=== PATIENT | male | born 1955 | race Caucasian/White ===

== ENCOUNTER 2021-04-24 13:07 | Inpatient (IN) | payer MEDICARE, OTHER ==
[~2021-04-24 13:07] MED LIST: Iopamidol-370 76% 500 ML 1 ML ONE
[2021-04-24] MEDS ORDERED: Ketamine 50 MG/ML (10ML VIAL) ONE (13:31)
[2021-04-24] MEDS ORDERED: Rocuronium Bromide 10 MG/ML (10ML VIAL) ONE (13:32)
[2021-04-24] MEDS ORDERED: Norepinephrine 8 MG/0.9% NS 250 ML ONE (13:41)
[2021-04-24] MEDS ORDERED: EPINEPHrine 1 MG/ML VIAL ONE (13:50)
[2021-04-24] MEDS ORDERED: EPINEPHrine 1 MG/10 ML Abboject SYRINGE ONE (13:51)
[2021-04-24 14:05] LABS: #Lymphocytes 0.9 thou/uL (1.20-3.40); #Monocytes 0.4 thou/uL (0.11-0.59); #Neutrophils 6.9 thou/uL (1.40-6.50); %Basophils 0.2 % (0.0-1.0); %Eosinophils 0.4 % (0.0-10.0); %Neutrophils 83.4 % (42.0-75.0); Mean Corpuscular HGB CONC 31.8 g/dL (32.0-36.0); Mean Corpuscular Hemoglobin 33.3 pg (27.0-31.0); Mean Platelet Volume 8.8 fL (7.4-10.4); Platelet Count 280 thou/uL (130-400); RBC Distribution Width 15.9 % (11.5-14.5); Red Blood Cell (RBC) Count 4.49 mill/uL (4.70-6.10); White Blood Cell (WBC) Count 8.3 thou/uL (4.8-10.8)
[2021-04-24 14:13] LABS: Acetaminophen Less than 6.0 mcg/mL (10.0-30.0); Alcohol Less than 10 mg/dL (Less than 10); Salicylate Less than 8.0 mg/dL (15.0-30.0)
[2021-04-24] MEDS ORDERED: Cefepime 2 GM VIAL ONE (14:20)
[2021-04-24] MEDS ORDERED: Fentanyl 100 MCG/2 ML VIAL ONE (14:20)
[2021-04-24 14:24] LABS: ALT (SGPT) 33 U/L (8-55); AST (SGOT) 40 U/L (5-34); Albumin 3.7 g/dL (3.4-4.8); Alkaline Phosphatase 141 U/L (40-110); Anion Gap 17 mmol/L (10-20); BUN (Urea Nitrogen) 31 mg/dL (8.4-25.7); Bilirubin, Total 1.7 mg/dL (0.2-1.2); Calc. Creatinine Clearance 0 mL/min (70-130); Calcium 8.4 mg/dL (7.8-10.44); Carbon Dioxide 27 mmol/L (23-31); Chloride 85 mmol/L (98-107); Glucose 206 mg/dL (80-115); Potassium 4.3 mmol/L (3.5-5.1); Protein, Total 6.7 g/dL (5.8-8.1); Sodium 125 mmol/L (136-145)
[2021-04-24 14:25] LABS: Hypochromia SLIGHT = 6-15 cells (100X) (0-5/hpf); MDiff Complete? YES; Macrocytosis SLIGHT = 6-15 cells (100X) (0-5/hpf); Platelet Morphology Comment Appears Adequate; Polychromasia SLIGHT = 2-3 cells (100X) (0-2/hpf)
[2021-04-24 14:54] LABS: CKMB 15.9 ng/mL (0-6.6)
[2021-04-24] MEDS ORDERED: Fentanyl CADD 100 ML IV SCH (15:00)
[2021-04-24] MEDS ORDERED: VANCOMYCIN 2 GRAM/400 ML BAG 2 GM in Premix Bag 1 BAG IVPB SCH (15:00)
[2021-04-24 15:27] LABS: Bilirubin Negative (Negative); Blood, Urine 3+ (Negative); Clarity Turbid (Clear); Glucose, Urine (Dipstick) Normal (Negative); Ketone, Urine Negative (Negative); Leukocyte 500 Leu/uL (Negative); Nitrite Negative (Negative); Protein, Urine (Dipstick) 100 mg/dL (Neg-Trace); RBC/HPF 21-50 HPF (0-3); Specific Gravity, Urine 1.011 (1.002-1.036); Squamous Epithelial 0-3 HPF (0-3); Urobilinogen Normal mg/dL (Less than 2); pH, Urine 6.5 (5.0-9.0)
[2021-04-24 15:28] LABS: SARS-CoV-2 NAA Rapid Test Not Detected (NotDetected)
[2021-04-24] MEDS ORDERED: Sodium Chloride 154 MEQ in Dextrose 10% in Water 1,000 ML IV SCH (15:30)
[2021-04-24 15:35] LABS: Actual Bicarbonate (HCO3a) 21.4 mEq/L (22-28); Analyzer IN Cardio ER; Base Excess (BEa) -1.3 mEq/L (-2.0 to +3.0); CO2 Tension 31.1 mmHg (35.0-45.0); Calcium, Ionized (arterial) 1.01 mmol/L (1.12-1.30); Carboxyhemoglobin (COHb) 1.4 gm% (0.0-3.0); Hemoglobin (Hb) 15.4 g/dL (14.0-18.0); Potassium - ABG Lab 3.33 mmol/L (3.70-5.30); pH, Arterial 7.46 (7.35-7.45)
[2021-04-24 15:39] LABS: Bacteria/HPF 1+ HPF (None Seen)
[2021-04-24 15:57] LABS: INR-International Normal Ratio 1.4; PTT 29.8 sec (22.9-36.1); Prothrombin Time 17.6 sec (12.0-14.7)
[2021-04-24 16:14] LABS: Amphetamine Not Detected (NotDetected); Barbiturates Screen Not Detected (NotDetected); Benzodiazepine Screen Not Detected (NotDetected); Cocaine Metabolite Screen Not Detected (NotDetected); Methadone Not Detected (NotDetected); Methamphetamine Not Detected (NotDetected); Opiate Screen Not Detected (NotDetected); Oxycodone Screen Not Detected (NotDetected); Phencyclidine (PCP) Not Detected (NotDetected); THC/Cannabinoid Screen Not Detected (NotDetected); Tricyclic Screen Not Detected (NotDetected)
[2021-04-24 16:20] LABS: ALV-art Gradient 356.125 mmHg (0-20); Puncture Site LRA
[2021-04-24 16:48] LABS: Lactic Acid 3.4 mmol/L (0.5-2.2)
[2021-04-24] MEDS ORDERED: Norepinephrine 8 MG/0.9% NS 250 ML IVPB PRN (17:46)
[2021-04-24] MEDS ORDERED: Acetaminophen 650 MG Suppository PR PRN (17:47)
[2021-04-24] MEDS ORDERED: Ondansetron PF 4 MG/2 ML Vial IVP PRN (17:47)
[2021-04-24] MEDS ORDERED: Dextrose 50% Abboject 50 ML SYRINGE SLOW IVP PRN (17:47)
[2021-04-24] MEDS ORDERED: Bisacodyl 10 MG SUPP PR PRN (17:47)
[2021-04-24] MEDS ORDERED: Dextrose 5% in Water 1,000 ML IV PRN (17:47)
[2021-04-24] MEDS ORDERED: Senokot S 8.6-50 MG TAB PER TUBE PRN (17:47)
[2021-04-24] MEDS ORDERED: Ventilator Sedation Protocol 1 EACH FS SCH (18:00)
[2021-04-24 18:20] LABS: Troponin I 0.276 ng/mL (< 0.028)
[2021-04-24] MEDS ORDERED: DISCONTINUE PREVIOUS NARCOTIC PAIN MEDICATIONS AND BENZODIAZEPINES FS SCH (19:00)
[2021-04-24] MEDS ORDERED: Morphine 2 MG/ML VIAL SLOW IVP PRN (19:00)
[2021-04-24] MEDS ORDERED: Propofol BOLUS 1,000 MG/100 ML VIAL IV PRN (19:00)
[2021-04-24] MEDS ORDERED: Fentanyl BOLUS 250 ML IVPB PRN (19:00)
[2021-04-24 20:53] LABS: Actual Bicarbonate (HCO3a) 24.8 mEq/L (22-28); Base Excess (BEa) -4.3 mEq/L (-2.0 to +3.0); Calcium, Ionized (arterial) 1.07 mmol/L (1.12-1.30); Carboxyhemoglobin (COHb) 1.1 gm% (0.0-3.0); Hemoglobin (Hb) 16.4 g/dL (14.0-18.0); O2 Tension (PaO2), arterial 66.7 mmHg (> 80.0); Potassium - ABG Lab 3.83 mmol/L (3.70-5.30); pH, Arterial 7.22 (7.35-7.45)
[2021-04-24 20:54] LABS: CO2 Tension 61.9 mmHg (35.0-45.0); Puncture Site RRA
[2021-04-24 20:57] LABS: ALV-art Gradient 283.725 mmHg (0-20)
[2021-04-24] MEDS: Vasopressin 20 UNIT, Admixture Fee 1 EACH in Sodium Chloride 0.9% 50 ML IV SCH (21:07)
[2021-04-24 21:12] LABS: Creatinine, Urine 72.16 mg/dL (63-166)
[2021-04-24] MEDS ORDERED: Hydrocortisone Sod Succ/PF 100 mg/2 ml Vial IVP SCH (21:30)
[2021-04-24] MEDS ORDERED: Lidocaine 1% (PF) 30 ML VIAL ONE ×2 (21:47→22:31)
[2021-04-24 21:49] LABS: Lactic Acid 3.8 mmol/L (0.5-2.2)
[2021-04-24] MEDS ORDERED: Furosemide 40 MG/4 ML VIAL ONE (21:56)
[2021-04-24] MEDS ORDERED: Dextrose 50% Abboject 50 ML SYRINGE ONE (21:57)
[2021-04-24] MEDS ORDERED: Sodium Bicarb 50 MEQ/50 ML Abboject 8.4% SYRINGE ONE (21:58)
[2021-04-24 22:02] LABS: Troponin I 0.387 ng/mL (< 0.028)
[2021-04-24] MEDS: Amiodarone 450 MG, Admixture Fee 1 EACH in Dextrose 5% in Water 250 ML IVPB SCH (22:14)
[2021-04-24 22:34] LABS: Actual Bicarbonate (HCO3a) 24.9 mEq/L (22-28); Base Excess (BEa) -4.6 mEq/L (-2.0 to +3.0); Calcium, Ionized (arterial) 1.06 mmol/L (1.12-1.30); Carboxyhemoglobin (COHb) 1.1 gm% (0.0-3.0); Hemoglobin (Hb) 16.2 g/dL (14.0-18.0); O2 Tension (PaO2), arterial 86.6 mmHg (> 80.0); Potassium - ABG Lab 3.65 mmol/L (3.70-5.30)
[2021-04-24 22:35] LABS: CO2 Tension 64.7 mmHg (35.0-45.0)
[2021-04-24 22:36] LABS: Puncture Site Arterial Line
[2021-04-24 22:38] LABS: ALV-art Gradient 545.525 mmHg (0-20)
[2021-04-24] MEDS ORDERED: Phenylephrine 40 MG/NS 250 ML 40 MG in Premix Bag 1 BAG IVPB SCH (23:15)
[2021-04-24] MEDS: Heparin 5,000 UNITS/ML VIAL SC SCH (23:23)
[2021-04-24] MEDS: Sodium Bicarbonate 150 MEQ in Dextrose 5 %-0.45 % NaCl 1,000 ML IV SCH (23:24)
[2021-04-24 23:57] LABS: INR-International Normal Ratio 1.4; PTT 34.5 sec (22.9-36.1); Prothrombin Time 17.1 sec (12.0-14.7)
[2021-04-25 00:12] LABS: Actual Bicarbonate (HCO3a) 25.4 mEq/L (22-28); Base Excess (BEa) -3.3 mEq/L (-2.0 to +3.0); Calcium, Ionized (arterial) 1.02 mmol/L (1.12-1.30); Carboxyhemoglobin (COHb) 1.3 gm% (0.0-3.0); Hemoglobin (Hb) 16.4 g/dL (14.0-18.0); Potassium - ABG Lab 3.67 mmol/L (3.70-5.30)
[2021-04-25 00:14] LABS: pH, Arterial 7.24 (7.35-7.45)
[2021-04-25 00:15] LABS: CO2 Tension 60.4 mmHg (35.0-45.0); O2 Tension (PaO2), arterial 52.6 mmHg (> 80.0)
[2021-04-25 00:16] LABS: Puncture Site Arterial Line
[2021-04-25] MEDS ORDERED: Furosemide 40 MG/4 ML VIAL SLOW IVP SCH (02:00)
[2021-04-25] MEDS: Cefepime 1 GM in Sodium Chloride 0.9% 100 ML IVPB SCH ×2 (02:38→13:48)
[2021-04-25] MEDS: Vasopressin 20 UNIT, Admixture Fee 1 EACH in Sodium Chloride 0.9% 50 ML IV SCH ×3 (02:50→15:47)
[2021-04-25 03:06] LABS: Actual Bicarbonate (HCO3a) 21.9 mEq/L (22-28); Base Excess (BEa) 1.3 mEq/L (-2.0 to +3.0); Calcium, Ionized (arterial) 0.96 mmol/L (1.12-1.30); Carboxyhemoglobin (COHb) 0.9 gm% (0.0-3.0); Hemoglobin (Hb) 15.5 g/dL (14.0-18.0); O2 Tension (PaO2), arterial 75.8 mmHg (> 80.0); Potassium - ABG Lab 3.61 mmol/L (3.70-5.30)
[2021-04-25] MEDS: Hydrocortisone Sod Succ/PF 100 mg/2 ml Vial IVP SCH ×4 (03:55→22:32)
[2021-04-25 04:37] LABS: CO2 Tension 25.3 mmHg (35.0-45.0); pH, Arterial 7.56 (7.35-7.45)
[2021-04-25 04:38] LABS: ALV-art Gradient 605.575 mmHg (0-20); Puncture Site Arterial Line
[2021-04-25 04:57] LABS: Hemoglobin 14.7 g/dL (14.0-18.0); Mean Corpuscular HGB CONC 31.8 g/dL (32.0-36.0); Mean Platelet Volume 8.3 fL (7.4-10.4); Platelet Count 256 thou/uL (130-400); RBC Distribution Width 15.7 % (11.5-14.5); Red Blood Cell (RBC) Count 4.44 mill/uL (4.70-6.10); White Blood Cell (WBC) Count 13.4 thou/uL (4.8-10.8)
[2021-04-25 05:17] LABS: ALT (SGPT) 28 U/L (8-55); AST (SGOT) 27 U/L (5-34); Albumin 3.1 g/dL (3.4-4.8); Alkaline Phosphatase 123 U/L (40-110); Anion Gap 19 mmol/L (10-20); BUN (Urea Nitrogen) 34 mg/dL (8.4-25.7); Calc. Creatinine Clearance 45 mL/min (70-130); Calcium 8.1 mg/dL (7.8-10.44); Carbon Dioxide 26 mmol/L (23-31); Chloride 87 mmol/L (98-107); Globulin 2.4 g/dL (2.4-3.5); Glucose 162 mg/dL (80-115); Potassium 3.7 mmol/L (3.5-5.1); Protein, Total 5.5 g/dL (5.8-8.1); Sodium 128 mmol/L (136-145)
[2021-04-25 05:26] LABS: Lactic Acid 4.4 mmol/L (0.5-2.2)
[2021-04-25 05:43] LABS: Band 23 % (5-11); Lymphocytes 4 % (21-51); MDiff Complete? YES; Monocytes 5 % (0-10); Neutrophil 68 % (42-75)
[2021-04-25] MEDS: Amiodarone 450 MG, Admixture Fee 1 EACH in Dextrose 5% in Water 250 ML IVPB SCH ×2 (06:58→22:33)
[2021-04-25 07:19] LABS: Actual Bicarbonate (HCO3a) 20.9 mEq/L (22-28); Base Excess (BEa) 1.2 mEq/L (-2.0 to +3.0); Calcium, Ionized (arterial) 0.94 mmol/L (1.12-1.30); Carboxyhemoglobin (COHb) 0.9 gm% (0.0-3.0); O2 Tension (PaO2), arterial 91.4 mmHg (> 80.0); Potassium - ABG Lab 3.39 mmol/L (3.70-5.30)
[2021-04-25 07:20] LABS: pH, Arterial 7.58 (7.35-7.45)
[2021-04-25 07:21] LABS: ALV-art Gradient 521.925 mmHg (0-20); CO2 Tension 22.7 mmHg (35.0-45.0); Puncture Site Arterial Line
[2021-04-25] MEDS: Heparin 5,000 UNITS/ML VIAL SC SCH ×3 (09:17→20:47)
[2021-04-25] MEDS: Pantoprazole 40 MG VIAL IVP SCH (09:18)
[2021-04-25] MEDS: Sodium Bicarbonate 150 MEQ in Dextrose 5 %-0.45 % NaCl 1,000 ML IV SCH ×2 (10:31→22:33)
[2021-04-25] MEDS: Lorazepam 2 MG/ML VIAL SLOW IVP PRN ×2 (11:02→15:45)
[2021-04-25] MEDS ORDERED: Fentanyl CADD 100 ML ONE ×2 (11:40→23:58)
[2021-04-25] MEDS: Albumin 25% 25 GM/100 ML BOT IVPB SCH ×2 (13:48→20:47)
[2021-04-25 16:23] LABS: Vancomycin, Random 20.6 ug/mL (See Comment)
[2021-04-25] MEDS ORDERED: VANCOMYCIN 2 GRAM/400 ML BAG 2 GM in Premix Bag 1 BAG IVPB SCH (17:00)
[2021-04-25] MEDS: Vancomycin 1.5 GRAM/300 ML BAG 1.5 GM in Premix Bag 1 BAG IVPB SCH (17:49)
[2021-04-25 19:32] LABS: Lactic Acid 3.5 mmol/L (0.5-2.2)
[2021-04-25] MEDS: Propofol 1,000 MG/100 ML VIAL IV PRN (21:38)
[2021-04-26] MEDS: Fentanyl CADD 100 ML IV SCH ×2 (00:18→13:07)
[2021-04-26 00:32] LABS: Lactic Acid 3.3 mmol/L (0.5-2.2)
[2021-04-26] MEDS: Cefepime 1 GM in Sodium Chloride 0.9% 100 ML IVPB SCH ×2 (02:14→15:40)
[2021-04-26] MEDS: Hydrocortisone Sod Succ/PF 100 mg/2 ml Vial IVP SCH ×4 (03:35→22:10)
[2021-04-26 04:55] LABS: ALT (SGPT) 15 U/L (8-55); AST (SGOT) 13 U/L (5-34); Albumin 3.3 g/dL (3.4-4.8); Alkaline Phosphatase 79 U/L (40-110); Anion Gap 18 mmol/L (10-20); BUN (Urea Nitrogen) 41 mg/dL (8.4-25.7); Calc. Creatinine Clearance 46 mL/min (70-130); Calcium 7.8 mg/dL (7.8-10.44); Carbon Dioxide 26 mmol/L (23-31); Chloride 88 mmol/L (98-107); Globulin 1.8 g/dL (2.4-3.5); Glucose 222 mg/dL (80-115); Protein, Total 5.1 g/dL (5.8-8.1); Sodium 129 mmol/L (136-145)
[2021-04-26 05:17] LABS: Potassium 2.6 mmol/L (3.5-5.1)
[2021-04-26] MEDS ORDERED: Potassium Chloride 40 MEQ in Premix Bag 1 BAG IVPB SCH (05:30)
[2021-04-26] MEDS ORDERED: Potassium Chloride 20 MEQ TAB PO SCH ×2 (05:30→18:15)
[2021-04-26 05:39] LABS: Mean Corpuscular HGB CONC 33.6 g/dL (32.0-36.0); Mean Corpuscular Hemoglobin 33.6 pg (27.0-31.0); Mean Corpuscular Volume 99.9 fL (78.0-98.0); Mean Platelet Volume 8.5 fL (7.4-10.4); Platelet Count 186 thou/uL (130-400); Red Blood Cell (RBC) Count 3.57 mill/uL (4.70-6.10); White Blood Cell (WBC) Count 9.1 thou/uL (4.8-10.8)
[2021-04-26] MEDS ORDERED: Magnesium 5 GM/10 ML Abboject SYRINGE ONE (06:11)
[2021-04-26 06:18] LABS: Band 27 % (5-11); Lymphocytes 6 % (21-51); MDiff Complete? YES; Monocytes 1 % (0-10); Neutrophil 63 % (42-75); Platelet Morphology Comment Appears Adequate; Polychromasia SLIGHT = 2-3 cells (100X) (0-2/hpf); Reactive Lymphocytes 3 % (0-10)
[2021-04-26 07:32] LABS: Lactic Acid 3.6 mmol/L (0.5-2.2)
[2021-04-26 07:34] LABS: Phosphorus 2.8 mg/dL (2.3-4.7)
[2021-04-26] MEDS: Vasopressin 20 UNIT, Admixture Fee 1 EACH in Sodium Chloride 0.9% 50 ML IV SCH (07:46)
[2021-04-26] MEDS: Propofol 1,000 MG/100 ML VIAL IV PRN ×2 (08:09→22:10)
[2021-04-26] MEDS: Pantoprazole 40 MG VIAL IVP SCH (08:10)
[2021-04-26] MEDS: Potassium Bicarbonate/Cit Ac 20 MEQ TAB PER TUBE SCH ×2 (08:10→10:56)
[2021-04-26] MEDS: Heparin 5,000 UNITS/ML VIAL SC SCH ×3 (08:11→20:08)
[2021-04-26 08:17] LABS: Actual Bicarbonate (HCO3a) 22.5 mEq/L (22-28); Base Excess (BEa) 4.1 mEq/L (-2.0 to +3.0); Carboxyhemoglobin (COHb) 0.2 gm% (0.0-3.0); Hemoglobin (Hb) 12.7 g/dL (14.0-18.0); Potassium - ABG Lab 3.53 mmol/L (3.70-5.30)
[2021-04-26 08:41] LABS: CO2 Tension 19.4 mmHg (35.0-45.0); O2 Tension (PaO2), arterial 52.8 mmHg (> 80.0); Puncture Site Arterial Line; pH, Arterial 7.68 (7.35-7.45)
[2021-04-26] MEDS ORDERED: Digoxin 0.5 MG/2 ML AMP SLOW IVP SCH (09:45)
[2021-04-26 10:10] LABS: Anion Gap 18 mmol/L (10-20); BUN (Urea Nitrogen) 39 mg/dL (8.4-25.7); Calc. Creatinine Clearance 46 mL/min (70-130); Calcium 7.8 mg/dL (7.8-10.44); Carbon Dioxide 26 mmol/L (23-31); Chloride 88 mmol/L (98-107); Glucose 240 mg/dL (80-115); Potassium 3.3 mmol/L (3.5-5.1); Sodium 129 mmol/L (136-145)
[2021-04-26] MEDS: Sodium Bicarbonate 150 MEQ in Dextrose 5 %-0.45 % NaCl 1,000 ML IV SCH (11:48)
[2021-04-26 12:25] LABS: Lactic Acid 3.3 mmol/L (0.5-2.2)
[2021-04-26] MEDS ORDERED: Fentanyl CADD 100 ML ONE (13:04)
[2021-04-26] MEDS: CEFEPIME HCL IN DEXTROSE 5 % 1 GM in Premix Bag 1 BAG IVPB SCH (15:18)
[2021-04-26 16:41] LABS: Albumin 3.1 g/dL (3.4-4.8); Anion Gap 19 mmol/L (10-20); BUN (Urea Nitrogen) 39 mg/dL (8.4-25.7); BUN/Creatinine Ratio 16.46; Calc. Creatinine Clearance 44 mL/min (70-130); Calcium 7.8 mg/dL (7.8-10.44); Carbon Dioxide 28 mmol/L (23-31); Chloride 87 mmol/L (98-107); Glucose 172 mg/dL (80-115); Phosphorus 3.3 mg/dL (2.3-4.7); Potassium 3.5 mmol/L (3.5-5.1); Sodium 130 mmol/L (136-145)
[2021-04-26] MEDS: Lactated Ringer's 1,000 ML IV SCH (17:25)
[2021-04-26] MEDS: Vancomycin 1.5 GRAM/300 ML BAG 1.5 GM in Premix Bag 1 BAG IVPB SCH (17:27)
[2021-04-26 18:57] LABS: Lactic Acid 3.8 mmol/L (0.5-2.2)
[2021-04-26] MEDS ORDERED: Potassium Bicarbonate/Cit Ac 20 MEQ TAB PO SCH (19:00)
[2021-04-27 01:09] LABS: Lactic Acid 2.8 mmol/L (0.5-2.2)
[2021-04-27] MEDS ORDERED: Fentanyl CADD 100 ML ONE ×2 (01:54→15:04)
[2021-04-27] MEDS: CEFEPIME HCL IN DEXTROSE 5 % 1 GM in Premix Bag 1 BAG IVPB SCH ×2 (01:58→13:59)
[2021-04-27] MEDS: Fentanyl CADD 100 ML IV SCH (01:59)
[2021-04-27] MEDS: Hydrocortisone Sod Succ/PF 100 mg/2 ml Vial IVP SCH ×4 (05:01→21:01)
[2021-04-27] MEDS: Lactated Ringer's 1,000 ML IV SCH ×2 (05:04→19:46)
[2021-04-27 05:15] LABS: ALT (SGPT) 17 U/L (8-55); AST (SGOT) 12 U/L (5-34); Alkaline Phosphatase 76 U/L (40-110); Anion Gap 18 mmol/L (10-20); BUN (Urea Nitrogen) 42 mg/dL (8.4-25.7); Bilirubin, Total 1.8 mg/dL (0.2-1.2); Calc. Creatinine Clearance 49 mL/min (70-130); Calcium 8.2 mg/dL (7.8-10.44); Carbon Dioxide 29 mmol/L (23-31); Chloride 87 mmol/L (98-107); Glucose 130 mg/dL (80-115); Magnesium 1.8 mg/dL (1.6-2.6); Potassium 3.5 mmol/L (3.5-5.1); Sodium 130 mmol/L (136-145)
[2021-04-27 05:18] LABS: Lactic Acid 2.5 mmol/L (0.5-2.2)
[2021-04-27 05:24] LABS: Band 14 % (5-11); Hemoglobin 12.2 g/dL (14.0-18.0); Lymphocytes 5 % (21-51); MDiff Complete? YES; Mean Corpuscular Hemoglobin 34.5 pg (27.0-31.0); Mean Platelet Volume 8.9 fL (7.4-10.4); Monocytes 7 % (0-10); Neutrophil 74 % (42-75); Platelet Count 181 thou/uL (130-400); RBC Distribution Width 16.3 % (11.5-14.5); Red Blood Cell (RBC) Count 3.55 mill/uL (4.70-6.10); White Blood Cell (WBC) Count 12.6 thou/uL (4.8-10.8)
[2021-04-27] MEDS: Propofol 1,000 MG/100 ML VIAL IV PRN ×2 (05:56→15:22)
[2021-04-27 08:12] LABS: Actual Bicarbonate (HCO3a) 26.1 mEq/L (22-28); Base Excess (BEa) 5.1 mEq/L (-2.0 to +3.0); Calcium, Ionized (arterial) 0.94 mmol/L (1.12-1.30); Carboxyhemoglobin (COHb) 0.6 gm% (0.0-3.0); Potassium - ABG Lab 3.32 mmol/L (3.70-5.30)
[2021-04-27 08:14] LABS: pH, Arterial 7.59 (7.35-7.45)
[2021-04-27 08:15] LABS: O2 Tension (PaO2), arterial 50.6 mmHg (> 80.0); Peep/CPAP 12.5 cmH2O; Puncture Site Arterial Line
[2021-04-27] MEDS ORDERED: Digoxin 0.5 MG/2 ML AMP SLOW IVP SCH (08:45)
[2021-04-27] MEDS: Digoxin 0.5 MG/2 ML AMP SLOW IVP SCH (08:50)
[2021-04-27] MEDS: Pantoprazole 40 MG VIAL IVP SCH (08:52)
[2021-04-27] MEDS: Heparin 5,000 UNITS/ML VIAL SC SCH ×3 (08:54→21:00)
[2021-04-27] MEDS ORDERED: Vecuronium 10 MG VIAL IVP PRN (11:34)
[2021-04-27] MEDS ORDERED: Albumin 25% 25 GM/100 ML BOT IVPB SCH (14:25)
[2021-04-27] MEDS ORDERED: Furosemide 20 MG/2 ML VIAL SLOW IVP SCH (14:30)
[2021-04-27 17:13] LABS: Vancomycin, Trough 34.7 ug/mL
[2021-04-27] MEDS: Furosemide 20 MG/2 ML VIAL SLOW IVP SCH (22:53)
[2021-04-28] MEDS: CEFEPIME HCL IN DEXTROSE 5 % 1 GM in Premix Bag 1 BAG IVPB SCH ×2 (01:12→13:28)
[2021-04-28] MEDS: Propofol 1,000 MG/100 ML VIAL IV PRN ×2 (01:12→10:24)
[2021-04-28] MEDS: Hydrocortisone Sod Succ/PF 100 mg/2 ml Vial IVP SCH ×4 (03:27→21:34)
[2021-04-28] MEDS ORDERED: Fentanyl CADD 100 ML ONE (04:08)
[2021-04-28] MEDS: Fentanyl CADD 100 ML IV SCH (04:11)
[2021-04-28 04:44] LABS: ALT (SGPT) 15 U/L (8-55); AST (SGOT) 11 U/L (5-34); Alkaline Phosphatase 69 U/L (40-110); Anion Gap 16 mmol/L (10-20); BUN (Urea Nitrogen) 40 mg/dL (8.4-25.7); Bilirubin, Total 1.6 mg/dL (0.2-1.2); Calc. Creatinine Clearance 61 mL/min (70-130); Calcium 8.3 mg/dL (7.8-10.44); Carbon Dioxide 33 mmol/L (23-31); Chloride 89 mmol/L (98-107); Glucose 124 mg/dL (80-115); Magnesium 1.9 mg/dL (1.6-2.6); Sodium 135 mmol/L (136-145)
[2021-04-28 04:46] LABS: Digoxin 0.45 ng/mL (0.8-2.0)
[2021-04-28 04:47] LABS: Band 3 % (5-11); Hemoglobin 11.7 g/dL (14.0-18.0); Lymphocytes 5 % (21-51); MDiff Complete? YES; Mean Corpuscular HGB CONC 32.7 g/dL (32.0-36.0); Mean Corpuscular Hemoglobin 33.5 pg (27.0-31.0); Mean Platelet Volume 9.1 fL (7.4-10.4); Monocytes 5 % (0-10); Neutrophil 87 % (42-75); Platelet Count 161 thou/uL (130-400); White Blood Cell (WBC) Count 9.2 thou/uL (4.8-10.8)
[2021-04-28 04:48] LABS: Potassium 2.6 mmol/L (3.5-5.1)
[2021-04-28] MEDS ORDERED: Electrolyte Replacement Protocol 1 EACH FS PRN (05:33)
[2021-04-28] MEDS ORDERED: Magnesium 2 GM/50 ML 2 GM in Premix Bag 1 BAG IVPB SCH (05:45)
[2021-04-28] MEDS ORDERED: Potassium Chloride 40 MEQ in Premix Bag 1 BAG IVPB SCH (05:45)
[2021-04-28] MEDS ORDERED: Potassium Chloride 20 MEQ TAB PER TUBE SCH (06:00)
[2021-04-28 06:21] LABS: Phosphorus 3.7 mg/dL (2.3-4.7)
[2021-04-28] MEDS: Potassium Bicarbonate/Cit Ac 20 MEQ TAB PER TUBE SCH ×3 (06:30→13:30)
[2021-04-28] MEDS: Furosemide 20 MG/2 ML VIAL SLOW IVP SCH ×3 (06:31→22:02)
[2021-04-28] MEDS ORDERED: Digoxin 0.5 MG/2 ML AMP SLOW IVP SCH (07:00)
[2021-04-28 07:22] LABS: Actual Bicarbonate (HCO3a) 29.6 mEq/L (22-28); Base Excess (BEa) 7.9 mEq/L (-2.0 to +3.0); CO2 Tension 31.8 mmHg (35.0-45.0); Calcium, Ionized (arterial) 1.01 mmol/L (1.12-1.30); Carboxyhemoglobin (COHb) 0.2 gm% (0.0-3.0); Hemoglobin (Hb) 12.8 g/dL (14.0-18.0); O2 Tension (PaO2), arterial 67.7 mmHg (> 80.0); Potassium - ABG Lab 2.54 mmol/L (3.70-5.30)
[2021-04-28] MEDS: Digoxin 0.5 MG/2 ML AMP SLOW IVP SCH (07:41)
[2021-04-28 07:42] LABS: Puncture Site RRA; pH, Arterial 7.59 (7.35-7.45)
[2021-04-28 07:45] LABS: Peep/CPAP 12.5 cmH2O
[2021-04-28] MEDS: Pantoprazole 40 MG VIAL IVP SCH (08:03)
[2021-04-28] MEDS: Heparin 5,000 UNITS/ML VIAL SC SCH ×3 (08:03→21:34)
[2021-04-28] MEDS ORDERED: Electrolyte Replacement Protocol FS PRN (12:45)
[2021-04-28 17:28] LABS: Vancomycin, Random 27.9 ug/mL (See Comment)
[2021-04-28] MEDS ORDERED: Vancomycin 1.5 GRAM/300 ML BAG 1.5 GM in Premix Bag 1 BAG IVPB SCH (18:00)
[2021-04-29] MEDS: CEFEPIME HCL IN DEXTROSE 5 % 1 GM in Premix Bag 1 BAG IVPB SCH ×2 (01:06→14:35)
[2021-04-29 03:56] LABS: ALT (SGPT) 14 U/L (8-55); AST (SGOT) 10 U/L (5-34); Albumin 3.2 g/dL (3.4-4.8); Alkaline Phosphatase 76 U/L (40-110); Anion Gap 14 mmol/L (10-20); BUN (Urea Nitrogen) 43 mg/dL (8.4-25.7); Bilirubin, Total 1.2 mg/dL (0.2-1.2); Calc. Creatinine Clearance 55 mL/min (70-130); Calcium 8.4 mg/dL (7.8-10.44); Carbon Dioxide 35 mmol/L (23-31); Chloride 90 mmol/L (98-107); Globulin 2.1 g/dL (2.4-3.5); Glucose 149 mg/dL (80-115); Potassium 3.4 mmol/L (3.5-5.1); Protein, Total 5.3 g/dL (5.8-8.1); Sodium 136 mmol/L (136-145)
[2021-04-29 04:10] LABS: Hemoglobin 12.7 g/dL (14.0-18.0); Mean Corpuscular HGB CONC 31.5 g/dL (32.0-36.0); Mean Corpuscular Hemoglobin 32.8 pg (27.0-31.0); Mean Platelet Volume 9.4 fL (7.4-10.4); Platelet Count 155 thou/uL (130-400); RBC Distribution Width 15.8 % (11.5-14.5); Red Blood Cell (RBC) Count 3.87 mill/uL (4.70-6.10); White Blood Cell (WBC) Count 9.2 thou/uL (4.8-10.8)
[2021-04-29] MEDS: Hydrocortisone Sod Succ/PF 100 mg/2 ml Vial IVP SCH (04:36)
[2021-04-29] MEDS ORDERED: Potassium Bicarbonate/Cit Ac 20 MEQ TAB PO SCH (04:45)
[2021-04-29 04:52] LABS: Band 7 % (5-11); Lymphocytes 3 % (21-51); MDiff Complete? YES; Monocytes 2 % (0-10); Neutrophil 88 % (42-75)
[2021-04-29] MEDS: Furosemide 20 MG/2 ML VIAL SLOW IVP SCH ×3 (06:03→22:07)
[2021-04-29 07:32] LABS: Actual Bicarbonate (HCO3a) 37.5 mEq/L (22-28); Base Excess (BEa) 10.9 mEq/L (-2.0 to +3.0); CO2 Tension 56.7 mmHg (35.0-45.0); Calcium, Ionized (arterial) 1.07 mmol/L (1.12-1.30); O2 Tension (PaO2), arterial 76.9 mmHg (> 80.0); Potassium - ABG Lab 4.03 mmol/L (3.70-5.30); pH, Arterial 7.44 (7.35-7.45)
[2021-04-29 07:34] LABS: Puncture Site RRA
[2021-04-29 07:35] LABS: ALV-art Gradient 208.725 mmHg (0-20); Peep/CPAP 12.5 cmH2O
[2021-04-29] MEDS: Heparin 5,000 UNITS/ML VIAL SC SCH ×3 (08:29→21:14)
[2021-04-29] MEDS: Pantoprazole 40 MG VIAL IVP SCH (08:30)
[2021-04-29] MEDS: Digoxin 0.125 MG TAB PER TUBE SCH (09:35)
[2021-04-29] MEDS ORDERED: Albumin 25% 25 GM/100 ML BOT IVPB SCH (12:47)
[2021-04-29] MEDS ORDERED: Metolazone 2.5 MG TAB PER TUBE SCH (13:00)
[2021-04-29] MEDS: Lorazepam 2 MG/ML VIAL SLOW IVP PRN (22:07)
[2021-04-30] MEDS: CEFEPIME HCL IN DEXTROSE 5 % 1 GM in Premix Bag 1 BAG IVPB SCH ×2 (02:02→15:27)
[2021-04-30 05:31] LABS: Hemoglobin 13.1 g/dL (14.0-18.0); Mean Corpuscular HGB CONC 31.9 g/dL (32.0-36.0); Mean Corpuscular Hemoglobin 33.2 pg (27.0-31.0); Mean Platelet Volume 9.6 fL (7.4-10.4); Platelet Count 138 thou/uL (130-400); RBC Distribution Width 15.5 % (11.5-14.5); Red Blood Cell (RBC) Count 3.94 mill/uL (4.70-6.10); White Blood Cell (WBC) Count 10.1 thou/uL (4.8-10.8)
[2021-04-30 05:51] LABS: ALT (SGPT) 12 U/L (8-55); AST (SGOT) 11 U/L (5-34); Albumin 3.1 g/dL (3.4-4.8); Alkaline Phosphatase 64 U/L (40-110); BUN (Urea Nitrogen) 47 mg/dL (8.4-25.7); Bilirubin, Total 1.1 mg/dL (0.2-1.2); Calc. Creatinine Clearance 66 mL/min (70-130); Calcium 8.8 mg/dL (7.8-10.44); Globulin 2.1 g/dL (2.4-3.5); Glucose 128 mg/dL (80-115); Protein, Total 5.2 g/dL (5.8-8.1)
[2021-04-30 05:57] LABS: Lymphocytes 17 % (21-51); MDiff Complete? YES; Monocytes 9 % (0-10); Neutrophil 74 % (42-75)
[2021-04-30 06:00] LABS: Anion Gap 16 mmol/L (10-20); Carbon Dioxide 39 mmol/L (23-31); Chloride 89 mmol/L (98-107); Sodium 141 mmol/L (136-145)
[2021-04-30] MEDS: Furosemide 20 MG/2 ML VIAL SLOW IVP SCH ×2 (06:21→15:28)
[2021-04-30 06:37] LABS: Potassium 2.7 mmol/L (3.5-5.1)
[2021-04-30] MEDS ORDERED: Potassium Bicarbonate/Cit Ac 20 MEQ TAB PER TUBE SCH (06:45)
[2021-04-30 07:05] LABS: Actual Bicarbonate (HCO3a) 37.5 mEq/L (22-28); Base Excess (BEa) 13.4 mEq/L (-2.0 to +3.0); CO2 Tension 44.3 mmHg (35.0-45.0); Calcium, Ionized (arterial) 1.07 mmol/L (1.12-1.30); Potassium - ABG Lab 2.61 mmol/L (3.70-5.30)
[2021-04-30 07:09] LABS: O2 Tension (PaO2), arterial 57.4 mmHg (> 80.0); pH, Arterial 7.55 (7.35-7.45)
[2021-04-30 07:10] LABS: Puncture Site RRA
[2021-04-30 07:11] LABS: ALV-art Gradient 172.425 mmHg (0-20); Peep/CPAP 12.5 cmH2O
[2021-04-30] MEDS: Potassium Chloride 20 MEQ TAB PER TUBE SCH ×3 (08:01→15:27)
[2021-04-30] MEDS: Digoxin 0.125 MG TAB PER TUBE SCH (08:02)
[2021-04-30] MEDS: Heparin 5,000 UNITS/ML VIAL SC SCH ×3 (08:02→20:36)
[2021-04-30] MEDS: Pantoprazole 40 MG GRANULES PACKET PER TUBE SCH (08:02)
[2021-04-30] MEDS ORDERED: Lidocaine 1% (PF) 30 ML VIAL FS SCH (10:45)
[2021-04-30] MEDS: Propofol 1,000 MG/100 ML VIAL IV PRN (10:51)
[2021-04-30 16:42] LABS: BUN (Urea Nitrogen) 45 mg/dL (8.4-25.7); Calc. Creatinine Clearance 75 mL/min (70-130); Calcium 8.6 mg/dL (7.8-10.44); Glucose 121 mg/dL (80-115)
[2021-04-30 16:51] LABS: Anion Gap 15 mmol/L (10-20); Carbon Dioxide 39 mmol/L (23-31); Chloride 89 mmol/L (98-107); Sodium 140 mmol/L (136-145)
[2021-04-30 17:01] LABS: Potassium 2.9 mmol/L (3.5-5.1)
[2021-04-30 17:43] LABS: Magnesium 1.7 mg/dL (1.6-2.6)
[2021-04-30] MEDS ORDERED: Albumin 25% 25 GM/100 ML BOT IVPB SCH (18:00)
[2021-04-30] MEDS ORDERED: Metolazone 2.5 MG TAB PO SCH (18:00)
[2021-04-30] MEDS: Potassium Chloride 20 MEQ TAB PO SCH ×2 (18:59→20:36)
[2021-05-01] MEDS: CEFEPIME HCL IN DEXTROSE 5 % 1 GM in Premix Bag 1 BAG IVPB SCH ×2 (02:20→13:41)
[2021-05-01] MEDS: Potassium Chloride 20 MEQ TAB PO SCH ×2 (03:20)
[2021-05-01 05:17] LABS: Hemoglobin 13.1 g/dL (14.0-18.0); Mean Corpuscular HGB CONC 32.4 g/dL (32.0-36.0); Mean Corpuscular Hemoglobin 33.7 pg (27.0-31.0); Platelet Count 132 thou/uL (130-400); RBC Distribution Width 15.6 % (11.5-14.5); Red Blood Cell (RBC) Count 3.89 mill/uL (4.70-6.10); White Blood Cell (WBC) Count 9.4 thou/uL (4.8-10.8)
[2021-05-01 05:39] LABS: ALT (SGPT) 11 U/L (8-55); AST (SGOT) 13 U/L (5-34); Albumin 3.4 g/dL (3.4-4.8); Alkaline Phosphatase 65 U/L (40-110); BUN (Urea Nitrogen) 43 mg/dL (8.4-25.7); Bilirubin, Total 1.9 mg/dL (0.2-1.2); Calc. Creatinine Clearance 80 mL/min (70-130); Calcium 9.3 mg/dL (7.8-10.44); Digoxin 0.85 ng/mL (0.8-2.0); Globulin 2.1 g/dL (2.4-3.5); Glucose 113 mg/dL (80-115); Protein, Total 5.5 g/dL (5.8-8.1)
[2021-05-01 05:48] LABS: Anion Gap 18 mmol/L (10-20); Carbon Dioxide 39 mmol/L (23-31); Chloride 89 mmol/L (98-107); Potassium 3.1 mmol/L (3.5-5.1); Sodium 143 mmol/L (136-145)
[2021-05-01] MEDS ORDERED: Magnesium 2 GM/50 ML 2 GM in Premix Bag 1 BAG IVPB SCH (06:15)
[2021-05-01] MEDS: Potassium Bicarbonate/Cit Ac 20 MEQ TAB PER TUBE SCH ×4 (06:35→14:35)
[2021-05-01] MEDS: Furosemide 20 MG/2 ML VIAL SLOW IVP SCH ×4 (06:35→22:08)
[2021-05-01 06:58] LABS: Band 3 % (5-11); Eosinophils 1 % (0-10); Lymphocytes 27 % (21-51); MDiff Complete? YES; Monocytes 3 % (0-10); Neutrophil 66 % (42-75)
[2021-05-01 07:31] LABS: Actual Bicarbonate (HCO3a) 41.8 mEq/L (22-28); Base Excess (BEa) 18.7 mEq/L (-2.0 to +3.0); CO2 Tension 40.9 mmHg (35.0-45.0); Calcium, Ionized (arterial) 1.09 mmol/L (1.12-1.30); Carboxyhemoglobin (COHb) 0.7 gm% (0.0-3.0); Potassium - ABG Lab 3.37 mmol/L (3.70-5.30)
[2021-05-01 07:36] LABS: pH, Arterial 7.63 (7.35-7.45)
[2021-05-01 07:37] LABS: ALV-art Gradient 178.975 mmHg (0-20); O2 Tension (PaO2), arterial 55.1 mmHg (> 80.0); Puncture Site RRA
[2021-05-01] MEDS: Heparin 5,000 UNITS/ML VIAL SC SCH (08:30)
[2021-05-01] MEDS: Metolazone 2.5 MG TAB PO SCH (08:30)
[2021-05-01] MEDS: Digoxin 0.125 MG TAB PER TUBE SCH (08:30)
[2021-05-01] MEDS: Pantoprazole 40 MG GRANULES PACKET PER TUBE SCH (08:31)
[2021-05-01] MEDS: acetaZOLAMIDE Sodium 500 mg Vial IVP SCH (13:41)
[2021-05-01 16:53] LABS: Albumin 3.4 g/dL (3.4-4.8); BUN (Urea Nitrogen) 43 mg/dL (8.4-25.7); BUN/Creatinine Ratio 34.96; Calc. Creatinine Clearance 86 mL/min (70-130); Calcium 9.6 mg/dL (7.8-10.44); Glucose 134 mg/dL (80-115)
[2021-05-01 17:02] LABS: Chloride 87 mmol/L (98-107); Potassium 4.6 mmol/L (3.5-5.1); Sodium 141 mmol/L (136-145)
[2021-05-01 17:05] LABS: Anion Gap 16 mmol/L (10-20)
[2021-05-01 17:15] LABS: Carbon Dioxide 43 mmol/L (23-31); Phosphorus 1.7 mg/dL (2.3-4.7)
[2021-05-01] MEDS: Albumin 25% 25 GM/100 ML BOT IVPB SCH (19:27)
[2021-05-01] MEDS ORDERED: Potassium Phosphate 12 MMOL in Sodium Chloride 0.9% 100 ML IVPB SCH (19:30)
[2021-05-01] MEDS: Apixaban 5 MG TAB PO SCH (21:48)
[2021-05-01] MEDS ORDERED: hydrALAZINE 20 MG/ML VIAL SLOW IVP SCH (22:15)
[2021-05-02] MEDS: CEFEPIME HCL IN DEXTROSE 5 % 1 GM in Premix Bag 1 BAG IVPB SCH ×2 (01:48→15:02)
[2021-05-02] MEDS: Lorazepam 2 MG/ML VIAL SLOW IVP PRN (01:50)
[2021-05-02 04:40] LABS: Band 2 % (5-11); Hemoglobin 12.8 g/dL (14.0-18.0); Lymphocytes 15 % (21-51); MDiff Complete? YES; Macrocytosis SLIGHT = 6-15 cells (100X) (0-5/hpf); Mean Corpuscular HGB CONC 31.3 g/dL (32.0-36.0); Mean Corpuscular Hemoglobin 32.8 pg (27.0-31.0); Mean Platelet Volume 9.9 fL (7.4-10.4); Neutrophil 81 % (42-75); Platelet Count 159 thou/uL (130-400); Platelet Morphology Comment Appears Adequate; RBC Distribution Width 15.6 % (11.5-14.5); Reactive Lymphocytes 2 % (0-10); Red Blood Cell (RBC) Count 3.89 mill/uL (4.70-6.10); White Blood Cell (WBC) Count 8.3 thou/uL (4.8-10.8)
[2021-05-02 04:51] LABS: ALT (SGPT) 17 U/L (8-55); AST (SGOT) 19 U/L (5-34); Albumin 3.5 g/dL (3.4-4.8); Alkaline Phosphatase 71 U/L (40-110); BUN (Urea Nitrogen) 43 mg/dL (8.4-25.7); Calc. Creatinine Clearance 94 mL/min (70-130); Calcium 9.5 mg/dL (7.8-10.44); Globulin 2.4 g/dL (2.4-3.5); Glucose 127 mg/dL (80-115); Protein, Total 5.9 g/dL (5.8-8.1)
[2021-05-02 05:01] LABS: Anion Gap 18 mmol/L (10-20); Carbon Dioxide 36 mmol/L (23-31); Chloride 89 mmol/L (98-107); Potassium 3.3 mmol/L (3.5-5.1); Sodium 140 mmol/L (136-145)
[2021-05-02 05:28] LABS: Phosphorus 2.7 mg/dL (2.3-4.7)
[2021-05-02] MEDS ORDERED: Potassium Bicarbonate/Cit Ac 20 MEQ TAB PER TUBE SCH (06:00)
[2021-05-02] MEDS: Furosemide 20 MG/2 ML VIAL SLOW IVP SCH ×3 (06:02→23:32)
[2021-05-02 07:00] LABS: Actual Bicarbonate (HCO3a) 38.1 mEq/L (22-28); Base Excess (BEa) 14.8 mEq/L (-2.0 to +3.0); CO2 Tension 41.1 mmHg (35.0-45.0); Calcium, Ionized (arterial) 1.12 mmol/L (1.12-1.30); Carboxyhemoglobin (COHb) 1.2 gm% (0.0-3.0); Potassium - ABG Lab 2.89 mmol/L (3.70-5.30)
[2021-05-02 07:09] LABS: pH, Arterial 7.59 (7.35-7.45)
[2021-05-02 07:10] LABS: ALV-art Gradient 175.325 mmHg (0-20); O2 Tension (PaO2), arterial 58.5 mmHg (> 80.0); Puncture Site RRA
[2021-05-02] MEDS: Metolazone 2.5 MG TAB PO SCH (09:33)
[2021-05-02] MEDS: Digoxin 0.125 MG TAB PER TUBE SCH (09:33)
[2021-05-02] MEDS: Pantoprazole 40 MG GRANULES PACKET PER TUBE SCH (09:33)
[2021-05-02] MEDS: Apixaban 5 MG TAB PO SCH ×2 (09:34→20:12)
[2021-05-02] MEDS ORDERED: Polyethylene Glycol 3350 17 GM Packet PER TUBE SCH (10:45)
[2021-05-02] MEDS ORDERED: Albumin 25% 25 GM/100 ML BOT IVPB SCH (11:12)
[2021-05-02] MEDS: acetaZOLAMIDE Sodium 500 mg Vial IVP SCH (12:30)
[2021-05-02] MEDS: Albumin 25% 25 GM/100 ML BOT IVPB SCH (20:11)
[2021-05-02 20:53] LABS: Potassium 3.1 mmol/L (3.5-5.1)
[2021-05-02] MEDS ORDERED: Potassium Bicarbonate/Cit Ac 20 MEQ TAB PO SCH (21:30)
[2021-05-03 04:26] LABS: Hemoglobin 13.2 g/dL (14.0-18.0); Mean Corpuscular HGB CONC 32.9 g/dL (32.0-36.0); Mean Platelet Volume 10.3 fL (7.4-10.4); Platelet Count 175 thou/uL (130-400); RBC Distribution Width 15.4 % (11.5-14.5); Red Blood Cell (RBC) Count 3.87 mill/uL (4.70-6.10)
[2021-05-03 04:33] LABS: ALT (SGPT) 42 U/L (8-55); AST (SGOT) 64 U/L (5-34); Albumin 3.8 g/dL (3.4-4.8); Alkaline Phosphatase 83 U/L (40-110); BUN (Urea Nitrogen) 42 mg/dL (8.4-25.7); Calc. Creatinine Clearance 107 mL/min (70-130); Calcium 9.8 mg/dL (7.8-10.44); Globulin 2.4 g/dL (2.4-3.5); Glucose 106 mg/dL (80-115); Protein, Total 6.2 g/dL (5.8-8.1)
[2021-05-03 04:42] LABS: Anion Gap 14 mmol/L (10-20); Carbon Dioxide 38 mmol/L (23-31); Chloride 90 mmol/L (98-107); Potassium 3.3 mmol/L (3.5-5.1); Sodium 139 mmol/L (136-145)
[2021-05-03 04:45] LABS: Lymphocytes 20 % (21-51); MDiff Complete? YES; Monocytes 13 % (0-10); Neutrophil 67 % (42-75); Platelet Morphology Comment Appears Adequate
[2021-05-03] MEDS ORDERED: Potassium Bicarbonate/Cit Ac 20 MEQ TAB PO SCH (05:00)
[2021-05-03] MEDS: Furosemide 20 MG/2 ML VIAL SLOW IVP SCH ×3 (06:05→22:30)
[2021-05-03] MEDS: Polyethylene Glycol 3350 17 GM Packet PER TUBE SCH (08:45)
[2021-05-03] MEDS: Apixaban 5 MG TAB PO SCH ×2 (08:45→20:24)
[2021-05-03] MEDS: Digoxin 0.125 MG TAB PER TUBE SCH (08:46)
[2021-05-03] MEDS: Pantoprazole 40 MG GRANULES PACKET PER TUBE SCH (08:46)
[2021-05-03] MEDS ORDERED: Electrolyte Replacement Protocol 1 EACH FS PRN (09:45)
[2021-05-03] MEDS ORDERED: Spironolactone 25 MG TAB PO SCH (10:15)
[2021-05-03] MEDS: acetaZOLAMIDE Sodium 500 mg Vial IVP SCH (12:04)
[2021-05-03 12:47] LABS: Potassium 3.6 mmol/L (3.5-5.1)
[2021-05-03] MEDS: Amiodarone 200 MG TAB PO SCH ×2 (13:53→20:24)
[2021-05-03] MEDS ORDERED: Amiodarone 200 MG TAB PO SCH (14:15)
[2021-05-04 05:20] LABS: Eosinophils 2 % (0-10); Hemoglobin 12.2 g/dL (14.0-18.0); Lymphocytes 24 % (21-51); MDiff Complete? YES; Mean Corpuscular HGB CONC 31.6 g/dL (32.0-36.0); Mean Corpuscular Hemoglobin 32.9 pg (27.0-31.0); Mean Platelet Volume 9.3 fL (7.4-10.4); Monocytes 10 % (0-10); Neutrophil 64 % (42-75); Platelet Count 194 thou/uL (130-400); Platelet Morphology Comment Appears Adequate; RBC Distribution Width 15.3 % (11.5-14.5); Red Blood Cell (RBC) Count 3.69 mill/uL (4.70-6.10); White Blood Cell (WBC) Count 8.2 thou/uL (4.8-10.8)
[2021-05-04 05:27] LABS: ALT (SGPT) 66 U/L (8-55); AST (SGOT) 62 U/L (5-34); Albumin 3.4 g/dL (3.4-4.8); Alkaline Phosphatase 79 U/L (40-110); Anion Gap 13 mmol/L (10-20); BUN (Urea Nitrogen) 36 mg/dL (8.4-25.7); Bilirubin, Total 1.8 mg/dL (0.2-1.2); Calc. Creatinine Clearance 114 mL/min (70-130); Calcium 9.3 mg/dL (7.8-10.44); Carbon Dioxide 35 mmol/L (23-31); Chloride 92 mmol/L (98-107); Globulin 2.2 g/dL (2.4-3.5); Glucose 106 mg/dL (80-115); Potassium 3.1 mmol/L (3.5-5.1); Protein, Total 5.6 g/dL (5.8-8.1); Sodium 137 mmol/L (136-145)
[2021-05-04] MEDS ORDERED: Potassium Bicarbonate/Cit Ac 20 MEQ TAB PER TUBE SCH (06:15)
[2021-05-04] MEDS: Furosemide 20 MG/2 ML VIAL SLOW IVP SCH ×3 (06:17→23:42)
[2021-05-04] MEDS ORDERED: Spironolactone 25 MG TAB PO SCH ×3 (08:00→13:00)
[2021-05-04] MEDS: Apixaban 5 MG TAB PO SCH ×2 (09:22→21:07)
[2021-05-04] MEDS: Polyethylene Glycol 3350 17 GM Packet PER TUBE SCH (09:22)
[2021-05-04] MEDS: Amiodarone 200 MG TAB PO SCH ×2 (09:47→21:06)
[2021-05-04] MEDS: Digoxin 0.125 MG TAB PER TUBE SCH (09:48)
[2021-05-04] MEDS ORDERED: Albumin 25% 25 GM/100 ML BOT IVPB SCH (18:30)
[2021-05-05 05:17] LABS: Eosinophils 1 % (0-10); Hemoglobin 11.3 g/dL (14.0-18.0); Lymphocytes 18 % (21-51); MDiff Complete? YES; Macrocytosis SLIGHT = 6-15 cells (100X) (0-5/hpf); Mean Corpuscular HGB CONC 31.9 g/dL (32.0-36.0); Mean Corpuscular Hemoglobin 32.7 pg (27.0-31.0); Mean Platelet Volume 9.7 fL (7.4-10.4); Monocytes 6 % (0-10); Neutrophil 74 % (42-75); Platelet Count 198 thou/uL (130-400); Platelet Morphology Comment Appears Adequate; RBC Distribution Width 14.7 % (11.5-14.5); Reactive Lymphocytes 1 % (0-10); Red Blood Cell (RBC) Count 3.46 mill/uL (4.70-6.10); White Blood Cell (WBC) Count 7.7 thou/uL (4.8-10.8)
[2021-05-05 05:19] LABS: ALT (SGPT) 48 U/L (8-55); AST (SGOT) 35 U/L (5-34); Albumin 3.6 g/dL (3.4-4.8); Alkaline Phosphatase 73 U/L (40-110); Anion Gap 14 mmol/L (10-20); BUN (Urea Nitrogen) 28 mg/dL (8.4-25.7); Bilirubin, Total 2.1 mg/dL (0.2-1.2); Calc. Creatinine Clearance 111 mL/min (70-130); Calcium 9.4 mg/dL (7.8-10.44); Carbon Dioxide 30 mmol/L (23-31); Chloride 95 mmol/L (98-107); Globulin 2.1 g/dL (2.4-3.5); Glucose 95 mg/dL (80-115); Potassium 3.1 mmol/L (3.5-5.1); Protein, Total 5.7 g/dL (5.8-8.1); Sodium 136 mmol/L (136-145)
[2021-05-05] MEDS ORDERED: Potassium Chloride 20 MEQ TAB PO SCH ×2 (05:30→14:00)
[2021-05-05] MEDS ORDERED: Spironolactone 25 MG TAB PO SCH (08:00)
[2021-05-05] MEDS ORDERED: Torsemide 20 MG TAB PO SCH (09:00)
[2021-05-05] MEDS: Spironolactone 100 MG TAB PO SCH (10:03)
[2021-05-05] MEDS: Digoxin 0.125 MG TAB PER TUBE SCH (10:03)
[2021-05-05] MEDS: Amiodarone 200 MG TAB PO SCH ×2 (10:03→22:19)
[2021-05-05] MEDS: Apixaban 5 MG TAB PO SCH ×2 (10:03→22:18)
[2021-05-05 10:13] LABS: Magnesium 1.6 mg/dL (1.6-2.6)
[2021-05-05] MEDS ORDERED: Magnesium 2 GM/50 ML 2 GM in Premix Bag 1 BAG IVPB SCH (11:45)
[2021-05-05 19:52] LABS: Digoxin 0.98 ng/mL (0.8-2.0)
[2021-05-06 03:25] LABS: Bacteria/HPF None Seen HPF (None Seen); Bilirubin Negative (Negative); Blood, Urine 2+ (Negative); Clarity Clear (Clear); Glucose, Urine (Dipstick) Normal (Negative); Ketone, Urine Trace mg/dL (Negative); Leukocyte Negative Leu/uL (Negative); Nitrite Negative (Negative); Protein, Urine (Dipstick) 100 mg/dL (Neg-Trace); RBC/HPF 0-3 HPF (0-3); Specific Gravity, Urine 1.017 (1.002-1.036); Squamous Epithelial 0-3 HPF (0-3); Urobilinogen 6 mg/dL (Less than 2)
[2021-05-06 05:26] LABS: Hemoglobin 13.5 g/dL (14.0-18.0); Hypochromia SLIGHT = 6-15 cells (100X) (0-5/hpf); Lymphocytes 18 % (21-51); MDiff Complete? YES; Macrocytosis SLIGHT = 6-15 cells (100X) (0-5/hpf); Mean Corpuscular HGB CONC 33.3 g/dL (32.0-36.0); Mean Corpuscular Hemoglobin 33.9 pg (27.0-31.0); Mean Platelet Volume 9.2 fL (7.4-10.4); Monocytes 8 % (0-10); Neutrophil 74 % (42-75); Platelet Count 225 thou/uL (130-400); Platelet Morphology Comment Appears Adequate; RBC Distribution Width 14.9 % (11.5-14.5); Red Blood Cell (RBC) Count 3.98 mill/uL (4.70-6.10); White Blood Cell (WBC) Count 12.5 thou/uL (4.8-10.8)
[2021-05-06 05:36] LABS: ALT (SGPT) 42 U/L (8-55); AST (SGOT) 27 U/L (5-34); Albumin 4.1 g/dL (3.4-4.8); Alkaline Phosphatase 94 U/L (40-110); Anion Gap 20 mmol/L (10-20); BUN (Urea Nitrogen) 24 mg/dL (8.4-25.7); Calc. Creatinine Clearance 97 mL/min (70-130); Carbon Dioxide 25 mmol/L (23-31); Chloride 98 mmol/L (98-107); Digoxin 0.77 ng/mL (0.8-2.0); Globulin 2.6 g/dL (2.4-3.5); Glucose 122 mg/dL (80-115); Potassium 3.5 mmol/L (3.5-5.1); Protein, Total 6.7 g/dL (5.8-8.1); Sodium 139 mmol/L (136-145)
[2021-05-06] MEDS ORDERED: Furosemide 40 MG/4 ML VIAL SLOW IVP SCH ×2 (06:00→16:30)
[2021-05-06] MEDS ORDERED: Potassium Chloride 20 MEQ TAB PO SCH (06:30)
[2021-05-06] MEDS ORDERED: hydrALAZINE 20 MG/ML VIAL SLOW IVP PRN (08:24)
[2021-05-06] MEDS: Amiodarone 200 MG TAB PO SCH ×2 (08:51→20:02)
[2021-05-06] MEDS: Digoxin 0.125 MG TAB PER TUBE SCH (08:51)
[2021-05-06] MEDS: Spironolactone 100 MG TAB PO SCH (08:51)
[2021-05-06] MEDS: Amlodipine 5 MG TAB PO SCH ×2 (08:51→20:02)
[2021-05-06] MEDS: Torsemide 20 MG TAB PO SCH ×2 (08:51→21:13)
[2021-05-06] MEDS: Apixaban 5 MG TAB PO SCH ×2 (08:51→20:02)
[2021-05-06] MEDS ORDERED: Metoprolol Tartrate 25 MG TAB PO SCH (11:30)
[2021-05-06] MEDS ORDERED: Metoprolol Tartrate 50 MG TAB PO SCH (11:45)
[2021-05-06 11:56] LABS: SARS-CoV-2 NAA Rapid Test Not Detected (NotDetected)
[2021-05-06 15:14] LABS: Actual Bicarbonate (HCO3a) 29.6 mEq/L (22-28); Base Excess (BEa) 6.4 mEq/L (-2.0 to +3.0); CO2 Tension 37.7 mmHg (35.0-45.0); Calcium, Ionized (arterial) 1.16 mmol/L (1.12-1.30); Carboxyhemoglobin (COHb) 0.7 gm% (0.0-3.0); Hemoglobin (Hb) 13.7 g/dL (14.0-18.0); Potassium - ABG Lab 3.82 mmol/L (3.70-5.30); pH, Arterial 7.51 (7.35-7.45)
[2021-05-06 15:16] LABS: O2 Tension (PaO2), arterial 57.3 mmHg (> 80.0)
[2021-05-06 15:17] LABS: ALV-art Gradient 608.575 mmHg (0-20); Puncture Site RRA
[2021-05-06] MEDS: Acetaminophen 325 MG TAB PER TUBE PRN (16:39)
[2021-05-06] MEDS: Clindamycin/D5W 600 MG in Premix Bag 1 BAG IVPB SCH (17:55)
[2021-05-06] MEDS ORDERED: Lidocaine 1% w/Epinephrine 1:100K 20 ML VIAL ONE (18:25)
[2021-05-06] MEDS: Lorazepam 2 MG/ML VIAL SLOW IVP SCH ×2 (19:43→20:03)
[2021-05-06] MEDS: Metoprolol Tartrate 50 MG TAB PO SCH (20:02)
[2021-05-06 20:16] LABS: Pleural Fluid, Protein 1.3 g/dL
[2021-05-06 20:19] LABS: RBC Count-Automated (BF) 480 /cu.mm; WBC/Nucleated-Auto (BF) 98 uL
[2021-05-06 20:47] LABS: BF Color Yellow; Body Fluid Source Thoracentesis Fluid; Clarity Clear (Clear); Tube # EDTA
[2021-05-06 20:49] LABS: BF Segmented Neutrophils 39 %; Cell Count Non Hematic 42 %; Lymphocytes 19 %
[2021-05-06 23:01] LABS: CKMB 4.7 ng/mL (0-6.6)
[2021-05-07] MEDS: Clindamycin/D5W 600 MG in Premix Bag 1 BAG IVPB SCH ×3 (01:47→18:52)
[2021-05-07 04:19] LABS: ALT (SGPT) 34 U/L (8-55); AST (SGOT) 23 U/L (5-34); Alkaline Phosphatase 92 U/L (40-110); Anion Gap 15 mmol/L (10-20); BUN (Urea Nitrogen) 22 mg/dL (8.4-25.7); Bilirubin, Total 1.6 mg/dL (0.2-1.2); Calc. Creatinine Clearance 100 mL/min (70-130); Carbon Dioxide 27 mmol/L (23-31); Chloride 100 mmol/L (98-107); Globulin 2.9 g/dL (2.4-3.5); Glucose 108 mg/dL (80-115); Protein, Total 6.9 g/dL (5.8-8.1); Sodium 138 mmol/L (136-145)
[2021-05-07 04:35] LABS: Band 1 % (5-11); Hemoglobin 13.9 g/dL (14.0-18.0); Lymphocytes 13 % (21-51); MDiff Complete? YES; Macrocytosis MODERATE=16-30 cells (100X) (0-5/hpf); Mean Corpuscular HGB CONC 30.7 g/dL (32.0-36.0); Mean Corpuscular Hemoglobin 32.6 pg (27.0-31.0); Mean Platelet Volume 9.7 fL (7.4-10.4); Monocytes 11 % (0-10); Neutrophil 73 % (42-75); Platelet Count 196 thou/uL (130-400); Platelet Morphology Comment Appears Adequate; Reactive Lymphocytes 2 % (0-10); Red Blood Cell (RBC) Count 4.25 mill/uL (4.70-6.10); White Blood Cell (WBC) Count 13.4 thou/uL (4.8-10.8)
[2021-05-07] MEDS: Torsemide 20 MG TAB PO SCH ×2 (08:50→20:24)
[2021-05-07] MEDS: Metoprolol Tartrate 50 MG TAB PO SCH ×2 (08:50→22:08)
[2021-05-07] MEDS: Digoxin 0.125 MG TAB PO SCH (08:50)
[2021-05-07] MEDS: Amiodarone 200 MG TAB PO SCH (08:51)
[2021-05-07] MEDS: Amlodipine 5 MG TAB PO SCH ×2 (08:51→20:24)
[2021-05-07] MEDS: Spironolactone 100 MG TAB PO SCH (08:51)
[2021-05-07] MEDS: Apixaban 5 MG TAB PO SCH ×2 (08:51→20:24)
[2021-05-07] MEDS ORDERED: Digoxin 0.5 MG/2 ML AMP SLOW IVP SCH (09:00)
[2021-05-07] MEDS ORDERED: Thiamine 100 MG TAB PO SCH (11:15)
[2021-05-08] MEDS: Clindamycin/D5W 600 MG in Premix Bag 1 BAG IVPB SCH ×2 (03:21→11:27)
[2021-05-08 04:28] LABS: Band 1 % (5-11); Hemoglobin 13.1 g/dL (14.0-18.0); Hypochromia SLIGHT = 6-15 cells (100X) (0-5/hpf); Lymphocytes 5 % (21-51); MDiff Complete? YES; Macrocytosis SLIGHT = 6-15 cells (100X) (0-5/hpf); Mean Corpuscular HGB CONC 31.5 g/dL (32.0-36.0); Mean Corpuscular Hemoglobin 32.7 pg (27.0-31.0); Mean Platelet Volume 9.6 fL (7.4-10.4); Monocytes 15 % (0-10); Neutrophil 79 % (42-75); Platelet Count 216 thou/uL (130-400); Platelet Morphology Comment Appears Adequate; RBC Distribution Width 15.1 % (11.5-14.5); Red Blood Cell (RBC) Count 3.99 mill/uL (4.70-6.10); White Blood Cell (WBC) Count 7.2 thou/uL (4.8-10.8)
[2021-05-08 04:42] LABS: Digoxin 1.25 ng/mL (0.8-2.0)
[2021-05-08 04:44] LABS: ALT (SGPT) 35 U/L (8-55); AST (SGOT) 26 U/L (5-34); Albumin 3.7 g/dL (3.4-4.8); Alkaline Phosphatase 86 U/L (40-110); Anion Gap 16 mmol/L (10-20); BUN (Urea Nitrogen) 23 mg/dL (8.4-25.7); Bilirubin, Total 1.5 mg/dL (0.2-1.2); Calc. Creatinine Clearance 101 mL/min (70-130); Calcium 9.7 mg/dL (7.8-10.44); Carbon Dioxide 29 mmol/L (23-31); Chloride 99 mmol/L (98-107); Globulin 2.7 g/dL (2.4-3.5); Glucose 97 mg/dL (80-115); Potassium 3.3 mmol/L (3.5-5.1); Protein, Total 6.4 g/dL (5.8-8.1); Sodium 141 mmol/L (136-145)
[2021-05-08] MEDS: Acetaminophen 325 MG TAB PER TUBE PRN (05:31)
[2021-05-08] MEDS ORDERED: Potassium Chloride 20 MEQ TAB PO SCH (07:00)
[2021-05-08] MEDS: Metoprolol Tartrate 50 MG TAB PO SCH ×2 (08:23→22:54)
[2021-05-08] MEDS: Apixaban 5 MG TAB PO SCH ×2 (08:23→22:53)
[2021-05-08] MEDS: Digoxin 0.125 MG TAB PO SCH (08:23)
[2021-05-08] MEDS: Amlodipine 5 MG TAB PO SCH (08:23)
[2021-05-08] MEDS: Thiamine 100 MG TAB PO SCH (08:24)
[2021-05-08] MEDS: Torsemide 20 MG TAB PO SCH ×2 (08:25→22:54)
[2021-05-08] MEDS: Spironolactone 100 MG TAB PO SCH (08:25)
[2021-05-09 04:22] LABS: ALT (SGPT) 34 U/L (8-55); AST (SGOT) 24 U/L (5-34); Albumin 3.5 g/dL (3.4-4.8); Alkaline Phosphatase 82 U/L (40-110); Anion Gap 16 mmol/L (10-20); BUN (Urea Nitrogen) 24 mg/dL (8.4-25.7); Bilirubin, Total 1.2 mg/dL (0.2-1.2); Calc. Creatinine Clearance 90 mL/min (70-130); Calcium 9.5 mg/dL (7.8-10.44); Carbon Dioxide 25 mmol/L (23-31); Chloride 101 mmol/L (98-107); Globulin 3.1 g/dL (2.4-3.5); Glucose 103 mg/dL (80-115); Potassium 3.7 mmol/L (3.5-5.1); Protein, Total 6.6 g/dL (5.8-8.1); Sodium 138 mmol/L (136-145)
[2021-05-09 04:31] LABS: Band 3 % (5-11); Eosinophils 2 % (0-10); Hemoglobin 13.4 g/dL (14.0-18.0); Lymphocytes 12 % (21-51); MDiff Complete? YES; Macrocytosis MODERATE=16-30 cells (100X) (0-5/hpf); Mean Corpuscular HGB CONC 31.7 g/dL (32.0-36.0); Mean Platelet Volume 10.8 fL (7.4-10.4); Monocytes 4 % (0-10); Neutrophil 79 % (42-75); Platelet Count 186 thou/uL (130-400); Platelet Morphology Comment Appears Adequate; RBC Distribution Width 15.2 % (11.5-14.5); Red Blood Cell (RBC) Count 3.95 mill/uL (4.70-6.10); White Blood Cell (WBC) Count 6.7 thou/uL (4.8-10.8)
[2021-05-09] MEDS: Apixaban 5 MG TAB PO SCH ×2 (10:32→20:54)
[2021-05-09] MEDS: Digoxin 0.125 MG TAB PO SCH (10:33)
[2021-05-09] MEDS: Thiamine 100 MG TAB PO SCH (10:34)
[2021-05-09] MEDS: Spironolactone 100 MG TAB PO SCH (10:34)
[2021-05-09] MEDS: Metoprolol Tartrate 50 MG TAB PO SCH (10:34)
[2021-05-09] MEDS: Torsemide 20 MG TAB PO SCH (10:34)
[2021-05-09 16:37] LABS: Creatinine, Urine 44.78 mg/dL (63-166)
[2021-05-09] MEDS: Acetaminophen 325 MG TAB PER TUBE PRN (20:53)
[2021-05-09] MEDS: Metoprolol Tartrate 25 MG TAB PO SCH (20:56)
[2021-05-10 04:41] LABS: Mean Corpuscular HGB CONC 32.3 g/dL (32.0-36.0); Mean Corpuscular Hemoglobin 33.4 pg (27.0-31.0); Mean Platelet Volume 9.9 fL (7.4-10.4); Platelet Count 264 thou/uL (130-400); RBC Distribution Width 14.9 % (11.5-14.5); White Blood Cell (WBC) Count 7.8 thou/uL (4.8-10.8)
[2021-05-10 05:28] LABS: ALT (SGPT) 32 U/L (8-55); AST (SGOT) 24 U/L (5-34); Albumin 3.6 g/dL (3.4-4.8); Alkaline Phosphatase 82 U/L (40-110); Anion Gap 17 mmol/L (10-20); BUN (Urea Nitrogen) 28 mg/dL (8.4-25.7); Bilirubin, Total 1.1 mg/dL (0.2-1.2); Calc. Creatinine Clearance 80 mL/min (70-130); Calcium 9.5 mg/dL (7.8-10.44); Carbon Dioxide 28 mmol/L (23-31); Chloride 102 mmol/L (98-107); Glucose 115 mg/dL (80-115); Potassium 3.5 mmol/L (3.5-5.1); Protein, Total 6.6 g/dL (5.8-8.1); Sodium 143 mmol/L (136-145)
[2021-05-10 06:02] LABS: Band 7 % (5-11); Eosinophils 2 % (0-10); Lymphocytes 11 % (21-51); MDiff Complete? YES; Monocytes 4 % (0-10); Neutrophil 76 % (42-75)
[2021-05-10] MEDS ORDERED: Potassium Chloride 20 MEQ TAB PO SCH (06:30)
[2021-05-10] MEDS ORDERED: Torsemide 20 MG TAB PO SCH (09:00)
[2021-05-10] MEDS: Metoprolol Tartrate 25 MG TAB PO SCH ×2 (09:20→20:39)
[2021-05-10] MEDS: Thiamine 100 MG TAB PO SCH (09:21)
[2021-05-10] MEDS: Digoxin 0.125 MG TAB PO SCH (09:22)
[2021-05-10] MEDS: Apixaban 5 MG TAB PO SCH ×2 (09:23→20:39)
[2021-05-10] MEDS: Spironolactone 100 MG TAB PO SCH (09:23)
[2021-05-10] MEDS ORDERED: Cefdinir 300 MG CAP PO SCH (19:15)
[2021-05-11 07:50] LABS: Albumin 4.2 g/dL (3.4-4.8); Anion Gap 16 mmol/L (10-20); BUN (Urea Nitrogen) 31 mg/dL (8.4-25.7); BUN/Creatinine Ratio 26.72; Calc. Creatinine Clearance 63 mL/min (70-130); Carbon Dioxide 28 mmol/L (23-31); Chloride 98 mmol/L (98-107); Glucose 95 mg/dL (80-115); Phosphorus 3.7 mg/dL (2.3-4.7); Potassium 3.9 mmol/L (3.5-5.1); Sodium 138 mmol/L (136-145)
[2021-05-11] MEDS ORDERED: Spironolactone 100 MG TAB PO SCH (09:00)
[2021-05-11] MEDS: Digoxin 0.125 MG TAB PO SCH (09:16)
[2021-05-11] MEDS: Thiamine 100 MG TAB PO SCH (09:17)
[2021-05-11] MEDS: Apixaban 5 MG TAB PO SCH ×2 (09:17→20:49)
[2021-05-11] MEDS: Metoprolol Tartrate 25 MG TAB PO SCH ×2 (09:17→20:49)
[2021-05-11] MEDS: Torsemide 20 MG TAB PO SCH (11:37)
[2021-05-12 07:53] LABS: Albumin 3.7 g/dL (3.4-4.8)
[2021-05-12 07:55] LABS: Calcium 10.2 mg/dL (7.8-10.44); Chloride 98 mmol/L (98-107); Sodium 140 mmol/L (136-145)
[2021-05-12 07:56] LABS: Glucose 99 mg/dL (80-115)
[2021-05-12 07:57] LABS: Anion Gap 16 mmol/L (10-20); Carbon Dioxide 30 mmol/L (23-31)
[2021-05-12 07:59] LABS: Calc. Creatinine Clearance 72 mL/min (70-130); Phosphorus 3.7 mg/dL (2.3-4.7)
[2021-05-12 08:00] LABS: BUN (Urea Nitrogen) 38 mg/dL (8.4-25.7); BUN/Creatinine Ratio 36.19
[2021-05-12] MEDS: Spironolactone 100 MG TAB PO SCH (08:31)
[2021-05-12] MEDS: Digoxin 0.125 MG TAB PO SCH (08:31)
[2021-05-12] MEDS: Apixaban 5 MG TAB PO SCH ×2 (08:31→20:25)
[2021-05-12] MEDS: Thiamine 100 MG TAB PO SCH (08:31)
[2021-05-12] MEDS: Torsemide 20 MG TAB PO SCH (08:32)
[2021-05-12] MEDS: Metoprolol Tartrate 25 MG TAB PO SCH ×2 (08:32→20:25)
[2021-05-13 07:03] LABS: Hemoglobin 14.5 g/dL (14.0-18.0); Mean Corpuscular HGB CONC 32.1 g/dL (32.0-36.0); Mean Corpuscular Hemoglobin 32.7 pg (27.0-31.0); Mean Platelet Volume 9.7 fL (7.4-10.4); Platelet Count 312 thou/uL (130-400); RBC Distribution Width 14.5 % (11.5-14.5); Red Blood Cell (RBC) Count 4.45 mill/uL (4.70-6.10); White Blood Cell (WBC) Count 8.2 thou/uL (4.8-10.8)
[2021-05-13 07:04] LABS: Albumin 3.7 g/dL (3.4-4.8); Anion Gap 14 mmol/L (10-20); BUN (Urea Nitrogen) 51 mg/dL (8.4-25.7); BUN/Creatinine Ratio 47.66; Calc. Creatinine Clearance 71 mL/min (70-130); Calcium 10.2 mg/dL (7.8-10.44); Carbon Dioxide 30 mmol/L (23-31); Chloride 96 mmol/L (98-107); Glucose 104 mg/dL (80-115); Phosphorus 3.5 mg/dL (2.3-4.7); Potassium 4.3 mmol/L (3.5-5.1); Sodium 136 mmol/L (136-145)
[2021-05-13] MEDS ORDERED: Sodium Chloride 0.9% 1,000 ML IV SCH (08:45)
[2021-05-13] MEDS: Digoxin 0.125 MG TAB PO SCH (09:43)
[2021-05-13] MEDS: Thiamine 100 MG TAB PO SCH (09:46)
[2021-05-13] MEDS: Apixaban 5 MG TAB PO SCH ×2 (09:46→22:25)
[2021-05-13] MEDS: Metoprolol Tartrate 25 MG TAB PO SCH ×2 (09:46→22:25)
[2021-05-13] MEDS: Spironolactone 100 MG TAB PO SCH (09:46)
[2021-05-13] MEDS: Torsemide 20 MG TAB PO SCH (09:46)
[2021-05-13] MEDS: Atorvastatin Calcium 10 MG TAB PO SCH (22:25)
[2021-05-14 06:53] LABS: Albumin 3.8 g/dL (3.4-4.8); Anion Gap 15 mmol/L (10-20); BUN (Urea Nitrogen) 54 mg/dL (8.4-25.7); BUN/Creatinine Ratio 52.43; Calc. Creatinine Clearance 77 mL/min (70-130); Calcium 10.7 mg/dL (7.8-10.44); Carbon Dioxide 30 mmol/L (23-31); Chloride 100 mmol/L (98-107); Glucose 113 mg/dL (80-115); Phosphorus 4.9 mg/dL (2.3-4.7); Potassium 4.5 mmol/L (3.5-5.1); Sodium 140 mmol/L (136-145)
[2021-05-14 07:50] LABS: SARS-CoV-2 PCR by NAA Not Detected (NotDetected)
[2021-05-14] MEDS: Metoprolol Tartrate 25 MG TAB PO SCH ×4 (08:37→20:23)
[2021-05-14] MEDS: Apixaban 5 MG TAB PO SCH ×2 (08:37→20:24)
[2021-05-14] MEDS: Thiamine 100 MG TAB PO SCH (08:37)
[2021-05-14] MEDS: Spironolactone 100 MG TAB PO SCH ×2 (08:37→08:46)
[2021-05-14] MEDS: Digoxin 0.125 MG TAB PO SCH (08:45)
[2021-05-14] MEDS: Torsemide 20 MG TAB PO SCH (08:45)
[2021-05-14] MEDS ORDERED: Sodium Chloride 0.9% 1,000 ML IV SCH (09:00)
[2021-05-14 12:37] VITALS: BMI 24.0
[2021-05-14 19:17] VITALS: TEMP 97.6
[2021-05-14 20:23] VITALS: BP 108/66
[2021-05-14] MEDS: Atorvastatin Calcium 10 MG TAB PO SCH (20:23)
== END 2021-05-14 20:55 | DRG 870 ==
LOC: EDBD 13:07 → ERS 13:07 → CCU 13:52 → 2SE 05-04 00:06 → IMCU/EMU 05-06 19:08 → 2NO 05-09 15:10 → T4-B 05-10 21:04
PROVIDERS: ADMIT Internal Medicine; ATTEND Internal Medicine
PROC: 5A1955Z Respiratory Ventilation, Greater than 96 Consecutive Hours (ICD-10-PCS; principal; 2021-04-24)
PROC: 0D9670Z Drainage of Stomach with Drainage Device, Via Natural or Artificial Opening (ICD-10-PCS; 2021-04-24)
PROC: 3E033XZ Introduction of Vasopressor into Peripheral Vein, Percutaneous Approach (ICD-10-PCS; 2021-04-24)
PROC: 06HY33Z Insertion of Infusion Device into Lower Vein, Percutaneous Approach (ICD-10-PCS; 2021-04-24)
PROC: 0B9J8ZX Drainage of Left Lower Lung Lobe, Via Natural or Artificial Opening Endoscopic, Diagnostic (ICD-10-PCS; 2021-04-24)
PROC: 04HY32Z Insertion of Monitoring Device into Lower Artery, Percutaneous Approach (ICD-10-PCS; 2021-04-24)
PROC: 0BH17EZ Insertion of Endotracheal Airway into Trachea, Via Natural or Artificial Opening (ICD-10-PCS; 2021-04-24)
PROC: 0D9670Z Drainage of Stomach with Drainage Device, Via Natural or Artificial Opening (ICD-10-PCS; 2021-04-24)
PROC: 0W9B3ZX Drainage of Left Pleural Cavity, Percutaneous Approach, Diagnostic (ICD-10-PCS; 2021-05-06)
DX: A41.3 Sepsis due to Hemophilus influenzae (principal); R65.21 Severe sepsis with septic shock; J96.21 Acute and chronic respiratory failure with hypoxia; J96.22 Acute and chronic respiratory failure with hypercapnia; I50.43 Acute on chronic combined systolic (congestive) and diastolic (congestive) heart failure; I21.A1 Myocardial infarction type 2; R57.0 Cardiogenic shock; G92 Toxic encephalopathy; N17.0 Acute kidney failure with tubular necrosis; I48.20 Chronic atrial fibrillation, unspecified; N39.0 Urinary tract infection, site not specified; L03.116 Cellulitis of left lower limb; L03.115 Cellulitis of right lower limb; E22.2 Syndrome of inappropriate secretion of antidiuretic hormone; I13.0 Hypertensive heart and chronic kidney disease with heart failure and stage 1 through stage 4 chronic kidney disease, or unspecified chronic kidney disease; G82.20 Paraplegia, unspecified; I42.8 Other cardiomyopathies; J90 Pleural effusion, not elsewhere classified; I47.2 Ventricular tachycardia; Z20.822 Contact with and (suspected) exposure to COVID-19; Z96.642 Presence of left artificial hip joint; I25.10 Atherosclerotic heart disease of native coronary artery without angina pectoris; F41.9 Anxiety disorder, unspecified; F32.9 Major depressive disorder, single episode, unspecified; F17.210 Nicotine dependence, cigarettes, uncomplicated; F10.10 Alcohol abuse, uncomplicated; F15.10 Other stimulant abuse, uncomplicated; E16.2 Hypoglycemia, unspecified; E78.00 Pure hypercholesterolemia, unspecified; C61 Malignant neoplasm of prostate; E87.6 Hypokalemia; E66.9 Obesity, unspecified; N18.9 Chronic kidney disease, unspecified; D63.1 Anemia in chronic kidney disease; I87.2 Venous insufficiency (chronic) (peripheral); R80.9 Proteinuria, unspecified; I08.1 Rheumatic disorders of both mitral and tricuspid valves; M06.9 Rheumatoid arthritis, unspecified; I45.81 Long QT syndrome; E83.42 Hypomagnesemia; G93.89 Other specified disorders of brain; Z79.899 Other long term (current) drug therapy; Z99.3 Dependence on wheelchair; Z98.890 Other specified postprocedural states; Z91.14 Patient's other noncompliance with medication regimen; Z68.24 Body mass index [BMI] 24.0-24.9, adult; Z78.1 Physical restraint status; Z88.0 Allergy status to penicillin; Z80.1 Family history of malignant neoplasm of trachea, bronchus and lung
CPT/HCPCS: 0240U; 31500; 36415; 36416; 36556; 36600; 51702; 70450; 71045; 71275; 74018; 74174; 76770; 80053; 80069; 80162; 80202; 80306; 80307; 81001; 81003; 81015; 82533; 82553; 82570; 82805; 82945; 83605; 83615; 83735; 83880; 83930; 83935; 84100; 84145; 84156; 84157; 84300; 84443; 84484; 84540; 85007; 85025; 85027; 85060; 85379; 85610; 85730; 86850; 86900; 86901; 87040; 87070; 87077; 87086; 87149; 87205; 88112; 89051; 93005; 93010; 93306; 94002; 94003; 95712; 95819; 95957; 96365; 96366; 96367; 96368; 96375; 99292; C9113; J0171; J0282; J0360; J0692; J1120; J1160; J1644; J1720; J1940; J2001; J2060; J2704; J3010; J3370; J3475; J3480; J3490; J7042; J7070; P9047; Q9967; U0002; U0003; U0005

== ENCOUNTER 2021-06-18 06:48 | Emergency (ER) | payer OTHER ==
[2021-06-18 07:34] LABS: #Basophils 0.1 thou/uL (0.0-0.2); #Lymphocytes 2.4 thou/uL (1.20-3.40); #Monocytes 0.8 thou/uL (0.11-0.59); #Neutrophils 7.9 thou/uL (1.40-6.50); %Basophils 0.8 % (0.0-1.0); %Eosinophils 0.2 % (0.0-10.0); %Lymphocytes 21.6 % (21.0-51.0); %Monocytes 6.7 % (0.0-10.0); %Neutrophils 70.7 % (42.0-75.0); Hemoglobin 12.3 g/dL (14.0-18.0); Mean Corpuscular HGB CONC 31.3 g/dL (32.0-36.0); Mean Corpuscular Hemoglobin 31.6 pg (27.0-31.0); Mean Platelet Volume 6.2 fL (7.4-10.4); Platelet Count 471 thou/uL (130-400); RBC Distribution Width 15.1 % (11.5-14.5); Red Blood Cell (RBC) Count 3.88 mill/uL (4.70-6.10); White Blood Cell (WBC) Count 11.2 thou/uL (4.8-10.8)
[2021-06-18 07:56] LABS: ALT (SGPT) 11 U/L (8-55); AST (SGOT) 15 U/L (5-34); Albumin 3.1 g/dL (3.4-4.8); Alkaline Phosphatase 104 U/L (40-110); Anion Gap 15 mmol/L (10-20); BUN (Urea Nitrogen) 4 mg/dL (8.4-25.7); Bilirubin, Total 0.6 mg/dL (0.2-1.2); Calc. Creatinine Clearance 0 mL/min (70-130); Calcium 8.8 mg/dL (7.8-10.44); Carbon Dioxide 23 mmol/L (23-31); Chloride 105 mmol/L (98-107); Globulin 2.9 g/dL (2.4-3.5); Glucose 101 mg/dL (80-115); Potassium 3.7 mmol/L (3.5-5.1); Sodium 139 mmol/L (136-145)
[2021-06-18] MEDS ORDERED: Furosemide 40 MG/4 ML VIAL ONE (08:34)
[2021-06-18] MEDS ORDERED: Nitroglycerin 2% Ointment 1 INCH/1 GM Packet ONE (08:34)
[2021-06-18] MEDS ORDERED: Cefepime 2 GM VIAL ONE (10:00)
[2021-06-18] MEDS ORDERED: Vancomycin 1 GM/200 ML BAG ONE (10:00)
[2021-06-18] MEDS ORDERED: Vancomycin 1.5 GRAM/300 ML BAG 1.5 GM in Premix Bag 1 BAG IVPB SCH (10:00)
[2021-06-18 10:59] LABS: Bilirubin Negative (Negative); Blood, Urine Negative (Negative); Clarity Clear (Clear); Glucose, Urine (Dipstick) Normal (Negative); Ketone, Urine Negative (Negative); Leukocyte Negative Leu/uL (Negative); Nitrite Negative (Negative); Protein, Urine (Dipstick) Negative (Neg-Trace); Specific Gravity, Urine 1.005 (1.002-1.036); Urobilinogen Normal mg/dL (Less than 2); pH, Urine 6.5 (5.0-9.0)
[2021-06-18 11:11] LABS: Lactic Acid 2.5 mmol/L (0.5-2.2)
[2021-06-18 12:02] LABS: SARS-CoV-2 NAA Rapid Test Not Detected (NotDetected)
[2021-06-18] MEDS ORDERED: Nadolol 40 MG TAB PO SCH (21:00)
== END 2021-06-18 14:23 | disposition short-term general hospital (02) ==
LOC: ERS 06:48
DX: A41.9 Sepsis, unspecified organism (principal); I11.0 Hypertensive heart disease with heart failure; I50.9 Heart failure, unspecified; Z20.822 Contact with and (suspected) exposure to COVID-19; I48.91 Unspecified atrial fibrillation; I25.10 Atherosclerotic heart disease of native coronary artery without angina pectoris; F17.210 Nicotine dependence, cigarettes, uncomplicated; J44.9 Chronic obstructive pulmonary disease, unspecified; Z79.01 Long term (current) use of anticoagulants; Z79.899 Other long term (current) drug therapy
CPT/HCPCS: 0240U; 36415; 51702; 71045; 80053; 81003; 83605; 83880; 84484; 85025; 87040; 87086; 93005; 96365; 96366; 96367; 96375; J0692; J1940; J3370

== ENCOUNTER 2022-03-18 18:00 | Outpatient (CLI) | payer OTHER | END 2022-03-18 18:01 | disposition home or self-care (01) | LOC: SLEEPLAB 18:00 | PROVIDERS: ATTEND Internal Medicine Critical Care Medicine | DX: G47.33 Obstructive sleep apnea (adult) (pediatric) (principal); I50.9 Heart failure, unspecified; J44.9 Chronic obstructive pulmonary disease, unspecified; I48.91 Unspecified atrial fibrillation; G47.00 Insomnia, unspecified; R06.83 Snoring; G82.20 Paraplegia, unspecified; R09.02 Hypoxemia | CPT/HCPCS: 95800 ==

== ENCOUNTER 2022-05-19 01:15 | Inpatient (IN) | payer OTHER ==
[2022-05-19] MEDS ORDERED: Propofol 1,000 MG/100 ML VIAL IV ONE (01:36)
[2022-05-19 01:41] LABS: Actual Bicarbonate (HCO3a) 36.8 mEq/L (22-28); Analyzer IN Cardio ER; CO2 Tension 58.8 mmHg (35.0-45.0); Calcium, Ionized (arterial) 1.24 mmol/L (1.12-1.30); Carboxyhemoglobin (COHb) 0.6 gm% (0.0-3.0); Hemoglobin (Hb) 13.3 g/dL (14.0-18.0); O2 Tension (PaO2), arterial 60.8 mmHg (> 80.0); pH, Arterial 7.41 (7.35-7.45)
[2022-05-19 01:57] LABS: Puncture Site LRA
[2022-05-19 02:00] LABS: #Lymphocytes 0.6 thou/uL (1.20-3.40); #Monocytes 0.5 thou/uL (0.11-0.59); #Neutrophils 13.7 thou/uL (1.40-6.50); %Basophils 0.1 % (0.0-1.0); %Eosinophils 0.2 % (0.0-10.0); %Lymphocytes 4.3 % (21.0-51.0); %Monocytes 3.5 % (0.0-10.0); Hemoglobin 13.6 g/dL (14.0-18.0); Mean Corpuscular HGB CONC 32.4 g/dL (32.0-36.0); Mean Corpuscular Hemoglobin 33.5 pg (27.0-31.0); Mean Platelet Volume 8.7 fL (7.4-10.4); Platelet Count 232 thou/uL (130-400); RBC Distribution Width 14.8 % (11.5-14.5); Red Blood Cell (RBC) Count 4.07 mill/uL (4.70-6.10); White Blood Cell (WBC) Count 14.9 thou/uL (4.8-10.8)
[2022-05-19 02:19] LABS: ALT (SGPT) 98 U/L (8-55); AST (SGOT) 49 U/L (5-34); Albumin 3.2 g/dL (3.4-4.8); Alkaline Phosphatase 87 U/L (40-110); Anion Gap 15 mmol/L (10-20); BUN (Urea Nitrogen) 33 mg/dL (8.4-25.7); Bilirubin, Total 0.5 mg/dL (0.2-1.2); Calc. Creatinine Clearance 0 mL/min (70-130); Calcium 9.7 mg/dL (7.8-10.44); Carbon Dioxide 33 mmol/L (23-31); Chloride 100 mmol/L (98-107); Estimated GFR 76; Globulin 2.5 g/dL (2.4-3.5); Glucose 276 mg/dL (80-115); Potassium 3.9 mmol/L (3.5-5.1); Protein, Total 5.7 g/dL (5.8-8.1); Sodium 144 mmol/L (136-145)
[2022-05-19 02:41] LABS: SARS-CoV-2 NAA Rapid Test Not Detected (NotDetected)
[2022-05-19 04:59] LABS: Lactic Acid 3.1 mmol/L (0.5-2.2)
[2022-05-19] MEDS ORDERED: Vancomycin 1 GM/200 ML BAG ONE (05:35)
[2022-05-19] MEDS ORDERED: Aztreonam 1 GM in Sodium Chloride 0.9% 100 ML IVPB SCH (06:15)
[2022-05-19] MEDS ORDERED: Ondansetron PF 4 MG/2 ML Vial IVP PRN (06:39)
[2022-05-19] MEDS ORDERED: Acetaminophen 325 MG TAB PO PRN (06:39)
[2022-05-19] MEDS ORDERED: VANCOMYCIN IVPB PRN (06:43)
[2022-05-19] MEDS ORDERED: Fentanyl CADD 100 ML IV SCH (06:45)
[2022-05-19] MEDS ORDERED: Fentanyl BOLUS 250 ML IVPB PRN (06:45)
[2022-05-19] MEDS ORDERED: Midazolam HCl 2 mg/2 ml Vial SLOW IVP PRN (06:45)
[2022-05-19] MEDS ORDERED: DISCONTINUE PREVIOUS NARCOTIC PAIN MEDICATIONS AND BENZODIAZEPINES FS SCH (06:45)
[2022-05-19] MEDS ORDERED: Propofol BOLUS 1,000 MG/100 ML VIAL IV PRN (06:45)
[2022-05-19] MEDS ORDERED: Ventilator Sedation Protocol 1 EACH FS SCH (06:45)
[2022-05-19 08:01] LABS: Lactic Acid 2.6 mmol/L (0.5-2.2)
[2022-05-19] MEDS ORDERED: Iopamidol 370 76% 100 ML VIAL ONE (08:52)
[2022-05-19] MEDS ORDERED: Meropenem 1 GM in Sodium Chloride 0.9% 100 ML IVPB SCH ×2 (09:00→14:00)
[2022-05-19] MEDS ORDERED: Vancomycin 1 GM in Premix Bag 1 BAG IVPB SCH (09:00)
[2022-05-19] MEDS: methylPREDNISolone Sod Succ 40 MG VIAL IVP SCH ×2 (09:35→19:36)
[2022-05-19] MEDS: Apixaban 5 MG TAB PO SCH ×2 (09:40→20:54)
[2022-05-19] MEDS: Famotidine 40 MG/5 ML Oral Suspension PER TUBE SCH ×2 (09:41→20:54)
[2022-05-19] MEDS: Propofol 1,000 MG/100 ML VIAL IV PRN ×2 (12:24→17:26)
[2022-05-19] MEDS: Lactated Ringer's 1,000 ML IV SCH (14:20)
[2022-05-19] MEDS ORDERED: Calamine/Zinc Oxide 177 ML LOTION TP PRN (15:20)
[2022-05-19] MEDS: Nystatin Powder 15 GM BOT TOP SCH ×2 (16:16→20:54)
[2022-05-19] MEDS: Meropenem 1 GM in Sodium Chloride 0.9% 100 ML IVPB SCH (17:09)
[2022-05-20] MEDS: Meropenem 1 GM in Sodium Chloride 0.9% 100 ML IVPB SCH ×3 (01:19→16:53)
[2022-05-20] MEDS: Propofol 1,000 MG/100 ML VIAL IV PRN ×4 (01:21→19:33)
[2022-05-20 03:53] LABS: #Lymphocytes 0.6 thou/uL (1.20-3.40); #Monocytes 0.1 thou/uL (0.11-0.59); #Neutrophils 13.6 thou/uL (1.40-6.50); %Eosinophils 0.3 % (0.0-10.0); %Monocytes 0.8 % (0.0-10.0); %Neutrophils 94.9 % (42.0-75.0); Hemoglobin 12.2 g/dL (14.0-18.0); Mean Corpuscular HGB CONC 32.7 g/dL (32.0-36.0); Mean Corpuscular Hemoglobin 32.1 pg (27.0-31.0); Mean Corpuscular Volume 98.2 fL (78.0-98.0); Platelet Count 268 thou/uL (130-400); RBC Distribution Width 15.5 % (11.5-14.5); Red Blood Cell (RBC) Count 3.81 mill/uL (4.70-6.10); White Blood Cell (WBC) Count 14.3 thou/uL (4.8-10.8)
[2022-05-20 04:23] LABS: ALT (SGPT) 71 U/L (8-55); AST (SGOT) 27 U/L (5-34); Albumin 2.9 g/dL (3.4-4.8); Alkaline Phosphatase 72 U/L (40-110); Anion Gap 17 mmol/L (10-20); BUN (Urea Nitrogen) 27 mg/dL (8.4-25.7); Bilirubin, Total 0.5 mg/dL (0.2-1.2); Calc. Creatinine Clearance 114 mL/min (70-130); Calcium 9.4 mg/dL (7.8-10.44); Carbon Dioxide 30 mmol/L (23-31); Chloride 103 mmol/L (98-107); Estimated GFR 96; Globulin 2.6 g/dL (2.4-3.5); Glucose 226 mg/dL (80-115); Magnesium 2.1 mg/dL (1.6-2.6); Potassium 3.6 mmol/L (3.5-5.1); Protein, Total 5.5 g/dL (5.8-8.1); Sodium 146 mmol/L (136-145)
[2022-05-20 07:53] LABS: Actual Bicarbonate (HCO3a) 34.8 mEq/L (22-28); Base Excess (BEa) 13.3 mEq/L (-2.0 to +3.0); CO2 Tension 33.1 mmHg (35.0-45.0); Calcium, Ionized (arterial) 1.22 mmol/L (1.12-1.30); Hemoglobin (Hb) 12.6 g/dL (14.0-18.0); O2 Tension (PaO2), arterial 77.7 mmHg (> 80.0)
[2022-05-20] MEDS: Nystatin Powder 15 GM BOT TOP SCH ×3 (07:59→20:41)
[2022-05-20] MEDS ORDERED: Dextrose 50% Abboject 50 ML SYRINGE SLOW IVP PRN (08:01)
[2022-05-20] MEDS ORDERED: Dextrose 5% in Water 1,000 ML IV PRN (08:01)
[2022-05-20 08:06] LABS: ALV-art Gradient 201.775 mmHg (0-20); Puncture Site LRA; pH, Arterial 7.64 (7.35-7.45)
[2022-05-20] MEDS: Carvedilol 6.25 MG TAB PER TUBE SCH ×2 (08:08→15:47)
[2022-05-20] MEDS: Famotidine 40 MG/5 ML Oral Suspension PER TUBE SCH ×2 (08:09→20:31)
[2022-05-20] MEDS: Bacitracin 1 PK TOP SCH (08:09)
[2022-05-20] MEDS: Apixaban 5 MG TAB PO SCH ×2 (08:12→20:31)
[2022-05-20] MEDS: methylPREDNISolone Sod Succ 40 MG VIAL IVP SCH ×3 (08:13→20:40)
[2022-05-20] MEDS: Lactated Ringer's 1,000 ML IV SCH (09:16)
[2022-05-20] MEDS: NPH, Human Insulin Isophane 300 UNIT/3 ML VIAL SC SCH ×2 (09:35→20:40)
[2022-05-20] MEDS: VANCOMYCIN 2 GRAM/500 ML BAG 2 GM in Premix Bag 1 BAG IVPB SCH (09:41)
[2022-05-20] MEDS: Insulin Regular 300 UNITS/3 ML VIAL SC PRN ×3 (12:25→21:23)
[2022-05-20] MEDS: Morphine 2 MG/ML VIAL SLOW IVP PRN (16:00)
[2022-05-20] MEDS: Labetalol HCl 100 MG/20 ML VIAL SLOW IVP PRN (16:55)
[2022-05-20] MEDS ORDERED: Amiodarone 450 MG, Admixture Fee 1 EACH in Dextrose 5% in Water 250 ML IVPB SCH (18:30)
[2022-05-20] MEDS ORDERED: Amiodarone 150 MG, Admixture Fee 1 EACH in Dextrose 5% in Water 100 ML IVPB SCH (18:30)
[2022-05-20 21:12] LABS: ALT (SGPT) 56 U/L (8-55); AST (SGOT) 16 U/L (5-34); Albumin 2.9 g/dL (3.4-4.8); Alkaline Phosphatase 71 U/L (40-110); Bilirubin, Direct 0.2 mg/dL (0.1-0.3); Bilirubin, Total 0.5 mg/dL (0.2-1.2); Protein, Total 5.2 g/dL (5.8-8.1)
[2022-05-20 21:43] LABS: Anion Gap 13 mmol/L (10-20); BUN (Urea Nitrogen) 27 mg/dL (8.4-25.7); Calc. Creatinine Clearance 130 mL/min (70-130); Calcium 8.9 mg/dL (7.8-10.44); Carbon Dioxide 32 mmol/L (23-31); Chloride 104 mmol/L (98-107); Estimated GFR 100; Glucose 198 mg/dL (80-115); Magnesium 2.3 mg/dL (1.6-2.6); Potassium 3.3 mmol/L (3.5-5.1); Sodium 146 mmol/L (136-145)
[2022-05-21] MEDS: Propofol 1,000 MG/100 ML VIAL IV PRN ×5 (01:25→20:33)
[2022-05-21] MEDS: Meropenem 1 GM in Sodium Chloride 0.9% 100 ML IVPB SCH ×2 (01:41→08:37)
[2022-05-21] MEDS ORDERED: Electrolyte Replacement Protocol 1 EACH FS SCH (01:45)
[2022-05-21] MEDS: Potassium Chloride 20 MEQ in Premix Bag 1 BAG IVPB SCH ×2 (01:49→04:08)
[2022-05-21] MEDS: Insulin Regular 300 UNITS/3 ML VIAL SC PRN ×2 (01:59→17:57)
[2022-05-21] MEDS: hydrALAZINE 20 MG/ML VIAL SLOW IVP PRN ×2 (03:44→13:28)
[2022-05-21 04:47] LABS: ALT (SGPT) 55 U/L (8-55); AST (SGOT) 22 U/L (5-34); Alkaline Phosphatase 72 U/L (40-110); Anion Gap 13 mmol/L (10-20); BUN (Urea Nitrogen) 28 mg/dL (8.4-25.7); Bilirubin, Total 0.6 mg/dL (0.2-1.2); Calc. Creatinine Clearance 131 mL/min (70-130); Calcium 9.3 mg/dL (7.8-10.44); Carbon Dioxide 33 mmol/L (23-31); Chloride 103 mmol/L (98-107); Estimated GFR 100; Globulin 2.5 g/dL (2.4-3.5); Glucose 178 mg/dL (80-115); Magnesium 2.3 mg/dL (1.6-2.6); Protein, Total 5.5 g/dL (5.8-8.1); Sodium 145 mmol/L (136-145)
[2022-05-21 06:54] LABS: Band 9 % (5-11); Hemoglobin 12.4 g/dL (14.0-18.0); Lymphocytes 2 % (21-51); MDiff Complete? YES; Mean Corpuscular Hemoglobin 31.7 pg (27.0-31.0); Mean Corpuscular Volume 99.3 fL (78.0-98.0); Mean Platelet Volume 9.5 fL (7.4-10.4); Monocytes 1 % (0-10); Neutrophil 88 % (42-75); Platelet Count 263 thou/uL (130-400); RBC Distribution Width 15.2 % (11.5-14.5); Red Blood Cell (RBC) Count 3.92 mill/uL (4.70-6.10); White Blood Cell (WBC) Count 12.4 thou/uL (4.8-10.8)
[2022-05-21 07:01] LABS: Base Excess (BEa) 8.8 mEq/L (-2.0 to +3.0); CO2 Tension 43.5 mmHg (35.0-45.0); Calcium, Ionized (arterial) 1.23 mmol/L (1.12-1.30); Carboxyhemoglobin (COHb) 0.6 gm% (0.0-3.0); Hemoglobin (Hb) 13.8 g/dL (14.0-18.0); O2 Tension (PaO2), arterial 101.9 mmHg (> 80.0); Potassium - ABG Lab 3.66 mmol/L (3.70-5.30)
[2022-05-21 07:07] LABS: ALV-art Gradient 128.925 mmHg (0-20); Puncture Site RRA
[2022-05-21] MEDS: methylPREDNISolone Sod Succ 40 MG VIAL IVP SCH (07:41)
[2022-05-21] MEDS: Carvedilol 6.25 MG TAB PER TUBE SCH (08:35)
[2022-05-21] MEDS: Apixaban 5 MG TAB PO SCH ×2 (08:36→20:32)
[2022-05-21] MEDS: Nystatin Powder 15 GM BOT TOP SCH ×3 (08:36→20:35)
[2022-05-21] MEDS: Bacitracin 1 PK TOP SCH (08:36)
[2022-05-21] MEDS: Famotidine 40 MG/5 ML Oral Suspension PER TUBE SCH ×2 (08:37→20:32)
[2022-05-21] MEDS: NPH, Human Insulin Isophane 300 UNIT/3 ML VIAL SC SCH ×2 (08:39→20:33)
[2022-05-21 08:54] LABS: Vancomycin, Trough 13.4 ug/mL
[2022-05-21] MEDS: VANCOMYCIN 2 GRAM/500 ML BAG 2 GM in Premix Bag 1 BAG IVPB SCH (09:41)
[2022-05-21] MEDS ORDERED: Amlodipine 10 MG TAB PER TUBE SCH (11:15)
[2022-05-21] MEDS: Dronedarone HCl 400 MG TAB PER TUBE SCH (17:57)
[2022-05-21] MEDS: Cefepime 2 GM in Sodium Chloride 0.9% 100 ML IVPB SCH (20:32)
[2022-05-22] MEDS: Propofol 1,000 MG/100 ML VIAL IV PRN ×3 (02:25→21:10)
[2022-05-22 03:51] LABS: #Eosinphils 0.1 thou/uL (0.0-0.7); #Lymphocytes 1.4 thou/uL (1.20-3.40); #Monocytes 0.6 thou/uL (0.11-0.59); %Basophils 0.2 % (0.0-1.0); %Eosinophils 0.6 % (0.0-10.0); %Lymphocytes 11.7 % (21.0-51.0); %Monocytes 4.7 % (0.0-10.0); %Neutrophils 82.8 % (42.0-75.0); Mean Corpuscular HGB CONC 32.5 g/dL (32.0-36.0); Mean Corpuscular Hemoglobin 32.1 pg (27.0-31.0); Mean Corpuscular Volume 98.9 fL (78.0-98.0); Mean Platelet Volume 9.1 fL (7.4-10.4); Platelet Count 262 thou/uL (130-400); RBC Distribution Width 15.4 % (11.5-14.5); Red Blood Cell (RBC) Count 4.03 mill/uL (4.70-6.10); White Blood Cell (WBC) Count 12.1 thou/uL (4.8-10.8)
[2022-05-22 04:03] LABS: ALT (SGPT) 60 U/L (8-55); AST (SGOT) 28 U/L (5-34); Alkaline Phosphatase 67 U/L (40-110); Anion Gap 14 mmol/L (10-20); BUN (Urea Nitrogen) 34 mg/dL (8.4-25.7); Bilirubin, Total 0.5 mg/dL (0.2-1.2); Calc. Creatinine Clearance 146 mL/min (70-130); Calcium 9.9 mg/dL (7.8-10.44); Carbon Dioxide 31 mmol/L (23-31); Chloride 104 mmol/L (98-107); Estimated GFR 103; Globulin 2.2 g/dL (2.4-3.5); Glucose 135 mg/dL (80-115); Magnesium 2.5 mg/dL (1.6-2.6); Potassium 3.9 mmol/L (3.5-5.1); Protein, Total 5.2 g/dL (5.8-8.1); Sodium 145 mmol/L (136-145)
[2022-05-22 07:23] LABS: Actual Bicarbonate (HCO3a) 34.6 mEq/L (22-28); Base Excess (BEa) 9.3 mEq/L (-2.0 to +3.0); CO2 Tension 48.6 mmHg (35.0-45.0); Carboxyhemoglobin (COHb) 0.7 gm% (0.0-3.0); Hemoglobin (Hb) 15.1 g/dL (14.0-18.0); O2 Tension (PaO2), arterial 87.8 mmHg (> 80.0); Potassium - ABG Lab 3.69 mmol/L (3.70-5.30); pH, Arterial 7.47 (7.35-7.45)
[2022-05-22 07:53] LABS: Puncture Site RRA
[2022-05-22] MEDS: Bacitracin 1 PK TOP SCH (09:00)
[2022-05-22] MEDS: Apixaban 5 MG TAB PO SCH ×2 (09:00→21:10)
[2022-05-22] MEDS: Dronedarone HCl 400 MG TAB PER TUBE SCH ×2 (09:00→17:20)
[2022-05-22] MEDS: Cefepime 2 GM in Sodium Chloride 0.9% 100 ML IVPB SCH ×2 (09:01→21:11)
[2022-05-22] MEDS: Famotidine 40 MG/5 ML Oral Suspension PER TUBE SCH ×2 (09:01→21:10)
[2022-05-22] MEDS: methylPREDNISolone Sod Succ 40 MG VIAL IVP SCH (09:01)
[2022-05-22] MEDS: NPH, Human Insulin Isophane 300 UNIT/3 ML VIAL SC SCH ×2 (09:01→21:13)
[2022-05-22] MEDS: Nystatin Powder 15 GM BOT TOP SCH ×3 (09:01→21:15)
[2022-05-22] MEDS: Amlodipine 10 MG TAB PER TUBE SCH (09:09)
[2022-05-22] MEDS: Insulin Regular 300 UNITS/3 ML VIAL SC PRN (12:16)
[2022-05-22] MEDS: Metoclopramide HCl 10 MG/2 ML VIAL IVP SCH (17:20)
[2022-05-23] MEDS: Metoclopramide HCl 10 MG/2 ML VIAL IVP SCH ×5 (02:26→23:48)
[2022-05-23 06:57] LABS: Base Excess (BEa) 7.3 mEq/L (-2.0 to +3.0); CO2 Tension 40.1 mmHg (35.0-45.0); Calcium, Ionized (arterial) 1.29 mmol/L (1.12-1.30); Carboxyhemoglobin (COHb) 0.1 gm% (0.0-3.0); Hemoglobin (Hb) 12.6 g/dL (14.0-18.0); O2 Tension (PaO2), arterial 97.7 mmHg (> 80.0); Potassium - ABG Lab 3.96 mmol/L (3.70-5.30); pH, Arterial 7.51 (7.35-7.45)
[2022-05-23 07:04] LABS: Puncture Site RRA
[2022-05-23 07:05] LABS: ALV-art Gradient 137.375 mmHg (0-20)
[2022-05-23] MEDS: Amlodipine 10 MG TAB PER TUBE SCH (08:00)
[2022-05-23] MEDS: methylPREDNISolone Sod Succ 40 MG VIAL IVP SCH (08:00)
[2022-05-23] MEDS: Apixaban 5 MG TAB PO SCH ×2 (08:01→20:33)
[2022-05-23] MEDS: Dronedarone HCl 400 MG TAB PER TUBE SCH ×2 (08:01→15:49)
[2022-05-23] MEDS: Bacitracin 1 PK TOP SCH (08:01)
[2022-05-23] MEDS: Nystatin Powder 15 GM BOT TOP SCH ×3 (08:01→20:34)
[2022-05-23] MEDS: Famotidine 40 MG/5 ML Oral Suspension PER TUBE SCH ×2 (08:05→20:33)
[2022-05-23] MEDS: Cefepime 2 GM in Sodium Chloride 0.9% 100 ML IVPB SCH ×2 (08:05→20:34)
[2022-05-23] MEDS: NPH, Human Insulin Isophane 300 UNIT/3 ML VIAL SC SCH ×2 (08:06→21:09)
[2022-05-23] MEDS: Propofol 1,000 MG/100 ML VIAL IV PRN (13:22)
[2022-05-23] MEDS ORDERED: Dexmedetomidine In 0.9 % NaCl 400 MCG in Premix Bag 1 BAG IVPB SCH (14:30)
[2022-05-23] MEDS ORDERED: Polyethylene Glycol 3350 17 GM Packet PER TUBE SCH (15:15)
[2022-05-23] MEDS ORDERED: VANCOMYCIN 1.25 GM/250 ML BAG 1.25 GM in Premix Bag 1 BAG IVPB SCH (21:00)
[2022-05-23] MEDS: VANCOMYCIN 1.25 GM/250 ML BAG 1.25 GM in Premix Bag 1 BAG IVPB SCH (21:18)
[2022-05-24 03:54] LABS: #Eosinphils 0.2 thou/uL (0.0-0.7); #Lymphocytes 1.2 thou/uL (1.20-3.40); #Monocytes 0.7 thou/uL (0.11-0.59); #Neutrophils 8.6 thou/uL (1.40-6.50); %Basophils 0.1 % (0.0-1.0); %Eosinophils 1.5 % (0.0-10.0); %Lymphocytes 11.5 % (21.0-51.0); %Monocytes 6.7 % (0.0-10.0); %Neutrophils 80.1 % (42.0-75.0); Hemoglobin 13.5 g/dL (14.0-18.0); Mean Corpuscular HGB CONC 32.3 g/dL (32.0-36.0); Mean Corpuscular Hemoglobin 32.2 pg (27.0-31.0); Mean Corpuscular Volume 99.9 fL (78.0-98.0); Mean Platelet Volume 9.6 fL (7.4-10.4); Platelet Count 197 thou/uL (130-400); RBC Distribution Width 14.9 % (11.5-14.5); Red Blood Cell (RBC) Count 4.18 mill/uL (4.70-6.10); White Blood Cell (WBC) Count 10.8 thou/uL (4.8-10.8)
[2022-05-24 04:14] LABS: Anion Gap 15 mmol/L (10-20); BUN (Urea Nitrogen) 29 mg/dL (8.4-25.7); Calc. Creatinine Clearance 153 mL/min (70-130); Calcium 9.3 mg/dL (7.8-10.44); Carbon Dioxide 27 mmol/L (23-31); Chloride 107 mmol/L (98-107); Estimated GFR 104; Glucose 95 mg/dL (80-115); Potassium 4.3 mmol/L (3.5-5.1); Sodium 145 mmol/L (136-145)
[2022-05-24] MEDS: Metoclopramide HCl 10 MG/2 ML VIAL IVP SCH ×4 (06:23→23:16)
[2022-05-24] MEDS: VANCOMYCIN 1.25 GM/250 ML BAG 1.25 GM in Premix Bag 1 BAG IVPB SCH ×3 (06:23→23:16)
[2022-05-24 07:03] LABS: Actual Bicarbonate (HCO3a) 31.8 mEq/L (22-28); Base Excess (BEa) 6.6 mEq/L (-2.0 to +3.0); CO2 Tension 47.5 mmHg (35.0-45.0); Calcium, Ionized (arterial) 1.27 mmol/L (1.12-1.30); Carboxyhemoglobin (COHb) 0.6 gm% (0.0-3.0); Hemoglobin (Hb) 13.9 g/dL (14.0-18.0); O2 Tension (PaO2), arterial 97.8 mmHg (> 80.0); Potassium - ABG Lab 3.65 mmol/L (3.70-5.30); pH, Arterial 7.44 (7.35-7.45)
[2022-05-24 07:10] LABS: ALV-art Gradient 128.025 mmHg (0-20); Puncture Site RRA
[2022-05-24] MEDS: Dronedarone HCl 400 MG TAB PER TUBE SCH ×2 (08:30→16:54)
[2022-05-24] MEDS ORDERED: Fleet Enema 133 ML BOT PR SCH (09:00)
[2022-05-24] MEDS: Apixaban 5 MG TAB PO SCH ×2 (09:38→21:08)
[2022-05-24] MEDS: Famotidine 40 MG/5 ML Oral Suspension PER TUBE SCH ×2 (09:38→21:17)
[2022-05-24] MEDS: Cefepime 2 GM in Sodium Chloride 0.9% 100 ML IVPB SCH ×2 (09:38→21:08)
[2022-05-24] MEDS: Bacitracin 1 PK TOP SCH (09:38)
[2022-05-24] MEDS: Amlodipine 10 MG TAB PER TUBE SCH (09:40)
[2022-05-24] MEDS: methylPREDNISolone Sod Succ 40 MG VIAL IVP SCH (09:40)
[2022-05-24] MEDS: Nystatin Powder 15 GM BOT TOP SCH ×3 (09:42→21:09)
[2022-05-24] MEDS: NPH, Human Insulin Isophane 300 UNIT/3 ML VIAL SC SCH ×2 (09:42→21:21)
[2022-05-24] MEDS: Morphine 2 MG/ML VIAL SLOW IVP PRN (15:37)
[2022-05-24] MEDS: Labetalol HCl 100 MG/20 ML VIAL SLOW IVP PRN (17:34)
[2022-05-24] MEDS: Propofol 1,000 MG/100 ML VIAL IV PRN (18:24)
[2022-05-24] MEDS ORDERED: hydrALAZINE 20 MG/ML VIAL ONE (19:12)
[2022-05-24] MEDS: hydrALAZINE 20 MG/ML VIAL SLOW IVP PRN (19:17)
[2022-05-24 22:14] LABS: Vancomycin, Trough 27.9 ug/mL
[2022-05-25 06:23] LABS: Vancomycin, Random 19.3 ug/mL (See Comment)
[2022-05-25] MEDS: Metoclopramide HCl 10 MG/2 ML VIAL IVP SCH ×3 (06:37→18:45)
[2022-05-25] MEDS ORDERED: Amiodarone 150 MG, Admixture Fee 1 EACH in Dextrose 5% in Water 100 ML IVPB SCH (07:45)
[2022-05-25] MEDS ORDERED: Vancomycin 1 GM in Premix Bag 1 BAG IVPB SCH (08:00)
[2022-05-25] MEDS: Amiodarone 450 MG, Admixture Fee 1 EACH in Dextrose 5% in Water 250 ML IVPB SCH ×2 (08:25→17:29)
[2022-05-25] MEDS: NPH, Human Insulin Isophane 300 UNIT/3 ML VIAL SC SCH (09:00)
[2022-05-25] MEDS: Cefepime 2 GM in Sodium Chloride 0.9% 100 ML IVPB SCH ×2 (09:42→20:38)
[2022-05-25] MEDS: Bacitracin 1 PK TOP SCH (09:43)
[2022-05-25] MEDS: Apixaban 5 MG TAB PO SCH (09:44)
[2022-05-25] MEDS: methylPREDNISolone Sod Succ 40 MG VIAL IVP SCH (09:46)
[2022-05-25] MEDS: Famotidine 40 MG/5 ML Oral Suspension PER TUBE SCH (09:46)
[2022-05-25] MEDS ORDERED: Bisacodyl 10 MG SUPP PR SCH (10:00)
[2022-05-25] MEDS ORDERED: Famotidine/PF 20 mg/2ml Vial SLOW IVP SCH (10:00)
[2022-05-25] MEDS ORDERED: Enoxaparin Sodium 60 MG/0.6 ML SYRINGE SC SCH (10:00)
[2022-05-25] MEDS: Amlodipine 10 MG TAB PER TUBE SCH (10:43)
[2022-05-25] MEDS: Nystatin Powder 15 GM BOT TOP SCH ×3 (10:44→20:39)
[2022-05-25] MEDS: hydrALAZINE 20 MG/ML VIAL SLOW IVP PRN ×2 (11:34→23:10)
[2022-05-25] MEDS: Insulin Regular 300 UNITS/3 ML VIAL SC PRN (13:07)
[2022-05-25] MEDS: Famotidine/PF 20 mg/2ml Vial SLOW IVP SCH (20:38)
[2022-05-25] MEDS: Enoxaparin Sodium 60 MG/0.6 ML SYRINGE SC SCH (20:39)
[2022-05-25] MEDS: Labetalol HCl 100 MG/20 ML VIAL SLOW IVP PRN (22:03)
[2022-05-26] MEDS: Metoclopramide HCl 10 MG/2 ML VIAL IVP SCH ×4 (00:14→17:44)
[2022-05-26 07:42] LABS: Actual Bicarbonate (HCO3a) 26.4 mEq/L (22-28); Base Excess (BEa) 2.8 mEq/L (-2.0 to +3.0); CO2 Tension 37.3 mmHg (35.0-45.0); Calcium, Ionized (arterial) 1.27 mmol/L (1.12-1.30); Carboxyhemoglobin (COHb) 0.6 gm% (0.0-3.0); Hemoglobin (Hb) 15.5 g/dL (14.0-18.0); O2 Tension (PaO2), arterial 93.4 mmHg (> 80.0); Potassium - ABG Lab 3.33 mmol/L (3.70-5.30); pH, Arterial 7.47 (7.35-7.45)
[2022-05-26 07:51] LABS: ALV-art Gradient 145.175 mmHg (0-20); Puncture Site RRA
[2022-05-26] MEDS: Dronedarone HCl 400 MG TAB PER TUBE SCH (08:59)
[2022-05-26] MEDS: Cefepime 2 GM in Sodium Chloride 0.9% 100 ML IVPB SCH ×2 (09:00→21:09)
[2022-05-26] MEDS: Enoxaparin Sodium 60 MG/0.6 ML SYRINGE SC SCH ×2 (09:00→21:09)
[2022-05-26] MEDS: Amiodarone 450 MG, Admixture Fee 1 EACH in Dextrose 5% in Water 250 ML IVPB SCH (09:00)
[2022-05-26] MEDS: Bacitracin 1 PK TOP SCH (09:00)
[2022-05-26] MEDS: methylPREDNISolone Sod Succ 40 MG VIAL IVP SCH (09:00)
[2022-05-26] MEDS: Famotidine/PF 20 mg/2ml Vial SLOW IVP SCH ×2 (09:00→21:09)
[2022-05-26] MEDS: Nystatin Powder 15 GM BOT TOP SCH ×3 (09:01→21:11)
[2022-05-26] MEDS: Amlodipine 10 MG TAB PER TUBE SCH (09:03)
[2022-05-26] MEDS: NPH, Human Insulin Isophane 300 UNIT/3 ML VIAL SC SCH (21:10)
[2022-05-27] MEDS: Metoclopramide HCl 10 MG/2 ML VIAL IVP SCH ×2 (00:05→06:40)
[2022-05-27 04:56] LABS: #Eosinphils 0.1 thou/uL (0.0-0.7); #Lymphocytes 1.7 thou/uL (1.20-3.40); #Neutrophils 12.1 thou/uL (1.40-6.50); %Basophils 0.1 % (0.0-1.0); %Eosinophils 0.6 % (0.0-10.0); %Lymphocytes 11.3 % (21.0-51.0); %Monocytes 6.9 % (0.0-10.0); %Neutrophils 81.1 % (42.0-75.0); Hemoglobin 12.3 g/dL (14.0-18.0); Mean Corpuscular HGB CONC 33.3 g/dL (32.0-36.0); Mean Corpuscular Hemoglobin 32.3 pg (27.0-31.0); Mean Corpuscular Volume 96.8 fL (78.0-98.0); Platelet Count 235 thou/uL (130-400); RBC Distribution Width 14.6 % (11.5-14.5); Red Blood Cell (RBC) Count 3.81 mill/uL (4.70-6.10); White Blood Cell (WBC) Count 14.9 thou/uL (4.8-10.8)
[2022-05-27 05:20] LABS: Anion Gap 16 mmol/L (10-20); BUN (Urea Nitrogen) 23 mg/dL (8.4-25.7); Calc. Creatinine Clearance 144 mL/min (70-130); Carbon Dioxide 22 mmol/L (23-31); Chloride 107 mmol/L (98-107); Estimated GFR 103; Glucose 72 mg/dL (80-115); Potassium 3.5 mmol/L (3.5-5.1); Sodium 141 mmol/L (136-145)
[2022-05-27] MEDS: Cefepime 2 GM in Sodium Chloride 0.9% 100 ML IVPB SCH ×2 (09:14→20:25)
[2022-05-27] MEDS: Bacitracin 1 PK TOP SCH (09:14)
[2022-05-27] MEDS: Amlodipine 10 MG TAB PER TUBE SCH (09:14)
[2022-05-27] MEDS: Famotidine/PF 20 mg/2ml Vial SLOW IVP SCH ×2 (09:16→20:32)
[2022-05-27] MEDS: methylPREDNISolone Sod Succ 40 MG VIAL IVP SCH (09:16)
[2022-05-27] MEDS: Enoxaparin Sodium 60 MG/0.6 ML SYRINGE SC SCH ×2 (09:16→20:32)
[2022-05-27] MEDS: NPH, Human Insulin Isophane 300 UNIT/3 ML VIAL SC SCH (09:17)
[2022-05-27] MEDS: Nystatin Powder 15 GM BOT TOP SCH ×3 (09:17→20:41)
[2022-05-27] MEDS ORDERED: busPIRone HCl 10 MG TAB PO SCH (10:45)
[2022-05-27] MEDS ORDERED: Metoprolol Tartrate 5 MG/5 ML VIAL IVP PRN (12:37)
[2022-05-27] MEDS ORDERED: cloNIDine 0.1mg/24 Hour PATCH TD SCH (13:00)
[2022-05-27] MEDS ORDERED: Furosemide 40 MG/4 ML VIAL SLOW IVP SCH (15:15)
[2022-05-27] MEDS ORDERED: Potassium Chloride 20 MEQ TAB PO SCH (15:15)
[2022-05-27] MEDS: busPIRone HCl 10 MG TAB PO SCH ×3 (15:25→23:33)
[2022-05-27] MEDS: Gabapentin 300 MG CAP PO SCH ×3 (15:25→23:34)
[2022-05-27] MEDS: Multivitamins, Adult 10 ML, Folic Acid 1 MG, Thiamine HCl 100 MG in Dextrose 5 %-0.45 %... IV SCH ×2 (16:37→20:25)
[2022-05-27] MEDS: Amiodarone 200 MG TAB PO SCH ×2 (20:19→23:33)
[2022-05-27] MEDS ORDERED: Metoprolol Tartrate 5 MG/5 ML VIAL IVP SCH (21:45)
[2022-05-27 23:08] LABS: Magnesium 1.9 mg/dL (1.6-2.6); Potassium 3.1 mmol/L (3.5-5.1)
[2022-05-28 04:52] LABS: Anion Gap 16 mmol/L (10-20); BUN (Urea Nitrogen) 19 mg/dL (8.4-25.7); Calc. Creatinine Clearance 136 mL/min (70-130); Calcium 8.7 mg/dL (7.8-10.44); Carbon Dioxide 23 mmol/L (23-31); Chloride 105 mmol/L (98-107); Estimated GFR 101; Glucose 80 mg/dL (80-115); Magnesium 1.8 mg/dL (1.6-2.6); Sodium 141 mmol/L (136-145)
[2022-05-28 04:56] LABS: Potassium 2.8 mmol/L (3.5-5.1)
[2022-05-28] MEDS ORDERED: Magnesium 2 GM/50 ML(in water) 2 GM in Premix Bag 1 BAG IVPB SCH (05:15)
[2022-05-28] MEDS ORDERED: Potassium Phosphate 15 MMOL in Sodium Chloride 0.9% 100 ML IVPB SCH (05:30)
[2022-05-28] MEDS ORDERED: Potassium Chloride 40 MEQ in Sodium Chloride 0.9% 250 ML 250 ML IVPB SCH (05:30)
[2022-05-28] MEDS ORDERED: Potassium Chloride 20 MEQ in Premix Bag 1 BAG IVPB SCH (09:30)
[2022-05-28] MEDS: Famotidine/PF 20 mg/2ml Vial SLOW IVP SCH ×2 (09:56→22:03)
[2022-05-28] MEDS: Cefepime 2 GM in Sodium Chloride 0.9% 100 ML IVPB SCH (09:56)
[2022-05-28] MEDS: Enoxaparin Sodium 60 MG/0.6 ML SYRINGE SC SCH ×2 (09:56→22:04)
[2022-05-28] MEDS: Bacitracin 1 PK TOP SCH (09:57)
[2022-05-28] MEDS: Gabapentin 300 MG CAP PO SCH ×3 (10:58→22:02)
[2022-05-28] MEDS: busPIRone HCl 10 MG TAB PO SCH ×3 (10:58→22:03)
[2022-05-28] MEDS: Cyanocobalamin (Vitamin B-12) 1,000 MCG TAB PO SCH (10:58)
[2022-05-28] MEDS: Torsemide 20 MG TAB PO SCH (10:58)
[2022-05-28] MEDS: Thiamine 100 MG TAB PO SCH (10:59)
[2022-05-28] MEDS: Nystatin Powder 15 GM BOT TOP SCH ×3 (10:59→22:05)
[2022-05-28] MEDS: Amiodarone 200 MG TAB PO SCH ×2 (10:59→22:02)
[2022-05-28] MEDS: Amlodipine 10 MG TAB PER TUBE SCH (11:01)
[2022-05-28 16:14] LABS: Potassium 3.2 mmol/L (3.5-5.1)
[2022-05-29 05:00] LABS: #Eosinphils 0.3 thou/uL (0.0-0.7); #Lymphocytes 1.6 thou/uL (1.20-3.40); #Monocytes 0.8 thou/uL (0.11-0.59); #Neutrophils 6.3 thou/uL (1.40-6.50); %Basophils 0.5 % (0.0-1.0); %Eosinophils 2.9 % (0.0-10.0); %Lymphocytes 17.9 % (21.0-51.0); %Monocytes 8.5 % (0.0-10.0); %Neutrophils 70.2 % (42.0-75.0); Hemoglobin 11.9 g/dL (14.0-18.0); Mean Corpuscular HGB CONC 32.6 g/dL (32.0-36.0); Mean Corpuscular Hemoglobin 31.6 pg (27.0-31.0); Mean Platelet Volume 9.9 fL (7.4-10.4); Platelet Count 227 thou/uL (130-400); RBC Distribution Width 14.5 % (11.5-14.5); Red Blood Cell (RBC) Count 3.76 mill/uL (4.70-6.10)
[2022-05-29 05:23] LABS: Anion Gap 12 mmol/L (10-20); BUN (Urea Nitrogen) 16 mg/dL (8.4-25.7); Calc. Creatinine Clearance 130 mL/min (70-130); Calcium 8.7 mg/dL (7.8-10.44); Carbon Dioxide 27 mmol/L (23-31); Chloride 107 mmol/L (98-107); Estimated GFR 100; Glucose 105 mg/dL (80-115); Magnesium 1.8 mg/dL (1.6-2.6); Phosphorus 2.3 mg/dL (2.3-4.7); Sodium 143 mmol/L (136-145)
[2022-05-29] MEDS ORDERED: Magnesium 2 GM/50 ML(in water) 2 GM in Premix Bag 1 BAG IVPB SCH (08:00)
[2022-05-29] MEDS ORDERED: Potassium Chloride 20 MEQ TAB PO SCH (08:00)
[2022-05-29] MEDS: Amiodarone 200 MG TAB PO SCH ×2 (09:07→21:24)
[2022-05-29] MEDS: busPIRone HCl 10 MG TAB PO SCH ×3 (09:07→21:24)
[2022-05-29] MEDS: Gabapentin 300 MG CAP PO SCH ×3 (09:07→21:24)
[2022-05-29] MEDS: Torsemide 20 MG TAB PO SCH (09:07)
[2022-05-29] MEDS: Famotidine/PF 20 mg/2ml Vial SLOW IVP SCH ×2 (09:07→21:23)
[2022-05-29] MEDS: Enoxaparin Sodium 60 MG/0.6 ML SYRINGE SC SCH ×2 (09:08→21:23)
[2022-05-29] MEDS: Bacitracin 1 PK TOP SCH (09:08)
[2022-05-29] MEDS: Cyanocobalamin (Vitamin B-12) 1,000 MCG TAB PO SCH (09:08)
[2022-05-29] MEDS: Nystatin Powder 15 GM BOT TOP SCH ×3 (09:08→21:27)
[2022-05-29] MEDS: Amlodipine 10 MG TAB PER TUBE SCH (09:08)
[2022-05-29] MEDS: Thiamine 100 MG TAB PO SCH (09:08)
[2022-05-29] MEDS ORDERED: busPIRone HCl 10 MG TAB PO SCH ×2 (10:25→10:30)
[2022-05-30 05:05] LABS: #Eosinphils 0.4 thou/uL (0.0-0.7); #Lymphocytes 1.7 thou/uL (1.20-3.40); #Monocytes 0.6 thou/uL (0.11-0.59); #Neutrophils 6.5 thou/uL (1.40-6.50); %Basophils 0.3 % (0.0-1.0); %Eosinophils 4.3 % (0.0-10.0); %Lymphocytes 18.1 % (21.0-51.0); %Monocytes 6.3 % (0.0-10.0); Hemoglobin 11.8 g/dL (14.0-18.0); Mean Corpuscular HGB CONC 32.4 g/dL (32.0-36.0); Mean Corpuscular Hemoglobin 31.6 pg (27.0-31.0); Mean Corpuscular Volume 97.8 fL (78.0-98.0); Mean Platelet Volume 9.9 fL (7.4-10.4); Platelet Count 225 thou/uL (130-400); RBC Distribution Width 14.6 % (11.5-14.5); Red Blood Cell (RBC) Count 3.72 mill/uL (4.70-6.10); White Blood Cell (WBC) Count 9.1 thou/uL (4.8-10.8)
[2022-05-30 05:36] LABS: Anion Gap 14 mmol/L (10-20); BUN (Urea Nitrogen) 13 mg/dL (8.4-25.7); Calc. Creatinine Clearance 121 mL/min (70-130); Calcium 8.9 mg/dL (7.8-10.44); Carbon Dioxide 28 mmol/L (23-31); Chloride 106 mmol/L (98-107); Estimated GFR 99; Glucose 130 mg/dL (80-115); Phosphorus 2.6 mg/dL (2.3-4.7); Potassium 3.3 mmol/L (3.5-5.1); Sodium 145 mmol/L (136-145)
[2022-05-30] MEDS ORDERED: Magnesium 2 GM/50 ML(in water) 2 GM in Premix Bag 1 BAG IVPB SCH (08:00)
[2022-05-30] MEDS ORDERED: Potassium Chloride 20 MEQ TAB PO SCH (08:00)
[2022-05-30] MEDS: Bacitracin 1 PK TOP SCH (11:13)
[2022-05-30] MEDS: Enoxaparin Sodium 60 MG/0.6 ML SYRINGE SC SCH ×2 (11:13→22:02)
[2022-05-30] MEDS: Potassium Chloride 20 MEQ TAB PO SCH (11:14)
[2022-05-30] MEDS: Torsemide 20 MG TAB PO SCH (11:14)
[2022-05-30] MEDS: Thiamine 100 MG TAB PO SCH (11:14)
[2022-05-30] MEDS: Amiodarone 200 MG TAB PO SCH ×2 (11:14→21:59)
[2022-05-30] MEDS: busPIRone HCl 10 MG TAB PO SCH ×3 (11:14→21:59)
[2022-05-30] MEDS: Folic Acid 1 MG TAB PO SCH (11:14)
[2022-05-30] MEDS: Cyanocobalamin (Vitamin B-12) 1,000 MCG TAB PO SCH (11:15)
[2022-05-30] MEDS: Multivit, Therapeutic 1 TAB PO SCH (11:15)
[2022-05-30] MEDS: Famotidine/PF 20 mg/2ml Vial SLOW IVP SCH ×2 (11:15→22:02)
[2022-05-30] MEDS: Gabapentin 300 MG CAP PO SCH ×3 (11:15→21:59)
[2022-05-30] MEDS: Amlodipine 10 MG TAB PER TUBE SCH (11:17)
[2022-05-30] MEDS: Nystatin Powder 15 GM BOT TOP SCH ×3 (11:17→22:01)
[2022-05-31 05:09] LABS: Anion Gap 16 mmol/L (10-20); BUN (Urea Nitrogen) 11 mg/dL (8.4-25.7); Calc. Creatinine Clearance 109 mL/min (70-130); Carbon Dioxide 27 mmol/L (23-31); Chloride 104 mmol/L (98-107); Estimated GFR 96; Glucose 104 mg/dL (80-115); Potassium 3.5 mmol/L (3.5-5.1); Sodium 143 mmol/L (136-145)
[2022-05-31] MEDS: Enoxaparin Sodium 60 MG/0.6 ML SYRINGE SC SCH ×2 (10:07→22:12)
[2022-05-31] MEDS: Potassium Chloride 20 MEQ TAB PO SCH (10:08)
[2022-05-31] MEDS: Torsemide 20 MG TAB PO SCH (10:08)
[2022-05-31] MEDS: busPIRone HCl 10 MG TAB PO SCH ×3 (10:08→22:12)
[2022-05-31] MEDS: Multivit, Therapeutic 1 TAB PO SCH (10:08)
[2022-05-31] MEDS: Folic Acid 1 MG TAB PO SCH (10:08)
[2022-05-31] MEDS: Gabapentin 300 MG CAP PO SCH ×3 (10:09→22:12)
[2022-05-31] MEDS: Amiodarone 200 MG TAB PO SCH ×2 (10:09→22:11)
[2022-05-31] MEDS: Famotidine/PF 20 mg/2ml Vial SLOW IVP SCH ×2 (10:10→22:12)
[2022-05-31] MEDS: Thiamine 100 MG TAB PO SCH (10:10)
[2022-05-31] MEDS: Cyanocobalamin (Vitamin B-12) 1,000 MCG TAB PO SCH (10:10)
[2022-05-31] MEDS: Nystatin Powder 15 GM BOT TOP SCH ×3 (10:10→22:15)
[2022-05-31] MEDS: Amlodipine 10 MG TAB PER TUBE SCH (10:19)
[2022-05-31] MEDS ORDERED: Potassium Chloride 20 MEQ TAB PO SCH (12:00)
[2022-06-01] MEDS: Nystatin Powder 15 GM BOT TOP SCH ×3 (10:32→21:34)
[2022-06-01] MEDS: Cyanocobalamin (Vitamin B-12) 1,000 MCG TAB PO SCH (10:32)
[2022-06-01] MEDS: Gabapentin 300 MG CAP PO SCH ×3 (10:32→21:35)
[2022-06-01] MEDS: Amiodarone 200 MG TAB PO SCH ×2 (10:32→21:34)
[2022-06-01] MEDS: Multivit, Therapeutic 1 TAB PO SCH (10:32)
[2022-06-01] MEDS: Amlodipine 10 MG TAB PER TUBE SCH (10:32)
[2022-06-01] MEDS: Folic Acid 1 MG TAB PO SCH (10:32)
[2022-06-01] MEDS: Famotidine/PF 20 mg/2ml Vial SLOW IVP SCH ×2 (10:32→21:35)
[2022-06-01] MEDS: busPIRone HCl 10 MG TAB PO SCH ×3 (10:32→21:34)
[2022-06-01] MEDS: Apixaban 5 MG TAB PO SCH ×2 (10:32→21:34)
[2022-06-01] MEDS: Potassium Chloride 20 MEQ TAB PO SCH (10:32)
[2022-06-01] MEDS: Torsemide 20 MG TAB PO SCH (10:33)
[2022-06-01] MEDS: Thiamine 100 MG TAB PO SCH (10:33)
[2022-06-02] MEDS: Famotidine/PF 20 mg/2ml Vial SLOW IVP SCH ×2 (08:15→20:49)
[2022-06-02] MEDS: busPIRone HCl 10 MG TAB PO SCH ×3 (08:15→20:49)
[2022-06-02] MEDS: Gabapentin 300 MG CAP PO SCH ×3 (08:16→20:48)
[2022-06-02] MEDS: Cyanocobalamin (Vitamin B-12) 1,000 MCG TAB PO SCH (08:17)
[2022-06-02] MEDS: Thiamine 100 MG TAB PO SCH (08:17)
[2022-06-02] MEDS: Amiodarone 200 MG TAB PO SCH ×2 (08:17→20:48)
[2022-06-02] MEDS: Amlodipine 10 MG TAB PER TUBE SCH (08:18)
[2022-06-02] MEDS: Nystatin Powder 15 GM BOT TOP SCH ×3 (08:18→20:50)
[2022-06-02] MEDS: Potassium Chloride 20 MEQ TAB PO SCH (08:18)
[2022-06-02] MEDS: Folic Acid 1 MG TAB PO SCH (08:18)
[2022-06-02] MEDS: Apixaban 5 MG TAB PO SCH ×2 (08:18→20:48)
[2022-06-02] MEDS: Multivit, Therapeutic 1 TAB PO SCH (08:18)
[2022-06-02] MEDS: Torsemide 20 MG TAB PO SCH (08:18)
[2022-06-02 13:23] VITALS: BMI 27.0
[2022-06-03 04:47] LABS: #Eosinphils 0.3 thou/uL (0.0-0.7); #Lymphocytes 1.7 thou/uL (1.20-3.40); #Monocytes 0.6 thou/uL (0.11-0.59); #Neutrophils 9.5 thou/uL (1.40-6.50); %Basophils 0.4 % (0.0-1.0); %Eosinophils 2.1 % (0.0-10.0); %Lymphocytes 13.8 % (21.0-51.0); %Neutrophils 78.8 % (42.0-75.0); Hemoglobin 10.6 g/dL (14.0-18.0); Mean Corpuscular Hemoglobin 31.8 pg (27.0-31.0); Mean Corpuscular Volume 99.3 fL (78.0-98.0); Mean Platelet Volume 9.6 fL (7.4-10.4); Platelet Count 223 thou/uL (130-400); RBC Distribution Width 14.5 % (11.5-14.5); Red Blood Cell (RBC) Count 3.32 mill/uL (4.70-6.10); White Blood Cell (WBC) Count 12.1 thou/uL (4.8-10.8)
[2022-06-03 05:10] LABS: Anion Gap 14 mmol/L (10-20); BUN (Urea Nitrogen) 13 mg/dL (8.4-25.7); Calc. Creatinine Clearance 85 mL/min (70-130); Calcium 8.6 mg/dL (7.8-10.44); Carbon Dioxide 29 mmol/L (23-31); Chloride 102 mmol/L (98-107); Estimated GFR 77; Glucose 119 mg/dL (80-115); Potassium 3.6 mmol/L (3.5-5.1); Sodium 141 mmol/L (136-145)
[2022-06-03] MEDS: Potassium Chloride 20 MEQ TAB PO SCH (08:10)
[2022-06-03] MEDS: Folic Acid 1 MG TAB PO SCH (08:12)
[2022-06-03] MEDS: Famotidine/PF 20 mg/2ml Vial SLOW IVP SCH ×2 (08:12→20:44)
[2022-06-03] MEDS: Torsemide 20 MG TAB PO SCH (08:13)
[2022-06-03] MEDS: busPIRone HCl 10 MG TAB PO SCH ×3 (08:13→20:44)
[2022-06-03] MEDS: Cyanocobalamin (Vitamin B-12) 1,000 MCG TAB PO SCH (08:14)
[2022-06-03] MEDS: Multivit, Therapeutic 1 TAB PO SCH (08:14)
[2022-06-03] MEDS: Amiodarone 200 MG TAB PO SCH ×2 (08:14→20:44)
[2022-06-03] MEDS: Apixaban 5 MG TAB PO SCH ×2 (08:15→20:44)
[2022-06-03] MEDS: Gabapentin 300 MG CAP PO SCH ×3 (08:15→20:43)
[2022-06-03] MEDS: Amlodipine 10 MG TAB PER TUBE SCH (08:15)
[2022-06-03] MEDS: Thiamine 100 MG TAB PO SCH (08:15)
[2022-06-03] MEDS: Nystatin Powder 15 GM BOT TOP SCH ×3 (08:17→20:52)
[2022-06-04] MEDS: Famotidine/PF 20 mg/2ml Vial SLOW IVP SCH (07:47)
[2022-06-04] MEDS: Potassium Chloride 20 MEQ TAB PO SCH (07:47)
[2022-06-04] MEDS: Torsemide 20 MG TAB PO SCH (07:47)
[2022-06-04] MEDS: Thiamine 100 MG TAB PO SCH (07:49)
[2022-06-04] MEDS: Cyanocobalamin (Vitamin B-12) 1,000 MCG TAB PO SCH (07:51)
[2022-06-04] MEDS: Folic Acid 1 MG TAB PO SCH (07:51)
[2022-06-04] MEDS: Multivit, Therapeutic 1 TAB PO SCH (07:51)
[2022-06-04] MEDS: Apixaban 5 MG TAB PO SCH (07:52)
[2022-06-04] MEDS: busPIRone HCl 10 MG TAB PO SCH ×2 (07:52→14:49)
[2022-06-04] MEDS: Gabapentin 300 MG CAP PO SCH ×2 (07:52→14:49)
[2022-06-04] MEDS: Amiodarone 200 MG TAB PO SCH (07:53)
[2022-06-04] MEDS: Amlodipine 10 MG TAB PER TUBE SCH (07:53)
[2022-06-04] MEDS: Nystatin Powder 15 GM BOT TOP SCH ×2 (07:53→14:54)
[2022-06-04 16:42] VITALS: BP 125/82; TEMP 98.6
[2022-06-10] MEDS ORDERED: Amiodarone 200 MG TAB PO SCH (09:00)
[2022-06-17] MEDS ORDERED: Amiodarone 200 MG TAB PO SCH (09:00)
[2022-06-24] MEDS ORDERED: Amiodarone 200 MG TAB PO SCH (09:00)
== END 2022-06-04 18:30 | DRG 870 ==
LOC: ERS 01:15 → CCU 05:57 → 2NO 05-26 18:21
PROVIDERS: ADMIT Family Medicine; ATTEND Family Medicine
PROC: 5A1955Z Respiratory Ventilation, Greater than 96 Consecutive Hours (ICD-10-PCS; principal; 2022-05-19)
PROC: 0D9670Z Drainage of Stomach with Drainage Device, Via Natural or Artificial Opening (ICD-10-PCS; 2022-05-19)
PROC: 3E03329 Introduction of Other Anti-infective into Peripheral Vein, Percutaneous Approach (ICD-10-PCS; 2022-05-19)
PROC: 0BC28ZZ Extirpation of Matter from Carina, Via Natural or Artificial Opening Endoscopic (ICD-10-PCS; 2022-05-19)
DX: A41.9 Sepsis, unspecified organism (principal); J18.9 Pneumonia, unspecified organism; J96.21 Acute and chronic respiratory failure with hypoxia; J96.22 Acute and chronic respiratory failure with hypercapnia; J69.0 Pneumonitis due to inhalation of food and vomit; G93.41 Metabolic encephalopathy; J44.0 Chronic obstructive pulmonary disease with (acute) lower respiratory infection; I50.22 Chronic systolic (congestive) heart failure; G82.20 Paraplegia, unspecified; J44.1 Chronic obstructive pulmonary disease with (acute) exacerbation; E87.2 Acidosis; J98.11 Atelectasis; F05 Delirium due to known physiological condition; I11.0 Hypertensive heart disease with heart failure; Z51.5 Encounter for palliative care; Z20.822 Contact with and (suspected) exposure to COVID-19; F17.210 Nicotine dependence, cigarettes, uncomplicated; I25.10 Atherosclerotic heart disease of native coronary artery without angina pectoris; C61 Malignant neoplasm of prostate; F41.9 Anxiety disorder, unspecified; F32.A Depression, unspecified; G47.33 Obstructive sleep apnea (adult) (pediatric); M10.9 Gout, unspecified; E11.65 Type 2 diabetes mellitus with hyperglycemia; R65.20 Severe sepsis without septic shock; G62.9 Polyneuropathy, unspecified; I48.0 Paroxysmal atrial fibrillation; Z96.642 Presence of left artificial hip joint; F10.10 Alcohol abuse, uncomplicated; E83.42 Hypomagnesemia; E83.39 Other disorders of phosphorus metabolism; E87.6 Hypokalemia; Z88.0 Allergy status to penicillin; Z79.01 Long term (current) use of anticoagulants; Z79.899 Other long term (current) drug therapy; Z79.52 Long term (current) use of systemic steroids; Z78.1 Physical restraint status; Z98.890 Other specified postprocedural states; Z99.81 Dependence on supplemental oxygen; Z79.51 Long term (current) use of inhaled steroids
CPT/HCPCS: 31624; 36415; 36416; 36600; 70450; 71045; 71275; 74230; 80048; 80053; 80202; 82805; 83036; 83605; 83735; 83880; 84100; 84145; 84443; 84484; 85025; 87040; 87070; 87205; 93005; 93010; 93306; 94002; 94003; 94640; 96374; 96375; 97139; J0282; J0360; J0692; J1650; J1815; J1940; J2185; J2250; J2270; J2704; J2765; J2920; J3370; J3411; J3475; J3480; J3490; J7042; J7050; J7070; J7120; J7620; Q9967; S0028; U0002; U0003; U0005

== ENCOUNTER 2022-07-20 10:26 | Inpatient (IN) | payer MEDICARE, OTHER ==
[2022-07-20] MEDS ORDERED: Albuterol Sulfate 2.5 mg/3 ml Neb ONE (10:40)
[2022-07-20 10:51] LABS: Actual Bicarbonate (HCO3a) 36.9 mEq/L (22-28); Analyzer IN Cardio ER; Base Excess (BEa) 11.5 mEq/L (-2.0 to +3.0); Carboxyhemoglobin (COHb) 1.4 gm% (0.0-3.0); Hemoglobin (Hb) 11.8 g/dL (14.0-18.0); Potassium - ABG Lab 3.73 mmol/L (3.70-5.30); pH, Arterial 7.47 (7.35-7.45)
[2022-07-20 11:15] LABS: O2 Tension (PaO2), arterial 49.8 mmHg (> 80.0); Puncture Site LRA
[2022-07-20] MEDS ORDERED: Furosemide 40 MG/4 ML VIAL ONE (11:27)
[2022-07-20] MEDS ORDERED: Magnesium 2 GM/50 ML BAG (IN WATER) ONE (11:27)
[2022-07-20] MEDS ORDERED: Dexamethasone 4 mg/ml Vial ONE (11:27)
[2022-07-20 11:29] LABS: Bacteria/HPF 2+ HPF (None Seen); Bilirubin Negative (Negative); Blood, Urine Negative (Negative); Clarity Turbid (Clear); Glucose, Urine (Dipstick) Normal (Negative); Ketone, Urine Negative (Negative); Leukocyte Negative Leu/uL (Negative); Nitrite 1+ (Negative); Protein, Urine (Dipstick) Negative (Neg-Trace); RBC/HPF 0-3 HPF (0-3); Specific Gravity, Urine 1.006 (1.002-1.036); Squamous Epithelial None Seen HPF (0-3); Urobilinogen Normal mg/dL (Less than 2); pH, Urine 7.5 (5.0-9.0)
[2022-07-20 11:31] LABS: #Eosinphils 0.7 thou/uL (0.0-0.7); #Lymphocytes 1.9 thou/uL (1.20-3.40); #Monocytes 0.7 thou/uL (0.11-0.59); #Neutrophils 7.7 thou/uL (1.40-6.50); %Basophils 0.2 % (0.0-1.0); %Eosinophils 6.8 % (0.0-10.0); %Lymphocytes 17.3 % (21.0-51.0); %Monocytes 6.6 % (0.0-10.0); %Neutrophils 69.1 % (42.0-75.0); Hemoglobin 11.5 g/dL (14.0-18.0); Mean Corpuscular HGB CONC 30.3 g/dL (32.0-36.0); Mean Corpuscular Hemoglobin 29.5 pg (27.0-31.0); Mean Corpuscular Volume 97.6 fL (78.0-98.0); Mean Platelet Volume 7.3 fL (7.4-10.4); Platelet Count 366 thou/uL (130-400); RBC Distribution Width 15.9 % (11.5-14.5); Red Blood Cell (RBC) Count 3.88 mill/uL (4.70-6.10); White Blood Cell (WBC) Count 11.1 thou/uL (4.8-10.8)
[2022-07-20 11:51] LABS: ALT (SGPT) 10 U/L (8-55); AST (SGOT) 16 U/L (5-34); Albumin 3.7 g/dL (3.4-4.8); Alkaline Phosphatase 123 U/L (40-110); Anion Gap 13 mmol/L (10-20); BUN (Urea Nitrogen) 10 mg/dL (8.4-25.7); Bilirubin, Total 0.7 mg/dL (0.2-1.2); CK (CPK) 231 U/L (30-200); Calc. Creatinine Clearance 0 mL/min (70-130); Calcium 9.1 mg/dL (7.8-10.44); Carbon Dioxide 37 mmol/L (23-31); Chloride 96 mmol/L (98-107); Estimated GFR 95; Globulin 2.7 g/dL (2.4-3.5); Glucose 96 mg/dL (80-115); Lipase 11 U/L (8-78); Protein, Total 6.4 g/dL (5.8-8.1); Sodium 142 mmol/L (136-145)
[2022-07-20] MEDS ORDERED: Ondansetron PF 4 MG/2 ML Vial IVP PRN (12:38)
[2022-07-20] MEDS ORDERED: Ondansetron ODT 4 MG TAB PO PRN (12:38)
[2022-07-20] MEDS ORDERED: Calcium Carbonate 500 MG ChewTAB PO PRN (12:38)
[2022-07-20] MEDS ORDERED: Acetaminophen 325 MG TAB PO PRN (12:38)
[2022-07-20] MEDS ORDERED: Benzonatate 100 MG CAP PO PRN (12:41)
[2022-07-20] MEDS: Gabapentin 300 MG CAP PO SCH ×2 (14:03→22:02)
[2022-07-20] MEDS: busPIRone HCl 10 MG TAB PO SCH ×2 (14:03→22:02)
[2022-07-20] MEDS: Ipratropium Bromide 2.5 ml Neb NEB SCH ×2 (14:18→19:39)
[2022-07-20 14:29] LABS: Lactic Acid 2.7 mmol/L (0.5-2.2)
[2022-07-20 15:07] VITALS: BMI 33.3
[2022-07-20] MEDS ORDERED: Metolazone 5 MG TAB PO SCH (17:00)
[2022-07-20] MEDS: methylPREDNISolone Sod Succ 40 MG VIAL IVP SCH (18:00)
[2022-07-20] MEDS: Furosemide 40 MG/4 ML VIAL SLOW IVP SCH (22:02)
[2022-07-20] MEDS: Apixaban 5 MG TAB PO SCH (22:02)
[2022-07-20] MEDS: Amiodarone 200 MG TAB PO SCH (22:02)
[2022-07-20] MEDS: Allopurinol 100 MG TAB PO SCH (22:02)
[2022-07-21] MEDS: methylPREDNISolone Sod Succ 40 MG VIAL IVP SCH ×2 (00:46→06:42)
[2022-07-21 04:39] LABS: #Lymphocytes 0.6 thou/uL (1.20-3.40); #Monocytes 0.1 thou/uL (0.11-0.59); #Neutrophils 7.6 thou/uL (1.40-6.50); %Basophils 0.2 % (0.0-1.0); %Eosinophils 0.2 % (0.0-10.0); %Lymphocytes 6.9 % (21.0-51.0); %Monocytes 1.2 % (0.0-10.0); %Neutrophils 91.6 % (42.0-75.0); Hemoglobin 10.9 g/dL (14.0-18.0); Mean Corpuscular HGB CONC 30.2 g/dL (32.0-36.0); Mean Corpuscular Hemoglobin 29.2 pg (27.0-31.0); Mean Corpuscular Volume 96.9 fl (78.0-98.0); Mean Platelet Volume 7.3 fL (7.4-10.4); Platelet Count 364 thou/uL (130-400); RBC Distribution Width 15.8 % (11.5-14.5); Red Blood Cell (RBC) Count 3.74 mill/uL (4.70-6.10); White Blood Cell (WBC) Count 8.3 thou/uL (4.8-10.8)
[2022-07-21 05:18] LABS: ALT (SGPT) 8 U/L (8-55); AST (SGOT) 13 U/L (5-34); Albumin 3.3 g/dL (3.4-4.8); Alkaline Phosphatase 111 U/L (40-110); Anion Gap 15 mmol/L (10-20); BUN (Urea Nitrogen) 15 mg/dL (8.4-25.7); Bilirubin, Total 0.5 mg/dL (0.2-1.2); Calc. Creatinine Clearance 98 mL/min (70-130); Calcium 8.8 mg/dL (7.8-10.44); Carbon Dioxide 33 mmol/L (23-31); Chloride 96 mmol/L (98-107); Estimated GFR 82; Globulin 2.7 g/dL (2.4-3.5); Glucose 186 mg/dL (80-115); Magnesium 2.1 mg/dL (1.6-2.6); Potassium 3.9 mmol/L (3.5-5.1); Sodium 140 mmol/L (136-145)
[2022-07-21] MEDS: Ipratropium Bromide 2.5 ml Neb NEB SCH ×4 (08:21→18:50)
[2022-07-21] MEDS ORDERED: Furosemide 40 MG/4 ML VIAL SLOW IVP SCH (09:00)
[2022-07-21] MEDS ORDERED: Amlodipine 10 MG TAB PO SCH (09:00)
[2022-07-21] MEDS: Amiodarone 200 MG TAB PO SCH ×2 (09:51→22:53)
[2022-07-21] MEDS: busPIRone HCl 10 MG TAB PO SCH ×3 (09:51→22:52)
[2022-07-21] MEDS: Apixaban 5 MG TAB PO SCH ×2 (09:51→22:53)
[2022-07-21] MEDS: Gabapentin 300 MG CAP PO SCH ×3 (09:52→22:52)
[2022-07-21] MEDS: Furosemide 40 MG/4 ML VIAL SLOW IVP SCH ×2 (09:52→22:53)
[2022-07-21] MEDS: Thiamine 100 MG TAB PO SCH (09:52)
[2022-07-21] MEDS: Allopurinol 100 MG TAB PO SCH ×2 (09:52→22:53)
[2022-07-22 04:02] LABS: #Lymphocytes 0.8 thou/uL (1.20-3.40); #Monocytes 0.5 thou/uL (0.11-0.59); #Neutrophils 9.5 thou/uL (1.40-6.50); %Basophils 0.3 % (0.0-1.0); %Eosinophils 0.2 % (0.0-10.0); %Lymphocytes 7.5 % (21.0-51.0); %Monocytes 4.8 % (0.0-10.0); %Neutrophils 87.2 % (42.0-75.0); Hemoglobin 11.9 g/dL (14.0-18.0); Mean Corpuscular HGB CONC 30.5 g/dL (32.0-36.0); Mean Corpuscular Hemoglobin 29.3 pg (27.0-31.0); Mean Platelet Volume 7.6 fL (7.4-10.4); Platelet Count 389 thou/uL (130-400); Red Blood Cell (RBC) Count 4.08 mill/uL (4.70-6.10); White Blood Cell (WBC) Count 10.9 thou/uL (4.8-10.8)
[2022-07-22 04:57] LABS: Anion Gap 14 mmol/L (10-20); BUN (Urea Nitrogen) 19 mg/dL (8.4-25.7); Calc. Creatinine Clearance 113 mL/min (70-130); Carbon Dioxide 36 mmol/L (23-31); Chloride 94 mmol/L (98-107); Estimated GFR 95; Glucose 145 mg/dL (80-115); Magnesium 2.1 mg/dL (1.6-2.6); Potassium 3.1 mmol/L (3.5-5.1); Sodium 141 mmol/L (136-145)
[2022-07-22] MEDS: Ipratropium Bromide 2.5 ml Neb NEB SCH ×4 (07:01→19:00)
[2022-07-22] MEDS ORDERED: Potassium Chloride 20 MEQ TAB PO SCH (08:00)
[2022-07-22] MEDS: Thiamine 100 MG TAB PO SCH (09:33)
[2022-07-22] MEDS: Gabapentin 300 MG CAP PO SCH ×3 (09:33→20:51)
[2022-07-22] MEDS: Metoprolol Tartrate 25 MG TAB PO SCH ×2 (09:33→20:51)
[2022-07-22] MEDS: busPIRone HCl 10 MG TAB PO SCH ×3 (09:33→20:51)
[2022-07-22] MEDS: Allopurinol 100 MG TAB PO SCH ×2 (09:33→20:51)
[2022-07-22] MEDS: Amiodarone 200 MG TAB PO SCH ×2 (09:34→20:51)
[2022-07-22] MEDS: Furosemide 40 MG/4 ML VIAL SLOW IVP SCH ×2 (09:34→20:51)
[2022-07-22] MEDS: Apixaban 5 MG TAB PO SCH ×2 (09:34→20:51)
[2022-07-22] MEDS: Cefepime 1 GM in Sodium Chloride 0.9% 100 ML IVPB SCH (12:54)
[2022-07-23] MEDS: Cefepime 1 GM in Sodium Chloride 0.9% 100 ML IVPB SCH ×2 (00:37→11:28)
[2022-07-23 04:27] LABS: Anion Gap 13 mmol/L (10-20); BUN (Urea Nitrogen) 21 mg/dL (8.4-25.7); Calc. Creatinine Clearance 114 mL/min (70-130); Calcium 8.5 mg/dL (7.8-10.44); Carbon Dioxide 37 mmol/L (23-31); Chloride 95 mmol/L (98-107); Estimated GFR 96; Glucose 100 mg/dL (80-115); Sodium 142 mmol/L (136-145)
[2022-07-23] MEDS: Ipratropium Bromide 2.5 ml Neb NEB SCH ×4 (07:33→18:26)
[2022-07-23] MEDS: Thiamine 100 MG TAB PO SCH (07:50)
[2022-07-23] MEDS: Amiodarone 200 MG TAB PO SCH ×2 (07:50→20:42)
[2022-07-23] MEDS: Furosemide 40 MG/4 ML VIAL SLOW IVP SCH (07:50)
[2022-07-23] MEDS: Apixaban 5 MG TAB PO SCH ×2 (07:50→20:42)
[2022-07-23] MEDS: busPIRone HCl 10 MG TAB PO SCH ×3 (07:50→20:42)
[2022-07-23] MEDS: Metoprolol Tartrate 25 MG TAB PO SCH ×2 (07:50→20:42)
[2022-07-23] MEDS: Gabapentin 300 MG CAP PO SCH ×3 (07:50→20:43)
[2022-07-23] MEDS: Allopurinol 100 MG TAB PO SCH ×2 (07:50→20:42)
[2022-07-23] MEDS ORDERED: Potassium Chloride 20 MEQ TAB PO SCH ×2 (08:15→14:00)
[2022-07-23] MEDS ORDERED: Spironolactone 25 MG TAB PO SCH (08:30)
[2022-07-24] MEDS: Cefepime 1 GM in Sodium Chloride 0.9% 100 ML IVPB SCH ×2 (00:13→10:58)
[2022-07-24 03:50] VITALS: BP 99/64
[2022-07-24 04:28] LABS: Anion Gap 11 mmol/L (10-20); BUN (Urea Nitrogen) 15 mg/dL (8.4-25.7); Calc. Creatinine Clearance 117 mL/min (70-130); Calcium 8.5 mg/dL (7.8-10.44); Carbon Dioxide 37 mmol/L (23-31); Chloride 95 mmol/L (98-107); Estimated GFR 98; Glucose 109 mg/dL (80-115); Potassium 3.8 mmol/L (3.5-5.1); Sodium 139 mmol/L (136-145)
[2022-07-24] MEDS: Ipratropium Bromide 2.5 ml Neb NEB SCH ×3 (06:19→13:56)
[2022-07-24 07:36] VITALS: TEMP 97.7
[2022-07-24] MEDS: Apixaban 5 MG TAB PO SCH (07:58)
[2022-07-24] MEDS: Allopurinol 100 MG TAB PO SCH (07:58)
[2022-07-24] MEDS: Thiamine 100 MG TAB PO SCH (07:58)
[2022-07-24] MEDS: Metoprolol Tartrate 25 MG TAB PO SCH (07:58)
[2022-07-24] MEDS: busPIRone HCl 10 MG TAB PO SCH (07:58)
[2022-07-24] MEDS: Gabapentin 300 MG CAP PO SCH (07:58)
[2022-07-24] MEDS: Amiodarone 200 MG TAB PO SCH (07:58)
[2022-07-24] MEDS ORDERED: Spironolactone 25 MG TAB PO SCH (08:00)
[2022-07-24] MEDS ORDERED: Furosemide 20 MG TAB PO SCH (09:00)
== END 2022-07-24 15:52 | disposition home health service (06) | DRG 291 ==
LOC: ERS 10:26 → SUATTDRO 10:26 → IMCU/EMU 13:22
PROVIDERS: ADMIT Internal Medicine; ATTEND Family Medicine
PROC: 5A09357 Assistance with Respiratory Ventilation, Less than 24 Consecutive Hours, Continuous Positive Airway Pressure (ICD-10-PCS; principal; 2022-07-20)
DX: I11.0 Hypertensive heart disease with heart failure (principal); I50.33 Acute on chronic diastolic (congestive) heart failure; J96.21 Acute and chronic respiratory failure with hypoxia; J96.22 Acute and chronic respiratory failure with hypercapnia; J44.1 Chronic obstructive pulmonary disease with (acute) exacerbation; G82.20 Paraplegia, unspecified; N39.0 Urinary tract infection, site not specified; E78.5 Hyperlipidemia, unspecified; F17.210 Nicotine dependence, cigarettes, uncomplicated; F10.10 Alcohol abuse, uncomplicated; I25.10 Atherosclerotic heart disease of native coronary artery without angina pectoris; Z96.642 Presence of left artificial hip joint; F32.A Depression, unspecified; F41.9 Anxiety disorder, unspecified; M10.9 Gout, unspecified; I48.0 Paroxysmal atrial fibrillation; Z88.0 Allergy status to penicillin; Z79.01 Long term (current) use of anticoagulants; Z88.5 Allergy status to narcotic agent; Z98.890 Other specified postprocedural states; Z79.51 Long term (current) use of inhaled steroids; Z79.899 Other long term (current) drug therapy
CPT/HCPCS: 36415; 36600; 71045; 71046; 80048; 80053; 81003; 81015; 82550; 82805; 83605; 83690; 83735; 83880; 84484; 85025; 87040; 87077; 87086; 87186; 93005; 94640; 94644; 94660; 97139; J0692; J1100; J1940; J1956; J2920; J3475; J3490; J7611; J7620

== ENCOUNTER 2022-08-10 10:18 | Outpatient (CLI) | payer MEDICARE, OTHER | END 2022-08-10 10:19 | disposition home or self-care (01) | LOC: RAD 10:18 | PROVIDERS: ATTEND Internal Medicine Critical Care Medicine | DX: R06.00 Dyspnea, unspecified (principal) | CPT/HCPCS: 71046 ==

== ENCOUNTER 2022-10-11 20:43 | Inpatient (IN) | payer OTHER ==
[2022-10-11 22:09] LABS: Anion Gap 13 mmol/L (10-20); BUN (Urea Nitrogen) 13 mg/dL (8.4-25.7); Calc. Creatinine Clearance 0 mL/min (70-130); Carbon Dioxide 25 mmol/L (23-31); Chloride 87 mmol/L (98-107); Potassium 4.4 mmol/L (3.5-5.1); Sodium 121 mmol/L (136-145)
[2022-10-11 22:10] LABS: ALT (SGPT) 10 U/L (8-55); AST (SGOT) 13 U/L (5-34); Albumin 3.5 g/dL (3.4-4.8); Alkaline Phosphatase 84 U/L (40-110); Bilirubin, Total 0.5 mg/dL (0.2-1.2); Calcium 8.6 mg/dL (7.8-10.44); Estimated GFR 74; Globulin 1.9 g/dL (2.4-3.5); Glucose 98 mg/dL (80-115); Protein, Total 5.4 g/dL (5.8-8.1)
[2022-10-11] MEDS ORDERED: Cepastat Lozenges 1 LOZ PO PRN (23:44)
[2022-10-11] MEDS ORDERED: Ondansetron ODT 4 MG TAB PO PRN (23:44)
[2022-10-11] MEDS ORDERED: Ondansetron PF 4 MG/2 ML Vial IVP PRN (23:44)
[2022-10-12] MEDS ORDERED: cefTRIAXone\\ROCEPHIN 1 GM in Sodium Chloride 0.9% 100 ML IVPB SCH (01:00)
[2022-10-12] MEDS: Ipratropium/Albuterol 3 ML NEB NEB SCH ×4 (02:32→19:06)
[2022-10-12] MEDS ORDERED: Azithromycin 500 MG VIAL ONE (02:56)
[2022-10-12] MEDS ORDERED: Cefepime 1 GM in Sodium Chloride 0.9% 100 ML IVPB SCH (03:00)
[2022-10-12] MEDS: Azithromycin 500 MG in Sodium Chloride 0.9% 250 ML 250 ML IVPB SCH (03:03)
[2022-10-12] MEDS ORDERED: Cefepime 2 GM VIAL ONE (04:07)
[2022-10-12 05:20] LABS: #Eosinphils 0.3 thou/uL (0.0-0.7); #Lymphocytes 0.5 thou/uL (1.20-3.40); #Monocytes 0.6 thou/uL (0.11-0.59); #Neutrophils 8.4 thou/uL (1.40-6.50); %Basophils 0.2 % (0.0-1.0); %Eosinophils 2.9 % (0.0-10.0); %Lymphocytes 5.3 % (21.0-51.0); %Monocytes 6.5 % (0.0-10.0); %Neutrophils 85.1 % (42.0-75.0); Hemoglobin 9.8 g/dL (14.0-18.0); Mean Corpuscular HGB CONC 32.8 g/dL (32.0-36.0); Mean Corpuscular Hemoglobin 29.2 pg (27.0-31.0); Mean Corpuscular Volume 88.9 fl (78.0-98.0); Mean Platelet Volume 7.4 fL (7.4-10.4); Platelet Count 341 10x3/uL (130-400); RBC Distribution Width 16.1 % (11.5-14.5); Red Blood Cell (RBC) Count 3.35 mill/uL (4.70-6.10); White Blood Cell (WBC) Count 9.9 10x3/uL (4.8-10.8)
[2022-10-12 05:33] LABS: Anion Gap 12 mmol/L (10-20); BUN (Urea Nitrogen) 12 mg/dL (8.4-25.7); Calc. Creatinine Clearance 0 mL/min (70-130); Calcium 8.5 mg/dL (7.8-10.44); Carbon Dioxide 24 mmol/L (23-31); Chloride 88 mmol/L (98-107); Estimated GFR 82; Glucose 86 mg/dL (80-115); Sodium 120 mmol/L (136-145)
[2022-10-12 06:57] LABS: Anion Gap 11 mmol/L (10-20); BUN (Urea Nitrogen) 11 mg/dL (8.4-25.7); Calc. Creatinine Clearance 0 mL/min (70-130); Calcium 8.5 mg/dL (7.8-10.44); Carbon Dioxide 25 mmol/L (23-31); Chloride 88 mmol/L (98-107); Estimated GFR 94; Glucose 83 mg/dL (80-115); Potassium 4.1 mmol/L (3.5-5.1); Sodium 120 mmol/L (136-145)
[2022-10-12] MEDS ORDERED: Non-Formulary Item 1 EACH (Albuterol Sulfate [Proair Digihaler] 90 MCG Aer.Pw.Bas) IH PRN (07:53)
[2022-10-12] MEDS ORDERED: Ipratropium/Albuterol 3 ML NEB ONE (08:00)
[2022-10-12] MEDS: Allopurinol 100 MG TAB PO SCH ×2 (08:38→20:43)
[2022-10-12] MEDS: guaiFENesin ER 600 MG TAB PO SCH ×2 (08:39→20:43)
[2022-10-12] MEDS: Magnesium Oxide 400 MG TAB PO SCH (08:39)
[2022-10-12] MEDS: Bumetanide 1 MG TAB PO SCH ×2 (08:39→20:43)
[2022-10-12] MEDS: Sodium Chloride 1 GM TAB PO SCH ×3 (08:39→20:43)
[2022-10-12] MEDS: Apixaban 5 MG TAB PO SCH ×2 (08:39→20:43)
[2022-10-12] MEDS: Spironolactone 25 MG TAB PO SCH (08:39)
[2022-10-12] MEDS: busPIRone HCl 10 MG TAB PO SCH ×3 (08:39→20:43)
[2022-10-12] MEDS ORDERED: Potassium Chloride 20 MEQ TAB ONE (08:43)
[2022-10-12] MEDS: Potassium Chloride 20 MEQ TAB PO SCH (08:51)
[2022-10-12] MEDS ORDERED: Non-Formulary Item 1 EACH (Magnesium [Magnesium] 200 MG Tablet) PO SCH (09:00)
[2022-10-12] MEDS ORDERED: POTASSIUM CHLORIDE 20 MEQ/15 ML PO SCH (09:00)
[2022-10-12] MEDS ORDERED: Ipratropium/Albuterol 3 ML NEB NEB PRN (09:19)
[2022-10-12 11:44] LABS: Legionella Urinary Ag Negative (Negative); Strep pneumo Urine Ag NEGATIVE (NEGATIVE)
[2022-10-12 12:23] LABS: Anion Gap 13 mmol/L (10-20); BUN (Urea Nitrogen) 11 mg/dL (8.4-25.7); Calc. Creatinine Clearance 0 mL/min (70-130); Calcium 8.7 mg/dL (7.8-10.44); Carbon Dioxide 25 mmol/L (23-31); Chloride 88 mmol/L (98-107); Estimated GFR 83; Glucose 89 mg/dL (80-115); Potassium 4.4 mmol/L (3.5-5.1); Sodium 122 mmol/L (136-145)
[2022-10-12] MEDS: Gabapentin 300 MG CAP PO SCH ×2 (15:41→20:42)
[2022-10-12] MEDS: Cefepime 2 GM in Sodium Chloride 0.9% 100 ML IVPB SCH (15:41)
[2022-10-12 15:53] LABS: Anion Gap 14 mmol/L (10-20); BUN (Urea Nitrogen) 10 mg/dL (8.4-25.7); Calc. Creatinine Clearance 87 mL/min (70-130); Calcium 8.8 mg/dL (7.8-10.44); Carbon Dioxide 25 mmol/L (23-31); Chloride 87 mmol/L (98-107); Estimated GFR 82; Glucose 89 mg/dL (80-115); Potassium 4.3 mmol/L (3.5-5.1); Sodium 122 mmol/L (136-145)
[2022-10-12] MEDS: Benzonatate 100 MG CAP PO PRN (20:47)
[2022-10-13] MEDS: Ipratropium/Albuterol 3 ML NEB NEB SCH ×5 (00:01→23:14)
[2022-10-13] MEDS: Azithromycin 500 MG in Sodium Chloride 0.9% 250 ML 250 ML IVPB SCH (02:39)
[2022-10-13] MEDS: Cefepime 2 GM in Sodium Chloride 0.9% 100 ML IVPB SCH ×2 (03:45→14:24)
[2022-10-13 04:43] LABS: #Eosinphils 0.2 thou/uL (0.0-0.7); #Lymphocytes 0.8 thou/uL (1.20-3.40); #Monocytes 0.8 thou/uL (0.11-0.59); #Neutrophils 6.4 thou/uL (1.40-6.50); %Eosinophils 2.5 % (0.0-10.0); %Lymphocytes 9.6 % (21.0-51.0); %Monocytes 9.3 % (0.0-10.0); %Neutrophils 78.6 % (42.0-75.0); Hemoglobin 10.6 g/dL (14.0-18.0); Mean Corpuscular HGB CONC 32.7 g/dL (32.0-36.0); Mean Corpuscular Hemoglobin 29.5 pg (27.0-31.0); Mean Corpuscular Volume 90.3 fl (78.0-98.0); Mean Platelet Volume 7.7 fL (7.4-10.4); Platelet Count 351 10x3/uL (130-400); RBC Distribution Width 16.2 % (11.5-14.5); Red Blood Cell (RBC) Count 3.59 mill/uL (4.70-6.10); White Blood Cell (WBC) Count 8.1 10x3/uL (4.8-10.8)
[2022-10-13 05:03] LABS: Anion Gap 13 mmol/L (10-20); BUN (Urea Nitrogen) 9 mg/dL (8.4-25.7); Calc. Creatinine Clearance 87 mL/min (70-130); Calcium 8.9 mg/dL (7.8-10.44); Carbon Dioxide 26 mmol/L (23-31); Chloride 91 mmol/L (98-107); Estimated GFR 82; Glucose 87 mg/dL (80-115); Potassium 3.7 mmol/L (3.5-5.1); Sodium 126 mmol/L (136-145)
[2022-10-13] MEDS: Gabapentin 300 MG CAP PO SCH ×3 (09:23→21:06)
[2022-10-13] MEDS: guaiFENesin ER 600 MG TAB PO SCH ×2 (09:23→21:06)
[2022-10-13] MEDS: busPIRone HCl 10 MG TAB PO SCH ×3 (09:23→21:06)
[2022-10-13] MEDS: Cyanocobalamin (Vitamin B-12) 1,000 MCG TAB PO SCH (09:23)
[2022-10-13] MEDS: Bumetanide 1 MG TAB PO SCH ×2 (09:23→21:06)
[2022-10-13] MEDS: Apixaban 5 MG TAB PO SCH ×2 (09:24→21:06)
[2022-10-13] MEDS: Spironolactone 25 MG TAB PO SCH (09:24)
[2022-10-13] MEDS: Allopurinol 100 MG TAB PO SCH ×2 (09:24→21:06)
[2022-10-13] MEDS: Potassium Chloride 20 MEQ TAB PO SCH (09:24)
[2022-10-13] MEDS: Magnesium Oxide 400 MG TAB PO SCH (09:24)
[2022-10-13] MEDS: Sodium Chloride 1 GM TAB PO SCH ×3 (09:24→21:06)
[2022-10-13] MEDS: Benzonatate 100 MG CAP PO PRN (21:07)
[2022-10-14] MEDS: Cefepime 2 GM in Sodium Chloride 0.9% 100 ML IVPB SCH ×2 (03:18→14:07)
[2022-10-14] MEDS: Azithromycin 500 MG in Sodium Chloride 0.9% 250 ML 250 ML IVPB SCH (03:23)
[2022-10-14 05:13] LABS: #Eosinphils 0.4 thou/uL (0.0-0.7); #Neutrophils 7.6 thou/uL (1.40-6.50); %Basophils 0.4 % (0.0-1.0); %Eosinophils 4.1 % (0.0-10.0); %Lymphocytes 9.5 % (21.0-51.0); %Monocytes 10.1 % (0.0-10.0); %Neutrophils 75.9 % (42.0-75.0); Hemoglobin 10.7 g/dL (14.0-18.0); Mean Corpuscular HGB CONC 32.4 g/dL (32.0-36.0); Mean Corpuscular Hemoglobin 29.5 pg (27.0-31.0); Mean Platelet Volume 7.4 fL (7.4-10.4); Platelet Count 361 10x3/uL (130-400); RBC Distribution Width 16.2 % (11.5-14.5); Red Blood Cell (RBC) Count 3.63 mill/uL (4.70-6.10)
[2022-10-14 05:24] LABS: Anion Gap 10 mmol/L (10-20); BUN (Urea Nitrogen) 11 mg/dL (8.4-25.7); Calc. Creatinine Clearance 86 mL/min (70-130); Calcium 9.1 mg/dL (7.8-10.44); Carbon Dioxide 30 mmol/L (23-31); Chloride 91 mmol/L (98-107); Estimated GFR 81; Glucose 103 mg/dL (80-115); Potassium 3.6 mmol/L (3.5-5.1); Sodium 127 mmol/L (136-145)
[2022-10-14] MEDS ORDERED: Sodium Chloride 1 GM TAB PO SCH (06:15)
[2022-10-14] MEDS: Ipratropium/Albuterol 3 ML NEB NEB SCH ×4 (07:35→23:07)
[2022-10-14] MEDS: Bumetanide 1 MG TAB PO SCH ×2 (09:42→20:38)
[2022-10-14] MEDS: Spironolactone 25 MG TAB PO SCH (09:42)
[2022-10-14] MEDS: Allopurinol 100 MG TAB PO SCH ×2 (09:42→20:39)
[2022-10-14] MEDS: Apixaban 5 MG TAB PO SCH ×2 (09:42→20:39)
[2022-10-14] MEDS: Magnesium Oxide 400 MG TAB PO SCH (09:42)
[2022-10-14] MEDS: guaiFENesin ER 600 MG TAB PO SCH ×2 (09:42→20:39)
[2022-10-14] MEDS: busPIRone HCl 10 MG TAB PO SCH ×3 (09:42→20:38)
[2022-10-14] MEDS: Gabapentin 300 MG CAP PO SCH ×3 (09:42→20:38)
[2022-10-14] MEDS: Cyanocobalamin (Vitamin B-12) 1,000 MCG TAB PO SCH (09:42)
[2022-10-14] MEDS: Potassium Chloride 20 MEQ TAB PO SCH (09:42)
[2022-10-14] MEDS: methylPREDNISolone Sod Succ 40 MG VIAL IVP SCH ×2 (14:06→20:38)
[2022-10-14] MEDS: Sodium Chloride 1 GM TAB PO SCH ×2 (14:08→20:38)
[2022-10-14] MEDS ORDERED: Chloraseptic Spray 180 ml Bottle PO PRN (15:18)
[2022-10-15] MEDS: Azithromycin 500 MG in Sodium Chloride 0.9% 250 ML 250 ML IVPB SCH (02:17)
[2022-10-15] MEDS: Acetaminophen 325 MG TAB PO PRN (02:29)
[2022-10-15] MEDS: Cefepime 2 GM in Sodium Chloride 0.9% 100 ML IVPB SCH (02:29)
[2022-10-15 05:22] LABS: #Lymphocytes 0.6 thou/uL (1.20-3.40); #Monocytes 0.2 thou/uL (0.11-0.59); %Basophils 0.2 % (0.0-1.0); %Eosinophils 0.2 % (0.0-10.0); %Lymphocytes 5.3 % (21.0-51.0); %Monocytes 1.4 % (0.0-10.0); Hemoglobin 10.9 g/dL (14.0-18.0); Mean Corpuscular HGB CONC 32.1 g/dL (32.0-36.0); Mean Corpuscular Hemoglobin 29.3 pg (27.0-31.0); Mean Corpuscular Volume 91.2 fl (78.0-98.0); Mean Platelet Volume 7.9 fL (7.4-10.4); Platelet Count 418 10x3/uL (130-400); RBC Distribution Width 16.4 % (11.5-14.5); Red Blood Cell (RBC) Count 3.73 mill/uL (4.70-6.10); White Blood Cell (WBC) Count 11.8 10x3/uL (4.8-10.8)
[2022-10-15 05:43] LABS: Anion Gap 14 mmol/L (10-20); BUN (Urea Nitrogen) 17 mg/dL (8.4-25.7); Calc. Creatinine Clearance 70 mL/min (70-130); Calcium 8.7 mg/dL (7.8-10.44); Carbon Dioxide 25 mmol/L (23-31); Chloride 90 mmol/L (98-107); Estimated GFR 64; Glucose 158 mg/dL (80-115); Potassium 4.1 mmol/L (3.5-5.1); Sodium 125 mmol/L (136-145)
[2022-10-15] MEDS: methylPREDNISolone Sod Succ 40 MG VIAL IVP SCH (06:28)
[2022-10-15] MEDS: Ipratropium/Albuterol 3 ML NEB NEB SCH ×3 (07:24→18:37)
[2022-10-15] MEDS: Apixaban 5 MG TAB PO SCH ×2 (09:21→20:55)
[2022-10-15] MEDS: Sodium Chloride 1 GM TAB PO SCH ×3 (09:21→20:55)
[2022-10-15] MEDS: Spironolactone 25 MG TAB PO SCH (09:21)
[2022-10-15] MEDS: Magnesium Oxide 400 MG TAB PO SCH (09:21)
[2022-10-15] MEDS: Cyanocobalamin (Vitamin B-12) 1,000 MCG TAB PO SCH (09:21)
[2022-10-15] MEDS: Allopurinol 100 MG TAB PO SCH ×2 (09:21→20:55)
[2022-10-15] MEDS: busPIRone HCl 10 MG TAB PO SCH ×3 (09:21→20:55)
[2022-10-15] MEDS: Gabapentin 300 MG CAP PO SCH ×3 (09:21→20:55)
[2022-10-15] MEDS: Potassium Chloride 20 MEQ TAB PO SCH (09:22)
[2022-10-15] MEDS: guaiFENesin ER 600 MG TAB PO SCH ×2 (09:22→20:55)
[2022-10-15] MEDS ORDERED: Lorazepam 0.5 MG TAB PO SCH (15:15)
[2022-10-15 16:12] LABS: Troponin I Less than 0.010 ng/mL (< 0.028)
[2022-10-15] MEDS ORDERED: Metoprolol Tartrate 5 MG/5 ML VIAL IVP SCH (18:15)
[2022-10-15] MEDS: AcetaZOLAMIDE 250 MG TAB PO SCH (20:54)
[2022-10-15] MEDS: Metoprolol Tartrate 25 MG TAB PO SCH (20:55)
[2022-10-16] MEDS: Ipratropium/Albuterol 3 ML NEB NEB SCH ×4 (00:41→18:25)
[2022-10-16 04:34] LABS: #Lymphocytes 1.2 thou/uL (1.20-3.40); #Monocytes 0.9 thou/uL (0.11-0.59); #Neutrophils 9.2 thou/uL (1.40-6.50); %Basophils 0.1 % (0.0-1.0); %Lymphocytes 10.4 % (21.0-51.0); %Monocytes 7.8 % (0.0-10.0); %Neutrophils 81.7 % (42.0-75.0); Hemoglobin 11.1 g/dL (14.0-18.0); Mean Corpuscular Hemoglobin 29.4 pg (27.0-31.0); Mean Corpuscular Volume 91.9 fl (78.0-98.0); Mean Platelet Volume 7.5 fL (7.4-10.4); Platelet Count 440 10x3/uL (130-400); RBC Distribution Width 16.3 % (11.5-14.5); Red Blood Cell (RBC) Count 3.78 mill/uL (4.70-6.10); White Blood Cell (WBC) Count 11.2 10x3/uL (4.8-10.8)
[2022-10-16 04:55] LABS: Anion Gap 13 mmol/L (10-20); BUN (Urea Nitrogen) 15 mg/dL (8.4-25.7); Calc. Creatinine Clearance 87 mL/min (70-130); Calcium 9.7 mg/dL (7.8-10.44); Carbon Dioxide 25 mmol/L (23-31); Chloride 96 mmol/L (98-107); Estimated GFR 82; Glucose 130 mg/dL (80-115); Potassium 4.3 mmol/L (3.5-5.1); Sodium 130 mmol/L (136-145)
[2022-10-16] MEDS: AcetaZOLAMIDE 250 MG TAB PO SCH (08:52)
[2022-10-16] MEDS: busPIRone HCl 10 MG TAB PO SCH ×3 (08:53→20:36)
[2022-10-16] MEDS: Apixaban 5 MG TAB PO SCH ×2 (08:53→20:36)
[2022-10-16] MEDS: Allopurinol 100 MG TAB PO SCH ×2 (08:53→20:35)
[2022-10-16] MEDS: Cyanocobalamin (Vitamin B-12) 1,000 MCG TAB PO SCH (08:54)
[2022-10-16] MEDS: Folic Acid 1 MG TAB PO SCH (08:54)
[2022-10-16] MEDS: Gabapentin 300 MG CAP PO SCH ×3 (08:54→20:36)
[2022-10-16] MEDS: Magnesium Oxide 400 MG TAB PO SCH (08:55)
[2022-10-16] MEDS: guaiFENesin ER 600 MG TAB PO SCH ×2 (08:55→20:36)
[2022-10-16] MEDS: Metoprolol Tartrate 25 MG TAB PO SCH ×3 (08:55→20:36)
[2022-10-16] MEDS: Sodium Chloride 1 GM TAB PO SCH ×3 (08:56→20:36)
[2022-10-16] MEDS: Multivit, Therapeutic 1 TAB PO SCH (08:56)
[2022-10-16] MEDS: Potassium Chloride 20 MEQ TAB PO SCH (08:56)
[2022-10-16] MEDS: Spironolactone 25 MG TAB PO SCH (08:56)
[2022-10-16] MEDS: Thiamine 100 MG TAB PO SCH (08:56)
[2022-10-17] MEDS: Ipratropium/Albuterol 3 ML NEB NEB SCH ×5 (00:43→23:50)
[2022-10-17] MEDS: Potassium Chloride 20 MEQ TAB PO SCH (10:43)
[2022-10-17] MEDS: Gabapentin 300 MG CAP PO SCH ×3 (10:43→21:19)
[2022-10-17] MEDS: busPIRone HCl 10 MG TAB PO SCH ×3 (10:43→21:18)
[2022-10-17] MEDS: Multivit, Therapeutic 1 TAB PO SCH (10:43)
[2022-10-17] MEDS: Sodium Chloride 1 GM TAB PO SCH ×3 (10:44→21:19)
[2022-10-17] MEDS: Allopurinol 100 MG TAB PO SCH ×2 (10:44→21:18)
[2022-10-17] MEDS: Metoprolol Tartrate 25 MG TAB PO SCH ×3 (10:44→21:19)
[2022-10-17] MEDS: guaiFENesin ER 600 MG TAB PO SCH ×2 (10:44→21:19)
[2022-10-17] MEDS: Folic Acid 1 MG TAB PO SCH (10:44)
[2022-10-17] MEDS: Bumetanide 1 MG TAB PO SCH ×2 (10:44→21:18)
[2022-10-17] MEDS: Apixaban 5 MG TAB PO SCH ×2 (10:44→21:18)
[2022-10-17] MEDS: Spironolactone 25 MG TAB PO SCH (10:44)
[2022-10-17] MEDS: Cyanocobalamin (Vitamin B-12) 1,000 MCG TAB PO SCH (10:44)
[2022-10-17] MEDS: Magnesium Oxide 400 MG TAB PO SCH (10:45)
[2022-10-17] MEDS: Thiamine 100 MG TAB PO SCH (10:45)
[2022-10-18] MEDS: Ipratropium/Albuterol 3 ML NEB NEB SCH ×4 (06:38→23:34)
[2022-10-18] MEDS: Bumetanide 1 MG TAB PO SCH ×2 (09:29→21:48)
[2022-10-18] MEDS: guaiFENesin ER 600 MG TAB PO SCH ×2 (09:30→21:48)
[2022-10-18] MEDS: Allopurinol 100 MG TAB PO SCH ×2 (09:30→21:48)
[2022-10-18] MEDS: Apixaban 5 MG TAB PO SCH ×2 (09:30→21:48)
[2022-10-18] MEDS: Sodium Chloride 1 GM TAB PO SCH ×3 (09:30→21:48)
[2022-10-18] MEDS: Metoprolol Tartrate 25 MG TAB PO SCH ×2 (09:30→14:47)
[2022-10-18] MEDS: Multivit, Therapeutic 1 TAB PO SCH (09:30)
[2022-10-18] MEDS: Magnesium Oxide 400 MG TAB PO SCH (09:30)
[2022-10-18] MEDS: Folic Acid 1 MG TAB PO SCH (09:30)
[2022-10-18] MEDS: Gabapentin 300 MG CAP PO SCH ×3 (09:30→21:47)
[2022-10-18] MEDS: Spironolactone 25 MG TAB PO SCH (09:30)
[2022-10-18] MEDS: Cyanocobalamin (Vitamin B-12) 1,000 MCG TAB PO SCH (09:30)
[2022-10-18] MEDS: Potassium Chloride 20 MEQ TAB PO SCH (09:30)
[2022-10-18] MEDS: Thiamine 100 MG TAB PO SCH (09:31)
[2022-10-18] MEDS: busPIRone HCl 10 MG TAB PO SCH ×3 (09:31→21:48)
[2022-10-18] MEDS: Ergocalciferol 1.25 MG(50,000 UNITS) CAP PO SCH (09:33)
[2022-10-18] MEDS ORDERED: Dronedarone HCl 400 MG TAB PO SCH (14:15)
[2022-10-18] MEDS: Benzonatate 100 MG CAP PO PRN (21:48)
[2022-10-18] MEDS: Dronedarone HCl 400 MG TAB PO SCH (21:48)
[2022-10-19 04:54] LABS: #Eosinphils 0.6 thou/uL (0.0-0.7); #Lymphocytes 2.5 thou/uL (1.20-3.40); #Monocytes 0.8 thou/uL (0.11-0.59); #Neutrophils 9.1 thou/uL (1.40-6.50); %Basophils 0.2 % (0.0-1.0); %Eosinophils 4.3 % (0.0-10.0); %Lymphocytes 19.5 % (21.0-51.0); %Monocytes 6.5 % (0.0-10.0); %Neutrophils 69.6 % (42.0-75.0); Hemoglobin 11.3 g/dL (14.0-18.0); Mean Corpuscular HGB CONC 31.4 g/dL (32.0-36.0); Mean Corpuscular Hemoglobin 29.1 pg (27.0-31.0); Mean Corpuscular Volume 92.8 fl (78.0-98.0); Mean Platelet Volume 7.6 fL (7.4-10.4); Platelet Count 426 10x3/uL (130-400); RBC Distribution Width 16.6 % (11.5-14.5)
[2022-10-19 05:20] LABS: Anion Gap 12 mmol/L (10-20); BUN (Urea Nitrogen) 32 mg/dL (8.4-25.7); Calc. Creatinine Clearance 79 mL/min (70-130); Calcium 9.6 mg/dL (7.8-10.44); Carbon Dioxide 27 mmol/L (23-31); Chloride 98 mmol/L (98-107); Estimated GFR 73; Glucose 112 mg/dL (80-115); Potassium 4.2 mmol/L (3.5-5.1); Sodium 133 mmol/L (136-145)
[2022-10-19] MEDS: Ipratropium/Albuterol 3 ML NEB NEB SCH ×4 (06:57→23:21)
[2022-10-19] MEDS: Multivit, Therapeutic 1 TAB PO SCH (09:47)
[2022-10-19] MEDS: busPIRone HCl 10 MG TAB PO SCH ×3 (09:47→21:08)
[2022-10-19] MEDS: Magnesium Oxide 400 MG TAB PO SCH (09:47)
[2022-10-19] MEDS: guaiFENesin ER 600 MG TAB PO SCH (09:47)
[2022-10-19] MEDS: Apixaban 5 MG TAB PO SCH ×2 (09:47→21:08)
[2022-10-19] MEDS: Gabapentin 300 MG CAP PO SCH ×3 (09:47→21:08)
[2022-10-19] MEDS: Thiamine 100 MG TAB PO SCH (09:48)
[2022-10-19] MEDS: Dronedarone HCl 400 MG TAB PO SCH ×2 (09:48→21:07)
[2022-10-19] MEDS: Sodium Chloride 1 GM TAB PO SCH ×3 (09:48→21:08)
[2022-10-19] MEDS: Folic Acid 1 MG TAB PO SCH (09:48)
[2022-10-19] MEDS: Spironolactone 25 MG TAB PO SCH (09:48)
[2022-10-19] MEDS: Cyanocobalamin (Vitamin B-12) 1,000 MCG TAB PO SCH (09:48)
[2022-10-19] MEDS: Allopurinol 100 MG TAB PO SCH ×2 (09:48→21:07)
[2022-10-19] MEDS: Potassium Chloride 20 MEQ TAB PO SCH (11:45)
[2022-10-19] MEDS: guaiFENesin/Codeine 200 mg/20 mg 10 ml Cup PO PRN (17:45)
[2022-10-19] MEDS ORDERED: guaiFENesin/Codeine 200 mg/20 mg 10 ml Cup PO SCH (21:00)
[2022-10-19] MEDS: Benzonatate 100 MG CAP PO SCH (21:08)
[2022-10-20 05:36] LABS: Anion Gap 14 mmol/L (10-20); BUN (Urea Nitrogen) 46 mg/dL (8.4-25.7); Calc. Creatinine Clearance 68 mL/min (70-130); Calcium 9.9 mg/dL (7.8-10.44); Carbon Dioxide 27 mmol/L (23-31); Chloride 97 mmol/L (98-107); Estimated GFR 60; Glucose 117 mg/dL (80-115); Potassium 4.4 mmol/L (3.5-5.1); Sodium 134 mmol/L (136-145)
[2022-10-20] MEDS: Ipratropium/Albuterol 3 ML NEB NEB SCH ×4 (07:28→23:45)
[2022-10-20] MEDS: Allopurinol 100 MG TAB PO SCH ×2 (08:33→23:39)
[2022-10-20] MEDS: Apixaban 5 MG TAB PO SCH ×2 (08:33→22:46)
[2022-10-20] MEDS: Benzonatate 100 MG CAP PO SCH ×3 (08:34→23:39)
[2022-10-20] MEDS: Bumetanide 1 MG TAB PO SCH (08:34)
[2022-10-20] MEDS: Gabapentin 300 MG CAP PO SCH ×3 (08:34→23:39)
[2022-10-20] MEDS: Folic Acid 1 MG TAB PO SCH (08:34)
[2022-10-20] MEDS: Cyanocobalamin (Vitamin B-12) 1,000 MCG TAB PO SCH (08:34)
[2022-10-20] MEDS: busPIRone HCl 10 MG TAB PO SCH ×3 (08:34→23:39)
[2022-10-20] MEDS: Dronedarone HCl 400 MG TAB PO SCH ×2 (08:34→22:45)
[2022-10-20] MEDS: Thiamine 100 MG TAB PO SCH (08:35)
[2022-10-20] MEDS: Spironolactone 25 MG TAB PO SCH (08:35)
[2022-10-20] MEDS: Multivit, Therapeutic 1 TAB PO SCH (08:35)
[2022-10-20] MEDS: Sodium Chloride 1 GM TAB PO SCH ×3 (08:35→22:46)
[2022-10-20] MEDS: Magnesium Oxide 400 MG TAB PO SCH (08:35)
[2022-10-20] MEDS: guaiFENesin/Codeine 200 mg/20 mg 10 ml Cup PO PRN ×2 (08:36→16:39)
[2022-10-20 17:23] LABS: Actual Bicarbonate (HCO3a) 29.6 mEq/L (22-28); Base Excess (BEa) 5.2 mEq/L (-2.0 to +3.0); CO2 Tension 42.7 mmHg (35.0-45.0); Calcium, Ionized (arterial) 1.23 mmol/L (1.12-1.30); Carboxyhemoglobin (COHb) 0.1 gm% (0.0-3.0); Hemoglobin (Hb) 12.1 g/dL (14.0-18.0); O2 Tension (PaO2), arterial 69.8 mmHg (> 80.0); Potassium - ABG Lab 4.44 mmol/L (3.70-5.30); pH, Arterial 7.46 (7.35-7.45)
[2022-10-20 17:25] LABS: ALV-art Gradient 104.985 mmHg (0-20); Puncture Site RBA
[2022-10-20] MEDS: Acetaminophen 325 MG TAB PO PRN (20:25)
[2022-10-20 20:36] LABS: #Eosinphils 0.5 thou/uL (0.0-0.7); #Lymphocytes 1.4 thou/uL (1.20-3.40); #Monocytes 0.9 thou/uL (0.11-0.59); #Neutrophils 15.2 thou/uL (1.40-6.50); %Basophils 0.1 % (0.0-1.0); %Eosinophils 2.5 % (0.0-10.0); %Lymphocytes 7.8 % (21.0-51.0); %Neutrophils 84.6 % (42.0-75.0); Hemoglobin 11.4 g/dL (14.0-18.0); Mean Corpuscular HGB CONC 32.9 g/dL (32.0-36.0); Mean Corpuscular Hemoglobin 30.1 pg (27.0-31.0); Mean Corpuscular Volume 91.3 fl (78.0-98.0); Mean Platelet Volume 7.6 fL (7.4-10.4); Platelet Count 409 10x3/uL (130-400); RBC Distribution Width 16.8 % (11.5-14.5); Red Blood Cell (RBC) Count 3.79 mill/uL (4.70-6.10)
[2022-10-20 20:43] LABS: Actual Bicarbonate (HCO3a) 28.5 mEq/L (22-28); CO2 Tension 42.4 mmHg (35.0-45.0); Calcium, Ionized (arterial) 1.22 mmol/L (1.12-1.30); Carboxyhemoglobin (COHb) 0.4 gm% (0.0-3.0); O2 Tension (PaO2), arterial 67.1 mmHg (> 80.0); Potassium - ABG Lab 4.65 mmol/L (3.70-5.30); pH, Arterial 7.45 (7.35-7.45)
[2022-10-20 20:45] LABS: Puncture Site LRA
[2022-10-20 20:53] LABS: Lactic Acid 1.3 mmol/L (0.5-2.2)
[2022-10-20 20:59] LABS: Anion Gap 14 mmol/L (10-20); BUN (Urea Nitrogen) 48 mg/dL (8.4-25.7); Calc. Creatinine Clearance 65 mL/min (70-130); Calcium 9.8 mg/dL (7.8-10.44); Carbon Dioxide 28 mmol/L (23-31); Chloride 97 mmol/L (98-107); Estimated GFR 58; Glucose 114 mg/dL (80-115); Magnesium 2.3 mg/dL (1.6-2.6); Potassium 4.8 mmol/L (3.5-5.1); Sodium 134 mmol/L (136-145)
[2022-10-20] MEDS ORDERED: Sodium Chloride 0.9% 1,000 ML IV SCH ×2 (21:30)
[2022-10-20] MEDS: Cefepime 1 GM in Sodium Chloride 0.9% 100 ML IVPB SCH (22:45)
[2022-10-21] MEDS ORDERED: VANCOMYCIN 1.75 GM/500 ML BAG 1.75 GM in Premix Bag 1 BAG IVPB SCH (01:00)
[2022-10-21] MEDS: guaiFENesin/Codeine 200 mg/20 mg 10 ml Cup PO PRN ×3 (03:27→21:17)
[2022-10-21] MEDS: Acetaminophen 325 MG TAB PO PRN (06:05)
[2022-10-21] MEDS: Ipratropium/Albuterol 3 ML NEB NEB SCH ×4 (07:19→23:24)
[2022-10-21] MEDS ORDERED: Vancomycin 1 GM in Premix Bag 1 BAG IVPB SCH (09:00)
[2022-10-21] MEDS: Apixaban 5 MG TAB PO SCH ×2 (09:23→21:22)
[2022-10-21] MEDS: Dronedarone HCl 400 MG TAB PO SCH ×2 (09:23→21:22)
[2022-10-21] MEDS: busPIRone HCl 10 MG TAB PO SCH ×3 (09:23→21:22)
[2022-10-21] MEDS: Folic Acid 1 MG TAB PO SCH (09:23)
[2022-10-21] MEDS: Benzonatate 100 MG CAP PO SCH ×3 (09:23→21:22)
[2022-10-21] MEDS: Gabapentin 300 MG CAP PO SCH ×4 (09:23→21:21)
[2022-10-21] MEDS: Allopurinol 100 MG TAB PO SCH ×2 (09:23→21:22)
[2022-10-21] MEDS: Cyanocobalamin (Vitamin B-12) 1,000 MCG TAB PO SCH (09:23)
[2022-10-21] MEDS: Magnesium Oxide 400 MG TAB PO SCH (09:24)
[2022-10-21] MEDS: Sodium Chloride 1 GM TAB PO SCH ×3 (09:24→21:22)
[2022-10-21] MEDS: Spironolactone 25 MG TAB PO SCH (09:24)
[2022-10-21] MEDS: Multivit, Therapeutic 1 TAB PO SCH (09:24)
[2022-10-21] MEDS: Cefepime 1 GM in Sodium Chloride 0.9% 100 ML IVPB SCH (09:25)
[2022-10-21] MEDS: Thiamine 100 MG TAB PO SCH (09:25)
[2022-10-21 10:01] LABS: #Eosinphils 0.7 thou/uL (0.0-0.7); #Lymphocytes 1.3 thou/uL (1.20-3.40); #Monocytes 0.9 thou/uL (0.11-0.59); #Neutrophils 11.7 thou/uL (1.40-6.50); %Basophils 0.3 % (0.0-1.0); %Eosinophils 4.5 % (0.0-10.0); %Lymphocytes 8.9 % (21.0-51.0); %Monocytes 6.1 % (0.0-10.0); %Neutrophils 80.2 % (42.0-75.0); Hemoglobin 10.1 g/dL (14.0-18.0); Mean Corpuscular HGB CONC 30.9 g/dL (32.0-36.0); Mean Corpuscular Hemoglobin 28.6 pg (27.0-31.0); Mean Corpuscular Volume 92.7 fl (78.0-98.0); Mean Platelet Volume 8.7 fL (7.4-10.4); Platelet Count 395 10x3/uL (130-400); RBC Distribution Width 16.6 % (11.5-14.5); Red Blood Cell (RBC) Count 3.54 mill/uL (4.70-6.10); White Blood Cell (WBC) Count 14.6 10x3/uL (4.8-10.8)
[2022-10-21 10:21] LABS: Albumin 3.4 g/dL (3.4-4.8); Anion Gap 14 mmol/L (10-20); BUN (Urea Nitrogen) 45 mg/dL (8.4-25.7); BUN/Creatinine Ratio 37.19; Calc. Creatinine Clearance 73 mL/min (70-130); Calcium 9.4 mg/dL (7.8-10.44); Carbon Dioxide 25 mmol/L (23-31); Chloride 99 mmol/L (98-107); Estimated GFR 66; Glucose 82 mg/dL (80-115); Phosphorus 3.5 mg/dL (2.3-4.7); Potassium 4.5 mmol/L (3.5-5.1); Sodium 133 mmol/L (136-145)
[2022-10-21] MEDS: Cefepime 2 GM in Sodium Chloride 0.9% 100 ML IVPB SCH (21:18)
[2022-10-22 05:11] LABS: #Basophils 0.1 thou/uL (0.0-0.2); #Eosinphils 0.5 thou/uL (0.0-0.7); #Monocytes 0.8 thou/uL (0.11-0.59); #Neutrophils 9.4 thou/uL (1.40-6.50); %Basophils 0.5 % (0.0-1.0); %Eosinophils 4.4 % (0.0-10.0); %Lymphocytes 8.6 % (21.0-51.0); %Monocytes 7.1 % (0.0-10.0); %Neutrophils 79.4 % (42.0-75.0); Hemoglobin 10.5 g/dL (14.0-18.0); Mean Corpuscular HGB CONC 32.1 g/dL (32.0-36.0); Mean Corpuscular Volume 93.5 fl (78.0-98.0); Mean Platelet Volume 7.7 fL (7.4-10.4); Platelet Count 415 10x3/uL (130-400); RBC Distribution Width 16.5 % (11.5-14.5); Red Blood Cell (RBC) Count 3.49 mill/uL (4.70-6.10); White Blood Cell (WBC) Count 11.8 10x3/uL (4.8-10.8)
[2022-10-22 05:13] LABS: Anion Gap 11 mmol/L (10-20); BUN (Urea Nitrogen) 41 mg/dL (8.4-25.7); CRP (Inflammatory) 8.88 mg/dL (= or < 0.5); Calc. Creatinine Clearance 96 mL/min (70-130); Calcium 9.6 mg/dL (7.8-10.44); Carbon Dioxide 26 mmol/L (23-31); Chloride 104 mmol/L (98-107); Estimated GFR 91; Glucose 92 mg/dL (80-115); Potassium 4.5 mmol/L (3.5-5.1); Sodium 136 mmol/L (136-145)
[2022-10-22] MEDS: guaiFENesin/Codeine 200 mg/20 mg 10 ml Cup PO PRN (05:38)
[2022-10-22] MEDS: Acetaminophen 325 MG TAB PO PRN ×2 (05:39→18:51)
[2022-10-22] MEDS: Ipratropium/Albuterol 3 ML NEB NEB SCH ×3 (07:05→18:19)
[2022-10-22] MEDS: Multivit, Therapeutic 1 TAB PO SCH (08:51)
[2022-10-22] MEDS: Benzonatate 100 MG CAP PO SCH ×3 (08:51→21:04)
[2022-10-22] MEDS: Cefepime 2 GM in Sodium Chloride 0.9% 100 ML IVPB SCH ×2 (08:51→21:04)
[2022-10-22] MEDS: Allopurinol 100 MG TAB PO SCH ×2 (08:51→21:04)
[2022-10-22] MEDS: Gabapentin 300 MG CAP PO SCH ×3 (08:51→21:03)
[2022-10-22] MEDS: Cyanocobalamin (Vitamin B-12) 1,000 MCG TAB PO SCH (08:52)
[2022-10-22] MEDS: Dronedarone HCl 400 MG TAB PO SCH ×2 (08:52→21:04)
[2022-10-22] MEDS: Sodium Chloride 1 GM TAB PO SCH ×3 (08:52→21:03)
[2022-10-22] MEDS: Magnesium Oxide 400 MG TAB PO SCH (08:52)
[2022-10-22] MEDS: Thiamine 100 MG TAB PO SCH (08:52)
[2022-10-22] MEDS: Apixaban 5 MG TAB PO SCH ×2 (08:52→21:03)
[2022-10-22] MEDS: busPIRone HCl 10 MG TAB PO SCH ×3 (08:52→21:04)
[2022-10-22] MEDS: Folic Acid 1 MG TAB PO SCH (08:52)
[2022-10-22] MEDS ORDERED: Lidocaine Jelly 2% Urojet 10 ML ONE (12:28)
[2022-10-23] MEDS: Ipratropium/Albuterol 3 ML NEB NEB SCH ×4 (00:19→18:15)
[2022-10-23] MEDS: Thiamine 100 MG TAB PO SCH (09:05)
[2022-10-23] MEDS: Gabapentin 300 MG CAP PO SCH ×3 (09:05→21:11)
[2022-10-23] MEDS: Dronedarone HCl 400 MG TAB PO SCH ×2 (09:05→21:11)
[2022-10-23] MEDS: Bumetanide 1 MG TAB PO SCH (09:05)
[2022-10-23] MEDS: Cefepime 2 GM in Sodium Chloride 0.9% 100 ML IVPB SCH ×2 (09:05→22:05)
[2022-10-23] MEDS: Benzonatate 100 MG CAP PO SCH ×3 (09:05→21:11)
[2022-10-23] MEDS: busPIRone HCl 10 MG TAB PO SCH ×3 (09:06→21:11)
[2022-10-23] MEDS: Folic Acid 1 MG TAB PO SCH (09:06)
[2022-10-23] MEDS: Apixaban 5 MG TAB PO SCH ×2 (09:06→21:11)
[2022-10-23] MEDS: Cyanocobalamin (Vitamin B-12) 1,000 MCG TAB PO SCH (09:06)
[2022-10-23] MEDS: Multivit, Therapeutic 1 TAB PO SCH (09:06)
[2022-10-23] MEDS: Sodium Chloride 1 GM TAB PO SCH ×3 (09:06→21:12)
[2022-10-23] MEDS: Magnesium Oxide 400 MG TAB PO SCH (09:06)
[2022-10-23] MEDS: Allopurinol 100 MG TAB PO SCH ×2 (09:06→21:11)
[2022-10-23] MEDS: guaiFENesin/Codeine 200 mg/20 mg 10 ml Cup PO PRN (11:45)
[2022-10-24] MEDS: Ipratropium/Albuterol 3 ML NEB NEB SCH ×4 (00:09→18:29)
[2022-10-24 04:34] LABS: #Eosinphils 0.5 thou/uL (0.0-0.7); #Lymphocytes 1.5 thou/uL (1.20-3.40); #Monocytes 0.8 thou/uL (0.11-0.59); %Basophils 0.4 % (0.0-1.0); %Eosinophils 4.6 % (0.0-10.0); %Lymphocytes 13.8 % (21.0-51.0); %Monocytes 7.5 % (0.0-10.0); %Neutrophils 73.7 % (42.0-75.0); Mean Corpuscular HGB CONC 32.6 g/dL (32.0-36.0); Mean Corpuscular Hemoglobin 29.9 pg (27.0-31.0); Mean Corpuscular Volume 91.7 fl (78.0-98.0); Mean Platelet Volume 8.1 fL (7.4-10.4); Platelet Count 388 10x3/uL (130-400); RBC Distribution Width 16.7 % (11.5-14.5); Red Blood Cell (RBC) Count 3.36 mill/uL (4.70-6.10); White Blood Cell (WBC) Count 10.9 10x3/uL (4.8-10.8)
[2022-10-24 04:55] LABS: Anion Gap 12 mmol/L (10-20); BUN (Urea Nitrogen) 36 mg/dL (8.4-25.7); Calc. Creatinine Clearance 98 mL/min (70-130); Calcium 9.4 mg/dL (7.8-10.44); Carbon Dioxide 24 mmol/L (23-31); Chloride 103 mmol/L (98-107); Estimated GFR 94; Glucose 111 mg/dL (80-115); Potassium 4.2 mmol/L (3.5-5.1); Sodium 135 mmol/L (136-145)
[2022-10-24] MEDS: Cyanocobalamin (Vitamin B-12) 1,000 MCG TAB PO SCH (08:47)
[2022-10-24] MEDS: Folic Acid 1 MG TAB PO SCH (08:47)
[2022-10-24] MEDS: Multivit, Therapeutic 1 TAB PO SCH (08:47)
[2022-10-24] MEDS: busPIRone HCl 10 MG TAB PO SCH ×3 (08:47→21:53)
[2022-10-24] MEDS: Gabapentin 300 MG CAP PO SCH ×3 (08:47→21:54)
[2022-10-24] MEDS: Benzonatate 100 MG CAP PO SCH ×3 (08:47→21:54)
[2022-10-24] MEDS: Bumetanide 1 MG TAB PO SCH (08:47)
[2022-10-24] MEDS: Thiamine 100 MG TAB PO SCH (08:48)
[2022-10-24] MEDS: Sodium Chloride 1 GM TAB PO SCH ×3 (08:48→21:53)
[2022-10-24] MEDS: Allopurinol 100 MG TAB PO SCH ×2 (08:48→21:54)
[2022-10-24] MEDS: Apixaban 5 MG TAB PO SCH ×2 (08:48→21:53)
[2022-10-24] MEDS: Magnesium Oxide 400 MG TAB PO SCH (08:49)
[2022-10-24] MEDS: Dronedarone HCl 400 MG TAB PO SCH ×2 (08:49→21:54)
[2022-10-24] MEDS: Cefepime 2 GM in Sodium Chloride 0.9% 100 ML IVPB SCH ×2 (08:49→21:54)
[2022-10-24] MEDS: Sulfameth/Trimethoprim DS 800-160mg TAB PO SCH (21:54)
[2022-10-25] MEDS: Ipratropium/Albuterol 3 ML NEB NEB SCH ×4 (00:08→18:13)
[2022-10-25] MEDS: Ergocalciferol 1.25 MG(50,000 UNITS) CAP PO SCH (08:24)
[2022-10-25] MEDS: Benzonatate 100 MG CAP PO SCH ×3 (08:24→20:39)
[2022-10-25] MEDS: Bumetanide 1 MG TAB PO SCH (08:24)
[2022-10-25] MEDS: Gabapentin 300 MG CAP PO SCH ×3 (08:24→20:39)
[2022-10-25] MEDS: busPIRone HCl 10 MG TAB PO SCH ×3 (08:25→20:39)
[2022-10-25] MEDS: Folic Acid 1 MG TAB PO SCH (08:25)
[2022-10-25] MEDS: Dronedarone HCl 400 MG TAB PO SCH ×2 (08:25→20:38)
[2022-10-25] MEDS: Apixaban 5 MG TAB PO SCH ×2 (08:25→20:39)
[2022-10-25] MEDS: Cyanocobalamin (Vitamin B-12) 1,000 MCG TAB PO SCH (08:25)
[2022-10-25] MEDS: Sulfameth/Trimethoprim DS 800-160mg TAB PO SCH ×2 (08:25→20:38)
[2022-10-25] MEDS: Sodium Chloride 1 GM TAB PO SCH ×3 (08:25→20:39)
[2022-10-25] MEDS: Multivit, Therapeutic 1 TAB PO SCH (08:26)
[2022-10-25] MEDS: Thiamine 100 MG TAB PO SCH (08:26)
[2022-10-25] MEDS: Magnesium Oxide 400 MG TAB PO SCH (08:26)
[2022-10-25] MEDS: Allopurinol 100 MG TAB PO SCH ×2 (08:26→20:39)
[2022-10-25] MEDS: Cefepime 2 GM in Sodium Chloride 0.9% 100 ML IVPB SCH ×2 (08:26→20:39)
[2022-10-25] MEDS: Acetaminophen 325 MG TAB PO PRN (14:28)
[2022-10-25] MEDS ORDERED: Calcium Carbonate 500 MG ChewTAB PO PRN (19:53)
[2022-10-26] MEDS: Ipratropium/Albuterol 3 ML NEB NEB SCH ×5 (00:12→23:57)
[2022-10-26] MEDS: guaiFENesin/Codeine 200 mg/20 mg 10 ml Cup PO PRN ×2 (05:01→21:15)
[2022-10-26 05:20] LABS: #Basophils 0.1 thou/uL (0.0-0.2); #Eosinphils 0.7 thou/uL (0.0-0.7); #Lymphocytes 1.6 thou/uL (1.20-3.40); #Monocytes 0.8 thou/uL (0.11-0.59); #Neutrophils 8.7 thou/uL (1.40-6.50); %Basophils 0.7 % (0.0-1.0); %Eosinophils 5.7 % (0.0-10.0); %Lymphocytes 13.6 % (21.0-51.0); %Monocytes 6.3 % (0.0-10.0); %Neutrophils 73.7 % (42.0-75.0); Hemoglobin 10.1 g/dL (14.0-18.0); Mean Corpuscular HGB CONC 31.3 g/dL (32.0-36.0); Mean Corpuscular Hemoglobin 28.9 pg (27.0-31.0); Mean Corpuscular Volume 92.6 fl (78.0-98.0); Mean Platelet Volume 7.8 fL (7.4-10.4); Platelet Count 384 10x3/uL (130-400); RBC Distribution Width 16.5 % (11.5-14.5); Red Blood Cell (RBC) Count 3.48 mill/uL (4.70-6.10); White Blood Cell (WBC) Count 11.9 10x3/uL (4.8-10.8)
[2022-10-26 05:58] LABS: Anion Gap 13 mmol/L (10-20); BUN (Urea Nitrogen) 39 mg/dL (8.4-25.7); Calc. Creatinine Clearance 86 mL/min (70-130); Calcium 9.5 mg/dL (7.8-10.44); Carbon Dioxide 23 mmol/L (23-31); Chloride 102 mmol/L (98-107); Estimated GFR 82; Glucose 89 mg/dL (80-115); Potassium 4.3 mmol/L (3.5-5.1); Sodium 134 mmol/L (136-145)
[2022-10-26] MEDS: Folic Acid 1 MG TAB PO SCH (09:15)
[2022-10-26] MEDS: Magnesium Oxide 400 MG TAB PO SCH (09:15)
[2022-10-26] MEDS: Bumetanide 1 MG TAB PO SCH (09:15)
[2022-10-26] MEDS: Benzonatate 100 MG CAP PO SCH ×3 (09:15→21:14)
[2022-10-26] MEDS: Sulfameth/Trimethoprim DS 800-160mg TAB PO SCH ×2 (09:15→21:14)
[2022-10-26] MEDS: Multivit, Therapeutic 1 TAB PO SCH (09:15)
[2022-10-26] MEDS: busPIRone HCl 10 MG TAB PO SCH ×3 (09:15→21:14)
[2022-10-26] MEDS: Apixaban 5 MG TAB PO SCH ×2 (09:15→21:13)
[2022-10-26] MEDS: Gabapentin 300 MG CAP PO SCH ×3 (09:15→21:13)
[2022-10-26] MEDS: Cyanocobalamin (Vitamin B-12) 1,000 MCG TAB PO SCH (09:15)
[2022-10-26] MEDS: Thiamine 100 MG TAB PO SCH (09:15)
[2022-10-26] MEDS: Allopurinol 100 MG TAB PO SCH ×2 (09:15→21:14)
[2022-10-26] MEDS: Dronedarone HCl 400 MG TAB PO SCH ×2 (09:15→21:13)
[2022-10-26] MEDS: Sodium Chloride 1 GM TAB PO SCH ×3 (09:15→21:14)
[2022-10-26] MEDS: Cefepime 2 GM in Sodium Chloride 0.9% 100 ML IVPB SCH ×2 (09:16→21:23)
[2022-10-26] MEDS: Sodium Chloride 0.9% 1,000 ML IV SCH ×2 (15:10→23:15)
[2022-10-26] MEDS ORDERED: Midodrine HCl 5 MG TAB PO SCH (18:15)
[2022-10-26] MEDS ORDERED: traMADol HCl 50 MG TAB PO SCH (21:00)
[2022-10-27] MEDS: Ipratropium/Albuterol 3 ML NEB NEB SCH ×4 (06:30→23:36)
[2022-10-27] MEDS: Cefepime 2 GM in Sodium Chloride 0.9% 100 ML IVPB SCH ×2 (09:40→20:57)
[2022-10-27] MEDS: Gabapentin 300 MG CAP PO SCH ×3 (09:40→20:16)
[2022-10-27] MEDS: Apixaban 5 MG TAB PO SCH ×2 (09:41→20:16)
[2022-10-27] MEDS: Dronedarone HCl 400 MG TAB PO SCH ×2 (09:41→20:17)
[2022-10-27] MEDS: busPIRone HCl 10 MG TAB PO SCH ×3 (09:41→20:16)
[2022-10-27] MEDS: Sodium Chloride 1 GM TAB PO SCH ×3 (09:41→20:17)
[2022-10-27] MEDS: Benzonatate 100 MG CAP PO SCH ×3 (09:42→20:17)
[2022-10-27] MEDS: Cyanocobalamin (Vitamin B-12) 1,000 MCG TAB PO SCH (09:42)
[2022-10-27] MEDS: Magnesium Oxide 400 MG TAB PO SCH (09:42)
[2022-10-27] MEDS: Sulfameth/Trimethoprim DS 800-160mg TAB PO SCH ×2 (09:42→20:17)
[2022-10-27] MEDS: Folic Acid 1 MG TAB PO SCH (09:42)
[2022-10-27] MEDS: Allopurinol 100 MG TAB PO SCH ×2 (09:42→20:16)
[2022-10-27] MEDS: Bumetanide 1 MG TAB PO SCH (09:42)
[2022-10-27] MEDS: Thiamine 100 MG TAB PO SCH (09:42)
[2022-10-27] MEDS: Multivit, Therapeutic 1 TAB PO SCH (09:42)
[2022-10-27] MEDS: traMADol HCl 50 MG TAB PO PRN ×2 (11:23→18:41)
[2022-10-27 14:54] VITALS: BMI 29.2
[2022-10-27] MEDS: guaiFENesin/Codeine 200 mg/20 mg 10 ml Cup PO PRN (20:14)
[2022-10-28] MEDS: traMADol HCl 50 MG TAB PO PRN ×3 (01:52→19:46)
[2022-10-28] MEDS: Acetaminophen 325 MG TAB PO PRN (05:41)
[2022-10-28] MEDS: guaiFENesin/Codeine 200 mg/20 mg 10 ml Cup PO PRN ×2 (05:41→19:44)
[2022-10-28] MEDS: Ipratropium/Albuterol 3 ML NEB NEB SCH ×3 (06:53→18:47)
[2022-10-28] MEDS: Sulfameth/Trimethoprim DS 800-160mg TAB PO SCH ×2 (08:28→19:45)
[2022-10-28] MEDS: busPIRone HCl 10 MG TAB PO SCH ×3 (08:28→19:45)
[2022-10-28] MEDS: Benzonatate 100 MG CAP PO SCH ×3 (08:31→19:45)
[2022-10-28] MEDS: Gabapentin 300 MG CAP PO SCH ×3 (08:31→19:45)
[2022-10-28] MEDS: Sodium Chloride 1 GM TAB PO SCH ×3 (08:31→19:55)
[2022-10-28] MEDS: Folic Acid 1 MG TAB PO SCH (08:32)
[2022-10-28] MEDS: Allopurinol 100 MG TAB PO SCH ×2 (08:32→19:45)
[2022-10-28] MEDS: Multivit, Therapeutic 1 TAB PO SCH (08:32)
[2022-10-28] MEDS: Bumetanide 1 MG TAB PO SCH (08:32)
[2022-10-28] MEDS: Thiamine 100 MG TAB PO SCH (08:32)
[2022-10-28] MEDS: Cyanocobalamin (Vitamin B-12) 1,000 MCG TAB PO SCH (08:32)
[2022-10-28] MEDS: Dronedarone HCl 400 MG TAB PO SCH ×2 (08:32→19:45)
[2022-10-28] MEDS: Apixaban 5 MG TAB PO SCH ×2 (08:32→19:44)
[2022-10-28] MEDS: Magnesium Oxide 400 MG TAB PO SCH (08:36)
[2022-10-28] MEDS: Cefepime 2 GM in Sodium Chloride 0.9% 100 ML IVPB SCH ×2 (08:37→21:48)
[2022-10-29] MEDS: Ipratropium/Albuterol 3 ML NEB NEB SCH ×3 (00:52→14:11)
[2022-10-29] MEDS: traMADol HCl 50 MG TAB PO PRN ×3 (01:23→16:08)
[2022-10-29] MEDS: busPIRone HCl 10 MG TAB PO SCH ×2 (09:21→16:15)
[2022-10-29] MEDS: Sulfameth/Trimethoprim DS 800-160mg TAB PO SCH (09:21)
[2022-10-29] MEDS: Multivit, Therapeutic 1 TAB PO SCH (09:21)
[2022-10-29] MEDS: Thiamine 100 MG TAB PO SCH (09:22)
[2022-10-29] MEDS: Cyanocobalamin (Vitamin B-12) 1,000 MCG TAB PO SCH (09:22)
[2022-10-29] MEDS: Gabapentin 300 MG CAP PO SCH ×2 (09:23→16:14)
[2022-10-29] MEDS: Benzonatate 100 MG CAP PO SCH ×2 (09:23→16:15)
[2022-10-29] MEDS: Dronedarone HCl 400 MG TAB PO SCH (09:23)
[2022-10-29] MEDS: Allopurinol 100 MG TAB PO SCH (09:23)
[2022-10-29] MEDS: Apixaban 5 MG TAB PO SCH (09:23)
[2022-10-29] MEDS: Bumetanide 1 MG TAB PO SCH (09:23)
[2022-10-29] MEDS: Cefepime 2 GM in Sodium Chloride 0.9% 100 ML IVPB SCH (09:24)
[2022-10-29] MEDS: Folic Acid 1 MG TAB PO SCH (09:24)
[2022-10-29] MEDS: Magnesium Oxide 400 MG TAB PO SCH (09:24)
[2022-10-29] MEDS: Sodium Chloride 1 GM TAB PO SCH ×2 (09:52→16:14)
[2022-10-29 16:45] VITALS: BP 102/57; TEMP 98.5
[2022-10-29] MEDS ORDERED: Cefdinir 300 MG CAP PO SCH (21:00)
== END 2022-10-29 17:20 | disposition home health service (06) | DRG 177 ==
LOC: ERS 20:43 → 2NO 22:51 → ERHOLD 22:59 → 2NO 10-12 14:55 → OBSVTOIN 10-12 15:41
PROVIDERS: ADMIT Student in an Organized Health Care Education/Training Program; ATTEND Internal Medicine
DX: J69.0 Pneumonitis due to inhalation of food and vomit (principal); J96.21 Acute and chronic respiratory failure with hypoxia; J96.22 Acute and chronic respiratory failure with hypercapnia; N39.0 Urinary tract infection, site not specified; T83.518A Infection and inflammatory reaction due to other urinary catheter, initial encounter; E22.2 Syndrome of inappropriate secretion of antidiuretic hormone; N17.9 Acute kidney failure, unspecified; J44.1 Chronic obstructive pulmonary disease with (acute) exacerbation; J44.0 Chronic obstructive pulmonary disease with (acute) lower respiratory infection; G82.20 Paraplegia, unspecified; I50.32 Chronic diastolic (congestive) heart failure; J15.6 Pneumonia due to other Gram-negative bacteria; I11.0 Hypertensive heart disease with heart failure; I25.10 Atherosclerotic heart disease of native coronary artery without angina pectoris; G47.33 Obstructive sleep apnea (adult) (pediatric); M10.9 Gout, unspecified; E87.71 Transfusion associated circulatory overload; F17.210 Nicotine dependence, cigarettes, uncomplicated; F10.10 Alcohol abuse, uncomplicated; Y84.6 Urinary catheterization as the cause of abnormal reaction of the patient, or of later complication, without mention of misadventure at the time of the procedure; B95.2 Enterococcus as the cause of diseases classified elsewhere; L71.9 Rosacea, unspecified; L89.159 Pressure ulcer of sacral region, unspecified stage; L89.629 Pressure ulcer of left heel, unspecified stage; L89.619 Pressure ulcer of right heel, unspecified stage; Z96.642 Presence of left artificial hip joint; Z88.0 Allergy status to penicillin; Z99.81 Dependence on supplemental oxygen; Z88.8 Allergy status to other drugs, medicaments and biological substances; Z79.01 Long term (current) use of anticoagulants; Z79.51 Long term (current) use of inhaled steroids; Z79.899 Other long term (current) drug therapy; Z74.01 Bed confinement status
CPT/HCPCS: 36415; 36416; 36600; 71045; 80048; 80069; 82040; 82805; 83605; 83735; 83880; 83930; 83935; 84145; 84484; 85025; 86140; 87070; 87077; 87081; 87086; 87186; 87205; 87449; 87899; 93005; 93010; 94640; 97139; G0378; J0456; J0692; J1956; J2001; J2920; J3370; J3490; J7050; J7611; J7620

== ENCOUNTER 2023-01-28 19:47 | Emergency (ER) | payer OTHER ==
[2023-01-28 20:31] LABS: #Basophils 0.1 thou/uL (0.0-0.2); #Eosinphils 0.6 thou/uL (0.0-0.7); #Lymphocytes 1.6 thou/uL (1.20-3.40); #Monocytes 0.7 thou/uL (0.11-0.59); #Neutrophils 6.5 thou/uL (1.40-6.50); %Basophils 0.8 % (0.0-1.0); %Eosinophils 5.9 % (0.0-10.0); %Lymphocytes 16.7 % (21.0-51.0); %Neutrophils 69.6 % (42.0-75.0); Hemoglobin 13.2 g/dL (14.0-18.0); Mean Corpuscular HGB CONC 32.2 g/dL (32.0-36.0); Mean Corpuscular Hemoglobin 30.8 pg (27.0-31.0); Mean Corpuscular Volume 95.6 fl (78.0-98.0); Mean Platelet Volume 7.5 fL (7.4-10.4); Platelet Count 298 10x3/uL (130-400); RBC Distribution Width 14.9 % (11.5-14.5); Red Blood Cell (RBC) Count 4.29 mill/uL (4.70-6.10); White Blood Cell (WBC) Count 9.4 10x3/uL (4.8-10.8)
[2023-01-28 20:51] LABS: ALT (SGPT) 20 U/L (8-55); AST (SGOT) 19 U/L (5-34); Albumin 3.7 g/dL (3.4-4.8); Alkaline Phosphatase 121 U/L (40-110); Anion Gap 14 mmol/L (10-20); BUN (Urea Nitrogen) 20 mg/dL (8.4-25.7); Bilirubin, Total 0.2 mg/dL (0.2-1.2); Calc. Creatinine Clearance 0 mL/min (70-130); Carbon Dioxide 28 mmol/L (23-31); Chloride 96 mmol/L (98-107); Estimated GFR 67; Globulin 2.4 g/dL (2.4-3.5); Glucose 130 mg/dL (80-115); Magnesium 2.3 mg/dL (1.6-2.6); Potassium 4.6 mmol/L (3.5-5.1); Protein, Total 6.1 g/dL (5.8-8.1); Sodium 133 mmol/L (136-145)
== END 2023-01-28 22:13 | disposition home or self-care (01) ==
LOC: ERS 19:47
DX: R00.0 Tachycardia, unspecified (principal); I11.0 Hypertensive heart disease with heart failure; I50.9 Heart failure, unspecified; J44.9 Chronic obstructive pulmonary disease, unspecified; F17.210 Nicotine dependence, cigarettes, uncomplicated
CPT/HCPCS: 71045; 80053; 83735; 84484; 85025

== ENCOUNTER 2023-09-03 12:46 | Emergency (ER) | payer OTHER ==
[2023-09-03] MEDS ORDERED: Acetaminophen 500 MG TAB ONE (13:56)
[2023-09-03] MEDS ORDERED: Iopamidol-370 76% 500 ML MDV (1 ML CHARGE) ONE (13:59)
[2023-09-03 14:26] LABS: #Eosinphils 0.8 thou/uL (0.0-0.7); #Monocytes 0.7 thou/uL (0.11-0.59); #Neutrophils 6.4 thou/uL (1.40-6.50); %Basophils 0.4 % (0.0-1.0); %Lymphocytes 17.1 % (21.0-51.0); %Monocytes 7.1 % (0.0-10.0); %Neutrophils 67.1 % (42.0-75.0); Hematocrit 38.8 % (42.0-52.0); Mean Corpuscular HGB CONC 30.9 g/dL (32.0-36.0); Mean Corpuscular Hemoglobin 30.9 pg (27.0-31.0); Mean Platelet Volume 10.4 fL (7.4-10.4); Platelet Count 297 10x3/uL (130-400); RBC Distribution Width 15.8 % (11.5-14.5); Red Blood Cell (RBC) Count 3.88 mill/uL (4.70-6.10); White Blood Cell (WBC) Count 9.6 10x3/uL (4.8-10.8)
[2023-09-03 14:50] LABS: ALT (SGPT) 20 U/L (8-55); AST (SGOT) 20 U/L (5-34); Albumin 3.8 g/dL (3.4-4.8); Alkaline Phosphatase 133 U/L (40-110); Anion Gap 15 mmol/L (10-20); BUN (Urea Nitrogen) 35 mg/dL (8.4-25.7); Bilirubin, Total 0.6 mg/dL (0.2-1.2); Calc. Creatinine Clearance 0 mL/min (70-130); Carbon Dioxide 32 mmol/L (23-31); Chloride 96 mmol/L (98-107); Estimated GFR 63; Globulin 2.5 g/dL (2.4-3.5); Glucose 112 mg/dL (80-115); Lipase 27 U/L (8-78); Potassium 4.5 mmol/L (3.5-5.1); Protein, Total 6.3 g/dL (5.8-8.1); Sodium 138 mmol/L (136-145)
[2023-09-03 14:53] LABS: Bacteria/HPF None Seen HPF (None Seen); Bilirubin Negative (Negative); Blood, Urine Negative (Negative); CAUTI Indications for Culture Alt mental st,lethar; Clarity Clear (Clear); Glucose, Urine (Dipstick) Normal (Negative); Ketone, Urine Negative (Negative); Leukocyte 25 Leu/uL (Negative); Nitrite Negative (Negative); Protein, Urine (Dipstick) Negative (Neg-Trace); RBC/HPF 0-3 HPF (0-3); Specific Gravity, Urine 1.003 (1.002-1.036); Squamous Epithelial None Seen HPF (0-3); Urobilinogen Normal mg/dL (Less than 2)
[2023-09-03 14:54] LABS: Troponin I Less than 0.010 ng/mL (< 0.028)
[2023-09-03 14:57] LABS: Urine Culture Reflex No No
== END 2023-09-03 17:11 | disposition home or self-care (01) ==
LOC: ERS 12:46
DX: K59.00 Constipation, unspecified (principal); I11.0 Hypertensive heart disease with heart failure; I50.9 Heart failure, unspecified; I48.91 Unspecified atrial fibrillation; J44.9 Chronic obstructive pulmonary disease, unspecified; F17.210 Nicotine dependence, cigarettes, uncomplicated; Z79.82 Long term (current) use of aspirin; Z79.01 Long term (current) use of anticoagulants; Z95.5 Presence of coronary angioplasty implant and graft; Z79.899 Other long term (current) drug therapy
CPT/HCPCS: 36415; 71045; 74177; 80053; 81001; 83605; 83690; 83880; 84484; 85025; 93005; 94760; Q9967

== ENCOUNTER 2023-09-18 23:04 | Emergency (ER) | payer OTHER, MEDICARE | END 2023-09-19 01:40 | disposition home or self-care (01) | LOC: ERS 23:04 | DX: S82.451A Displaced comminuted fracture of shaft of right fibula, initial encounter for closed fracture (principal); S82.101A Unspecified fracture of upper end of right tibia, initial encounter for closed fracture; S80.212A Abrasion, left knee, initial encounter; S80.211A Abrasion, right knee, initial encounter; S40.811A Abrasion of right upper arm, initial encounter; G82.20 Paraplegia, unspecified; I11.0 Hypertensive heart disease with heart failure; I50.9 Heart failure, unspecified; I48.91 Unspecified atrial fibrillation; J44.9 Chronic obstructive pulmonary disease, unspecified; F17.210 Nicotine dependence, cigarettes, uncomplicated; W06.XXXA Fall from bed, initial encounter; Y92.009 Unspecified place in unspecified non-institutional (private) residence as the place of occurrence of the external cause; Z95.0 Presence of cardiac pacemaker; Z79.01 Long term (current) use of anticoagulants; Z79.82 Long term (current) use of aspirin; Z79.899 Other long term (current) drug therapy | CPT/HCPCS: 71045; 93005 ==

== ENCOUNTER 2023-11-18 18:13 | Inpatient (IN) | payer MEDICARE, OTHER ==
[2023-11-18 19:05] LABS: #Eosinphils 0.2 thou/uL (0.0-0.7); #Monocytes 0.5 thou/uL (0.11-0.59); #Neutrophils 8.1 thou/uL (1.40-6.50); %Basophils 0.2 % (0.0-1.0); %Eosinophils 2.3 % (0.0-10.0); %Lymphocytes 6.3 % (21.0-51.0); %Monocytes 5.7 % (0.0-10.0); %Neutrophils 85.1 % (42.0-75.0); Hematocrit 43.6 % (42.0-52.0); Hemoglobin 12.7 g/dL (14.0-18.0); Mean Corpuscular HGB CONC 29.1 g/dL (32.0-36.0); Mean Corpuscular Hemoglobin 30.8 pg (27.0-31.0); Mean Corpuscular Volume 105.6 fl (78.0-98.0); Mean Platelet Volume 9.6 fL (7.4-10.4); Platelet Count 265 10x3/uL (130-400); RBC Distribution Width 14.6 % (11.5-14.5); Red Blood Cell (RBC) Count 4.13 mill/uL (4.70-6.10); White Blood Cell (WBC) Count 9.5 10x3/uL (4.8-10.8)
[2023-11-18 19:35] LABS: ALT (SGPT) 54 U/L (8-55); AST (SGOT) 68 U/L (5-34); Albumin 4.1 g/dL (3.4-4.8); Alkaline Phosphatase 219 U/L (40-110); BUN (Urea Nitrogen) 42 mg/dL (8.4-25.7); Bilirubin, Total 0.7 mg/dL (0.2-1.2); Calc. Creatinine Clearance 0 mL/min (70-130); Calcium 9.6 mg/dL (7.8-10.44); Estimated GFR 43; Globulin 2.9 g/dL (2.4-3.5); Glucose 98 mg/dL (80-115); Lipase 14 U/L (8-78); Magnesium 3.4 mg/dL (1.6-2.6)
[2023-11-18 19:44] LABS: Anion Gap 18 mmol/L (10-20); Carbon Dioxide 34 mmol/L (23-31); Chloride 92 mmol/L (98-107); Potassium 4.8 mmol/L (3.5-5.1); Sodium 139 mmol/L (136-145)
[2023-11-18] MEDS ORDERED: Etomidate 40 MG (20 mL) VIAL ONE (19:45)
[2023-11-18] MEDS ORDERED: Furosemide 20 MG (2 mL) VIAL ONE (19:49)
[2023-11-18] MEDS ORDERED: SUCCINYLCHOLINE/SOD CL,ISO/PF 200 MG/10 ML SYRINGE FS ONE (19:49)
[2023-11-18] MEDS ORDERED: fentaNYL 50 mcg/mL 1 mL Vial ONE (20:03)
[2023-11-18 20:15] LABS: Influenza A by NAA Not Detected (NotDetected); Influenza B by NAA Not Detected (NotDetected); SARS-CoV-2 NAA Rapid Test Not Detected (NotDetected)
[2023-11-18] MEDS ORDERED: Fentanyl CADD 100 ML IV SCH (20:15)
[2023-11-18 20:17] LABS: Bacteria/HPF None Seen HPF (None Seen); Bilirubin Negative (Negative); Blood, Urine 3+ (Negative); CAUTI Indications for Culture Alt mental st,lethar; Clarity Turbid (Clear); Glucose, Urine (Dipstick) Normal (Negative); Ketone, Urine Negative (Negative); Leukocyte 75 Leu/uL (Negative); Nitrite Negative (Negative); Protein, Urine (Dipstick) 20 mg/dL (Neg-Trace); RBC/HPF Greater than 50 HPF (0-3); Specific Gravity, Urine 1.015 (1.002-1.036); Squamous Epithelial 0-3 HPF (0-3); Urobilinogen Normal mg/dL (Less than 2)
[2023-11-18 20:18] LABS: Urine Culture Reflex No No
[2023-11-18] MEDS ORDERED: Ondansetron PF 4 MG/2 ML Vial IVP PRN (21:05)
[2023-11-18 21:13] LABS: Actual Bicarbonate (HCO3a) 33.2 mEq/L (22-28); O2 Tension (PaO2), arterial 111.3 mmHg (> 80.0); pH, Arterial 7.406 (7.35-7.45)
[2023-11-18 21:14] LABS: Analyzer IN Cardio ER; Calcium, Ionized (arterial) 1.15 mmol/L (1.12-1.30); Carboxyhemoglobin (COHb) 0.7 gm% (0.0-3.0); Hematocrit-ABG 39 % (42.0-52.0); Hemoglobin (Hb) 13.1 g/dL (14.0-18.0); Potassium - ABG Lab 5.15 mmol/L (3.70-5.30); Puncture Site RRA
[2023-11-18 21:16] LABS: Analyzer IN Cardio ER; pH (venous) 7.205 (7.32-7.43)
[2023-11-18 21:17] LABS: Actual Bicarbonate (HCO3v) 39.2 mEq/L (22-28); Base Excess 7.3 mEq/L (-2.0 to +3.0); Calcium, Ionized (venous) 1.16 mmol/L (1.16-1.32); Chloride (VBG) 95 mmol/L (98-106); Hematocrit-VBG 41 % (42.0-52.0); Hemoglobin (Hb) 13.8 g/dL (12.6-17.4); Potassium (VBG) 4.65 mmol/L (3.70-5.30); Sodium 140 mmol/L (133-146)
[2023-11-18] MEDS ORDERED: methylPREDNISolone Sod Succ/PF 125 MG/2 ML VIAL ONE (21:28)
[2023-11-18] MEDS ORDERED: Ventilator Sedation Protocol 1 EACH FS SCH (22:00)
[2023-11-18] MEDS ORDERED: Fentanyl BOLUS 250 ML IVPB PRN (22:00)
[2023-11-18] MEDS ORDERED: DISCONTINUE PREVIOUS NARCOTIC PAIN MEDICATIONS AND BENZODIAZEPINES FS SCH (22:00)
[2023-11-18] MEDS ORDERED: Propofol BOLUS 1,000 MG/100 ML VIAL IV PRN (22:00)
[2023-11-18] MEDS: Ipratropium/Albuterol 3 ML NEB NEB SCH (22:46)
[2023-11-18] MEDS ORDERED: Azithromycin 1,000 MG in Sodium Chloride 0.9% 500 ML IVPB SCH (23:00)
[2023-11-18] MEDS ORDERED: cefTRIAXone\\ROCEPHIN 1 GM in Sodium Chloride 0.9% 100 ML IVPB SCH (23:00)
[2023-11-18] MEDS: Propofol 1,000 MG/100 ML VIAL IV ONE (23:41)
[2023-11-18] MEDS ORDERED: Azithromycin 500 MG in Sodium Chloride 0.9% 250 ML 250 ML IVPB SCH (23:59)
[2023-11-19] MEDS: Thiamine HCl 200 MG/2 ML VIAL SLOW IVP SCH (00:31)
[2023-11-19] MEDS: LevoFLOXacin 500 mg/D5W 500 MG in Premix 1 BAG IVPB SCH (00:32)
[2023-11-19] MEDS: metroNIDAZOLE 500 MG in Premix 1 BAG IVPB SCH (00:33)
[2023-11-19] MEDS: Multivitamins, Adult 10 ML in Sodium Chloride 0.9% 500 ML IV SCH (00:33)
[2023-11-19] MEDS: Multivit, Adult Inj 10 ML VIAL IV SCH (00:45)
[2023-11-19] MEDS: Furosemide 20 MG (2 mL) VIAL SLOW IVP SCH (06:18)
[2023-11-19 06:38] LABS: #Monocytes 0.1 thou/uL (0.11-0.59); #Neutrophils 5.7 thou/uL (1.40-6.50); %Eosinophils 0.2 % (0.0-10.0); %Lymphocytes 4.6 % (21.0-51.0); %Monocytes 1.2 % (0.0-10.0); %Neutrophils 93.5 % (42.0-75.0); Hemoglobin 11.8 g/dL (14.0-18.0); Mean Corpuscular HGB CONC 30.3 g/dL (32.0-36.0); Mean Corpuscular Hemoglobin 30.6 pg (27.0-31.0); Mean Platelet Volume 9.9 fL (7.4-10.4); Platelet Count 262 10x3/uL (130-400); RBC Distribution Width 14.4 % (11.5-14.5); Red Blood Cell (RBC) Count 3.86 mill/uL (4.70-6.10); White Blood Cell (WBC) Count 6.1 10x3/uL (4.8-10.8)
[2023-11-19 07:03] LABS: Actual Bicarbonate (HCO3a) 30.8 mEq/L (22-28); Base Excess (BEa) 9.6 mEq/L (-2.0 to +3.0); CO2 Tension 30.6 mmHg (35.0-45.0); Carboxyhemoglobin (COHb) 0.8 gm% (0.0-3.0); Hematocrit-ABG 37 % (42.0-52.0); Hemoglobin (Hb) 12.5 g/dL (14.0-18.0)
[2023-11-19 07:04] LABS: O2 Tension (PaO2), arterial 53.6 mmHg (> 80.0); Puncture Site RRA
[2023-11-19 07:05] LABS: Albumin 3.5 g/dL (3.4-4.8); Anion Gap 19 mmol/L (10-20); BUN (Urea Nitrogen) 43 mg/dL (8.4-25.7); Bilirubin, Total 0.9 mg/dL (0.2-1.2); Calc. Creatinine Clearance 56 mL/min (70-130); Calcium 9.2 mg/dL (7.8-10.44); Carbon Dioxide 30 mmol/L (23-31); Chloride 93 mmol/L (98-107); Estimated GFR 43; Glucose 205 mg/dL (80-115); Potassium 4.1 mmol/L (3.5-5.1); Sodium 138 mmol/L (136-145)
[2023-11-19 07:06] LABS: ALT (SGPT) 48 U/L (8-55); AST (SGOT) 46 U/L (5-34); Alkaline Phosphatase 189 U/L (40-110); Globulin 2.5 g/dL (2.4-3.5)
[2023-11-19] MEDS: Fentanyl CADD 100 ML IV SCH (09:28)
[2023-11-19] MEDS: Senokot S 8.6-50 MG TAB PO SCH (09:36)
[2023-11-19] MEDS: Polyethylene Glycol 3350 17 GM Packet PER TUBE SCH (09:36)
[2023-11-19] MEDS: Folic Acid 1 MG TAB PO SCH (09:36)
[2023-11-19] MEDS: Famotidine/PF 20 mg/2ml Vial SLOW IVP SCH (09:36)
[2023-11-19] MEDS: Apixaban 5 MG TAB PO SCH (09:36)
[2023-11-19] MEDS: methylPREDNISolone Sod Succ 40 MG VIAL IVP SCH (09:36)
[2023-11-19] MEDS: Propofol 1,000 MG/100 ML VIAL IV PRN (09:59)
[2023-11-19 14:23] LABS: Amphetamine Not Detected (NotDetected); Barbiturates Screen Not Detected (NotDetected); Benzodiazepine Screen Not Detected (NotDetected); Cocaine Metabolite Screen Not Detected (NotDetected); Methadone Not Detected (NotDetected); Methamphetamine Not Detected (NotDetected); Opiate Screen Detected (NotDetected); Oxycodone Screen Not Detected (NotDetected); Phencyclidine (PCP) Not Detected (NotDetected); THC/Cannabinoid Screen Not Detected (NotDetected); Tricyclic Screen Not Detected (NotDetected)
[2023-11-19] MEDS: Fentanyl CADD 100 ML ONE (22:20)
[2023-11-20 04:16] LABS: #Monocytes 0.4 thou/uL (0.11-0.59); #Neutrophils 15.9 thou/uL (1.40-6.50); %Basophils 0.1 % (0.0-1.0); %Monocytes 2.1 % (0.0-10.0); %Neutrophils 95.4 % (42.0-75.0); Hematocrit 37.4 % (42.0-52.0); Hemoglobin 11.7 g/dL (14.0-18.0); Mean Corpuscular HGB CONC 31.3 g/dL (32.0-36.0); Mean Corpuscular Hemoglobin 31.5 pg (27.0-31.0); Mean Corpuscular Volume 100.5 fl (78.0-98.0); Platelet Count 282 10x3/uL (130-400); RBC Distribution Width 14.3 % (11.5-14.5); Red Blood Cell (RBC) Count 3.72 mill/uL (4.70-6.10); White Blood Cell (WBC) Count 16.7 10x3/uL (4.8-10.8)
[2023-11-20 05:08] LABS: ALT (SGPT) 39 U/L (8-55); AST (SGOT) 25 U/L (5-34); Albumin 3.5 g/dL (3.4-4.8); Alkaline Phosphatase 181 U/L (40-110); Anion Gap 15 mmol/L (10-20); BUN (Urea Nitrogen) 53 mg/dL (8.4-25.7); Bilirubin, Total 0.4 mg/dL (0.2-1.2); Calc. Creatinine Clearance 53 mL/min (70-130); Calcium 9.5 mg/dL (7.8-10.44); Carbon Dioxide 36 mmol/L (23-31); Chloride 93 mmol/L (98-107); Estimated GFR 40; Globulin 2.7 g/dL (2.4-3.5); Glucose 217 mg/dL (80-115); Magnesium 3.1 mg/dL (1.6-2.6); Protein, Total 6.2 g/dL (5.8-8.1); Sodium 140 mmol/L (136-145)
[2023-11-20] MEDS: Lorazepam 2 MG/ML VIAL SLOW IVP PRN (11:31)
[2023-11-20] MEDS ORDERED: Dexmedetomidine In 0.9 % NaCl 100 ML IVPB SCH (12:30)
[2023-11-21 04:57] LABS: #Monocytes 0.2 thou/uL (0.11-0.59); #Neutrophils 10.8 thou/uL (1.40-6.50); %Basophils 0.1 % (0.0-1.0); %Lymphocytes 2.8 % (21.0-51.0); %Monocytes 1.9 % (0.0-10.0); %Neutrophils 94.7 % (42.0-75.0); Hematocrit 39.7 % (42.0-52.0); Hemoglobin 12.3 g/dL (14.0-18.0); Mean Corpuscular Hemoglobin 31.1 pg (27.0-31.0); Mean Corpuscular Volume 100.3 fl (78.0-98.0); Mean Platelet Volume 10.1 fL (7.4-10.4); Platelet Count 299 10x3/uL (130-400); RBC Distribution Width 14.4 % (11.5-14.5); Red Blood Cell (RBC) Count 3.96 mill/uL (4.70-6.10); White Blood Cell (WBC) Count 11.4 10x3/uL (4.8-10.8)
[2023-11-21 05:57] LABS: ALT (SGPT) 28 U/L (8-55); AST (SGOT) 19 U/L (5-34); Albumin 3.4 g/dL (3.4-4.8); Alkaline Phosphatase 163 U/L (40-110); Anion Gap 15 mmol/L (10-20); BUN (Urea Nitrogen) 54 mg/dL (8.4-25.7); Bilirubin, Total 0.4 mg/dL (0.2-1.2); Calc. Creatinine Clearance 58 mL/min (70-130); Calcium 9.5 mg/dL (7.8-10.44); Carbon Dioxide 33 mmol/L (23-31); Chloride 93 mmol/L (98-107); Estimated GFR 45; Globulin 2.7 g/dL (2.4-3.5); Glucose 195 mg/dL (80-115); Magnesium 2.9 mg/dL (1.6-2.6); Potassium 4.2 mmol/L (3.5-5.1); Protein, Total 6.1 g/dL (5.8-8.1); Sodium 137 mmol/L (136-145)
[2023-11-21] MEDS: Dexmedetomidine 400 MCG, Admixture Fee 1 EACH in Sodium Chloride 0.9% 96 ML IVPB SCH (08:34)
[2023-11-21] MEDS ORDERED: Electrolyte Replacement Protocol 1 EACH FS SCH (08:52)
[2023-11-21] MEDS: metroNIDAZOLE 500 MG (100 mL) BAG ONE (09:00)
[2023-11-21] MEDS ORDERED: Electrolyte Replacement Protocol FS PRN (09:15)
[2023-11-21] MEDS: FLU VACC QS2023(65UP)/MF59C/PF 60 MCG/0.5 ML SYRINGE IM ONE (22:19)
[2023-11-22 05:00] LABS: #Monocytes 0.5 thou/uL (0.11-0.59); #Neutrophils 8.6 thou/uL (1.40-6.50); %Monocytes 4.8 % (0.0-10.0); %Neutrophils 89.5 % (42.0-75.0); Hematocrit 42.2 % (42.0-52.0); Hemoglobin 13.4 g/dL (14.0-18.0); Mean Corpuscular HGB CONC 31.8 g/dL (32.0-36.0); Mean Corpuscular Hemoglobin 31.3 pg (27.0-31.0); Mean Corpuscular Volume 98.6 fl (78.0-98.0); Mean Platelet Volume 10.3 fL (7.4-10.4); Platelet Count 285 10x3/uL (130-400); RBC Distribution Width 14.3 % (11.5-14.5); Red Blood Cell (RBC) Count 4.28 mill/uL (4.70-6.10); White Blood Cell (WBC) Count 9.6 10x3/uL (4.8-10.8)
[2023-11-22 05:24] LABS: Anion Gap 17 mmol/L (10-20); BUN (Urea Nitrogen) 54 mg/dL (8.4-25.7); Calc. Creatinine Clearance 61 mL/min (70-130); Calcium 9.5 mg/dL (7.8-10.44); Carbon Dioxide 29 mmol/L (23-31); Chloride 95 mmol/L (98-107); Estimated GFR 49; Glucose 181 mg/dL (80-115); Potassium 3.8 mmol/L (3.5-5.1); Sodium 137 mmol/L (136-145)
[2023-11-23 06:01] LABS: #Monocytes 0.5 thou/uL (0.11-0.59); #Neutrophils 9.1 thou/uL (1.40-6.50); %Basophils 0.1 % (0.0-1.0); %Lymphocytes 4.5 % (21.0-51.0); %Monocytes 4.7 % (0.0-10.0); %Neutrophils 89.3 % (42.0-75.0); Hematocrit 42.6 % (42.0-52.0); Hemoglobin 13.5 g/dL (14.0-18.0); Mean Corpuscular HGB CONC 31.7 g/dL (32.0-36.0); Mean Corpuscular Hemoglobin 31.4 pg (27.0-31.0); Mean Corpuscular Volume 99.1 fl (78.0-98.0); Mean Platelet Volume 10.6 fL (7.4-10.4); Platelet Count 271 10x3/uL (130-400); RBC Distribution Width 14.3 % (11.5-14.5); White Blood Cell (WBC) Count 10.2 10x3/uL (4.8-10.8)
[2023-11-23 07:23] LABS: Anion Gap 18 mmol/L (10-20); BUN (Urea Nitrogen) 60 mg/dL (8.4-25.7); Calc. Creatinine Clearance 71 mL/min (70-130); Calcium 8.9 mg/dL (7.8-10.44); Carbon Dioxide 25 mmol/L (23-31); Chloride 99 mmol/L (98-107); Estimated GFR 58; Glucose 238 mg/dL (80-115); Potassium 4.3 mmol/L (3.5-5.1); Sodium 138 mmol/L (136-145)
[2023-11-23] MEDS ORDERED: Dextrose 50% Abboject 50 ML SYRINGE SLOW IVP PRN (09:58)
[2023-11-23] MEDS ORDERED: Dextrose 5% in Water 1,000 ML IV PRN (09:58)
[2023-11-23] MEDS ORDERED: Glucagon 1 MG/ML KIT IM PRN (09:58)
[2023-11-23] MEDS: Morphine 2 MG/ML VIAL SLOW IVP PRN (10:18)
[2023-11-23] MEDS: hydrALAZINE 20 MG/ML VIAL SLOW IVP PRN (11:08)
[2023-11-23] MEDS: Dexmedetomidine 1,000 MCG in NS 250 mL IVPB SCH (11:33)
[2023-11-23] MEDS: HumaLOG 300 UNITS/3 ML VIAL SC PRN (12:29)
[2023-11-23] MEDS: Gabapentin 300 MG CAP PER TUBE SCH (21:31)
[2023-11-23] MEDS: busPIRone HCl 10 MG TAB PER TUBE SCH (21:31)
[2023-11-24 05:02] LABS: #Basophils 0.1 thou/uL (0.0-0.2); #Monocytes 0.9 thou/uL (0.11-0.59); %Basophils 0.4 % (0.0-1.0); %Eosinophils 0.1 % (0.0-10.0); %Lymphocytes 10.4 % (21.0-51.0); %Monocytes 8.2 % (0.0-10.0); %Neutrophils 79.1 % (42.0-75.0); Hematocrit 45.8 % (42.0-52.0); Hemoglobin 14.7 g/dL (14.0-18.0); Mean Corpuscular HGB CONC 32.1 g/dL (32.0-36.0); Mean Corpuscular Hemoglobin 30.8 pg (27.0-31.0); Mean Platelet Volume 10.7 fL (7.4-10.4); Platelet Count 287 10x3/uL (130-400); RBC Distribution Width 14.4 % (11.5-14.5); Red Blood Cell (RBC) Count 4.78 mill/uL (4.70-6.10); White Blood Cell (WBC) Count 11.4 10x3/uL (4.8-10.8)
[2023-11-24 05:26] LABS: Anion Gap 15 mmol/L (10-20); BUN (Urea Nitrogen) 53 mg/dL (8.4-25.7); Calc. Creatinine Clearance 79 mL/min (70-130); Calcium 8.9 mg/dL (7.8-10.44); Carbon Dioxide 27 mmol/L (23-31); Chloride 102 mmol/L (98-107); Estimated GFR 66; Glucose 202 mg/dL (80-115); Potassium 3.2 mmol/L (3.5-5.1); Sodium 141 mmol/L (136-145)
[2023-11-24 05:46] LABS: Mean Corpuscular Volume 95.8 fl (78.0-98.0)
[2023-11-24] MEDS: Potassium Chloride 20 MEQ TAB PO SCH (07:41)
[2023-11-24 12:18] LABS: Potassium 3.9 mmol/L (3.5-5.1)
[2023-11-24] MEDS: Acetaminophen 325 MG TAB PO PRN (22:48)
[2023-11-25 00:18] LABS: Bacteria/HPF None Seen HPF (None Seen); Bilirubin Negative (Negative); Blood, Urine 1+ (Negative); CAUTI Indications for Culture Fever or rigors; Calcium Oxalate Crystals Rare HPF (None Seen); Clarity Clear (Clear); Glucose, Urine (Dipstick) Normal (Negative); Ketone, Urine Negative (Negative); Leukocyte 250 Leu/uL (Negative); Nitrite Negative (Negative); Protein, Urine (Dipstick) Negative (Neg-Trace); RBC/HPF 21-50 HPF (0-3); Specific Gravity, Urine 1.018 (1.002-1.036); Squamous Epithelial 0-3 HPF (0-3); Urobilinogen Normal mg/dL (Less than 2); Yeast-Budding 1+ HPF (None Seen); pH, Urine 5.5 (5.0-9.0)
[2023-11-25 00:21] LABS: Urine Culture Reflex Yes Yes
[2023-11-25 05:25] LABS: #Monocytes 0.4 thou/uL (0.11-0.59); %Basophils 0.3 % (0.0-1.0); %Lymphocytes 4.9 % (21.0-51.0); %Monocytes 3.4 % (0.0-10.0); %Neutrophils 89.2 % (42.0-75.0); Hematocrit 45.7 % (42.0-52.0); Hemoglobin 14.4 g/dL (14.0-18.0); Mean Corpuscular HGB CONC 31.5 g/dL (32.0-36.0); Mean Corpuscular Hemoglobin 30.5 pg (27.0-31.0); Mean Corpuscular Volume 96.8 fl (78.0-98.0); Mean Platelet Volume 11.4 fL (7.4-10.4); Platelet Count 260 10x3/uL (130-400); RBC Distribution Width 14.5 % (11.5-14.5); Red Blood Cell (RBC) Count 4.72 mill/uL (4.70-6.10); White Blood Cell (WBC) Count 12.4 10x3/uL (4.8-10.8)
[2023-11-25 05:48] LABS: Anion Gap 13 mmol/L (10-20); BUN (Urea Nitrogen) 54 mg/dL (8.4-25.7); Calc. Creatinine Clearance 85 mL/min (70-130); Calcium 8.8 mg/dL (7.8-10.44); Carbon Dioxide 26 mmol/L (23-31); Chloride 106 mmol/L (98-107); Estimated GFR 73; Glucose 273 mg/dL (80-115); Potassium 3.6 mmol/L (3.5-5.1); Sodium 141 mmol/L (136-145)
[2023-11-25] MEDS: Famotidine/PF 20 mg/2ml Vial SLOW IVP SCH (08:00)
[2023-11-25] MEDS: HumaLOG 300 UNITS/3 ML VIAL SC PRN (21:08)
[2023-11-26] MEDS: QUEtiapine 25 MG TAB PO SCH (01:48)
[2023-11-26 03:51] LABS: #Monocytes 0.4 thou/uL (0.11-0.59); #Neutrophils 9.4 thou/uL (1.40-6.50); %Basophils 0.1 % (0.0-1.0); %Lymphocytes 5.2 % (21.0-51.0); %Monocytes 3.5 % (0.0-10.0); %Neutrophils 89.7 % (42.0-75.0); Hematocrit 44.9 % (42.0-52.0); Hemoglobin 14.2 g/dL (14.0-18.0); Mean Corpuscular HGB CONC 31.6 g/dL (32.0-36.0); Mean Corpuscular Hemoglobin 30.8 pg (27.0-31.0); Mean Corpuscular Volume 97.4 fl (78.0-98.0); Platelet Count 228 10x3/uL (130-400); RBC Distribution Width 14.6 % (11.5-14.5); Red Blood Cell (RBC) Count 4.61 mill/uL (4.70-6.10); White Blood Cell (WBC) Count 10.5 10x3/uL (4.8-10.8)
[2023-11-26 04:24] LABS: Anion Gap 16 mmol/L (10-20); BUN (Urea Nitrogen) 55 mg/dL (8.4-25.7); Calc. Creatinine Clearance 89 mL/min (70-130); Calcium 8.7 mg/dL (7.8-10.44); Carbon Dioxide 25 mmol/L (23-31); Chloride 108 mmol/L (98-107); Estimated GFR 78; Glucose 280 mg/dL (80-115); Potassium 3.4 mmol/L (3.5-5.1); Sodium 146 mmol/L (136-145)
[2023-11-26] MEDS: Potassium Chloride 20 MEQ TAB PO SCH (08:53)
[2023-11-26] MEDS ORDERED: Metoclopramide HCl 10 MG (2 mL) VIAL IVP PRN (09:41)
[2023-11-26] MEDS: Magnesium 2 GM/50 ML(in water) 2 GM in Premix 1 BAG IVPB SCH (10:21)
[2023-11-26] MEDS: Insulin Glargine 30 UNITS/0.3 ML VIAL SC SCH (10:42)
[2023-11-26] MEDS: HumaLOG 300 UNITS/3 ML VIAL SC PRN (20:25)
[2023-11-26] MEDS: Famotidine 20 MG TAB PER TUBE SCH (20:27)
[2023-11-26] MEDS: Thiamine 100 MG TAB PER TUBE SCH (20:27)
[2023-11-27 04:21] LABS: #Monocytes 0.7 thou/uL (0.11-0.59); #Neutrophils 9.4 thou/uL (1.40-6.50); %Basophils 0.1 % (0.0-1.0); %Monocytes 5.8 % (0.0-10.0); Hematocrit 42.3 % (42.0-52.0); Hemoglobin 13.4 g/dL (14.0-18.0); Mean Corpuscular HGB CONC 31.7 g/dL (32.0-36.0); Mean Corpuscular Hemoglobin 31.2 pg (27.0-31.0); Mean Corpuscular Volume 98.6 fl (78.0-98.0); Mean Platelet Volume 11.7 fL (7.4-10.4); Platelet Count 243 10x3/uL (130-400); RBC Distribution Width 14.7 % (11.5-14.5); Red Blood Cell (RBC) Count 4.29 mill/uL (4.70-6.10); White Blood Cell (WBC) Count 11.3 10x3/uL (4.8-10.8)
[2023-11-27 05:52] LABS: Calcium 8.8 mg/dL (7.8-10.44); Chloride 107 mmol/L (98-107); Potassium 4.9 mmol/L (3.5-5.1); Sodium 142 mmol/L (136-145)
[2023-11-27 05:53] LABS: Glucose 166 mg/dL (80-115)
[2023-11-27 05:54] LABS: Anion Gap 14 mmol/L (10-20); Carbon Dioxide 26 mmol/L (23-31)
[2023-11-27 05:56] LABS: Calc. Creatinine Clearance 97 mL/min (70-130); Estimated GFR 89
[2023-11-27 05:57] LABS: BUN (Urea Nitrogen) 58 mg/dL (8.4-25.7)
[2023-11-27] MEDS ORDERED: DC Sedation Protocol FS SCH (08:44)
[2023-11-27] MEDS: methylPREDNISolone Sod Succ 40 MG VIAL IVP SCH (09:25)
[2023-11-27] MEDS: Insulin Glargine 30 UNITS/0.3 ML VIAL SC SCH (09:25)
[2023-11-28 07:09] LABS: #Monocytes 0.9 thou/uL (0.11-0.59); #Neutrophils 11.4 thou/uL (1.40-6.50); %Basophils 0.1 % (0.0-1.0); %Eosinophils 0.1 % (0.0-10.0); %Lymphocytes 13.4 % (21.0-51.0); %Monocytes 6.5 % (0.0-10.0); %Neutrophils 78.9 % (42.0-75.0); Hematocrit 41.2 % (42.0-52.0); Hemoglobin 13.3 g/dL (14.0-18.0); Mean Corpuscular HGB CONC 32.3 g/dL (32.0-36.0); Mean Corpuscular Hemoglobin 31.5 pg (27.0-31.0); Mean Corpuscular Volume 97.6 fl (78.0-98.0); Mean Platelet Volume 11.7 fL (7.4-10.4); Platelet Count 240 10x3/uL (130-400); RBC Distribution Width 14.5 % (11.5-14.5); Red Blood Cell (RBC) Count 4.22 mill/uL (4.70-6.10); White Blood Cell (WBC) Count 14.4 10x3/uL (4.8-10.8)
[2023-11-28 07:37] LABS: Anion Gap 16 mmol/L (10-20); BUN (Urea Nitrogen) 58 mg/dL (8.4-25.7); Calc. Creatinine Clearance 89 mL/min (70-130); Calcium 8.8 mg/dL (7.8-10.44); Carbon Dioxide 22 mmol/L (23-31); Chloride 104 mmol/L (98-107); Estimated GFR 77; Glucose 143 mg/dL (80-115); Sodium 138 mmol/L (136-145)
[2023-11-28] MEDS: predniSONE 20 MG TAB PO SCH (13:08)
[2023-11-29 06:07] LABS: #Eosinphils 0.1 thou/uL (0.0-0.7); #Monocytes 0.9 thou/uL (0.11-0.59); #Neutrophils 10.7 thou/uL (1.40-6.50); %Basophils 0.1 % (0.0-1.0); %Eosinophils 0.4 % (0.0-10.0); %Lymphocytes 13.4 % (21.0-51.0); %Monocytes 6.3 % (0.0-10.0); %Neutrophils 78.6 % (42.0-75.0); Hematocrit 38.4 % (42.0-52.0); Hemoglobin 12.4 g/dL (14.0-18.0); Mean Corpuscular HGB CONC 32.3 g/dL (32.0-36.0); Mean Platelet Volume 12.1 fL (7.4-10.4); Platelet Count 225 10x3/uL (130-400); RBC Distribution Width 14.3 % (11.5-14.5); White Blood Cell (WBC) Count 13.5 10x3/uL (4.8-10.8)
[2023-11-29 07:01] LABS: ALT (SGPT) 61 U/L (8-55); AST (SGOT) 32 U/L (5-34); Albumin 3.3 g/dL (3.4-4.8); Alkaline Phosphatase 83 U/L (40-110); Anion Gap 10 mmol/L (10-20); BUN (Urea Nitrogen) 44 mg/dL (8.4-25.7); Bilirubin, Total 0.9 mg/dL (0.2-1.2); Calc. Creatinine Clearance 107 mL/min (70-130); Calcium 8.7 mg/dL (7.8-10.44); Carbon Dioxide 29 mmol/L (23-31); Chloride 104 mmol/L (98-107); Estimated GFR 94; Globulin 1.7 g/dL (2.4-3.5); Glucose 117 mg/dL (80-115); Potassium 3.2 mmol/L (3.5-5.1); Sodium 140 mmol/L (136-145)
[2023-11-29] MEDS ORDERED: Ipratropium/Albuterol 3 ML NEB NEB PRN (07:26)
[2023-11-29] MEDS: Potassium Chloride 20 MEQ TAB PO SCH (09:06)
[2023-11-29 10:33] VITALS: BMI 32.0
[2023-11-29] MEDS ORDERED: Barium Sulfate 96% 176 GM BOT (xray ONLY) ONE (13:32)
[2023-11-29] MEDS: Acetaminophen 500 MG TAB PO PRN (14:12)
[2023-11-29] MEDS: tiZANidine HCl 4 MG TAB PO SCH ×2 (14:13→23:13)
[2023-11-29] MEDS: QUEtiapine 25 MG TAB PO SCH (23:13)
[2023-11-30 05:06] LABS: #Eosinphils 0.1 thou/uL (0.0-0.7); #Monocytes 0.7 thou/uL (0.11-0.59); #Neutrophils 10.2 thou/uL (1.40-6.50); %Basophils 0.2 % (0.0-1.0); %Eosinophils 0.8 % (0.0-10.0); %Lymphocytes 11.5 % (21.0-51.0); %Monocytes 5.5 % (0.0-10.0); %Neutrophils 81.1 % (42.0-75.0); Hematocrit 41.2 % (42.0-52.0); Hemoglobin 13.1 g/dL (14.0-18.0); Mean Corpuscular HGB CONC 31.8 g/dL (32.0-36.0); Mean Corpuscular Hemoglobin 30.6 pg (27.0-31.0); Mean Corpuscular Volume 96.3 fl (78.0-98.0); Platelet Count 251 10x3/uL (130-400); RBC Distribution Width 14.4 % (11.5-14.5); Red Blood Cell (RBC) Count 4.28 mill/uL (4.70-6.10); White Blood Cell (WBC) Count 12.5 10x3/uL (4.8-10.8)
[2023-11-30 05:10] LABS: ALT (SGPT) 68 U/L (8-55); AST (SGOT) 37 U/L (5-34); Albumin 3.2 g/dL (3.4-4.8); Alkaline Phosphatase 85 U/L (40-110); Anion Gap 15 mmol/L (10-20); BUN (Urea Nitrogen) 32 mg/dL (8.4-25.7); Bilirubin, Total 0.7 mg/dL (0.2-1.2); Calc. Creatinine Clearance 112 mL/min (70-130); Calcium 8.8 mg/dL (7.8-10.44); Carbon Dioxide 28 mmol/L (23-31); Chloride 105 mmol/L (98-107); Estimated GFR 95; Globulin 1.9 g/dL (2.4-3.5); Glucose 123 mg/dL (80-115); Potassium 3.9 mmol/L (3.5-5.1); Protein, Total 5.1 g/dL (5.8-8.1); Sodium 144 mmol/L (136-145)
[2023-11-30] MEDS: Lactated Ringer's 500 ML IV SCH (09:48)
[2023-12-01 07:20] LABS: #Eosinphils 0.1 thou/uL (0.0-0.7); #Monocytes 0.7 thou/uL (0.11-0.59); #Neutrophils 10.7 thou/uL (1.40-6.50); %Basophils 0.1 % (0.0-1.0); %Eosinophils 0.8 % (0.0-10.0); %Monocytes 5.2 % (0.0-10.0); %Neutrophils 80.1 % (42.0-75.0); Hematocrit 39.9 % (42.0-52.0); Hemoglobin 12.6 g/dL (14.0-18.0); Mean Corpuscular HGB CONC 31.6 g/dL (32.0-36.0); Mean Corpuscular Hemoglobin 30.5 pg (27.0-31.0); Mean Corpuscular Volume 96.6 fl (78.0-98.0); Mean Platelet Volume 11.6 fL (7.4-10.4); Platelet Count 240 10x3/uL (130-400); RBC Distribution Width 14.5 % (11.5-14.5); Red Blood Cell (RBC) Count 4.13 mill/uL (4.70-6.10); White Blood Cell (WBC) Count 13.4 10x3/uL (4.8-10.8)
[2023-12-01 08:02] LABS: ALT (SGPT) 69 U/L (8-55); AST (SGOT) 26 U/L (5-34); Albumin 3.1 g/dL (3.4-4.8); Alkaline Phosphatase 85 U/L (40-110); Anion Gap 10 mmol/L (10-20); BUN (Urea Nitrogen) 28 mg/dL (8.4-25.7); Bilirubin, Total 0.7 mg/dL (0.2-1.2); Calc. Creatinine Clearance 118 mL/min (70-130); Calcium 8.9 mg/dL (7.8-10.44); Carbon Dioxide 26 mmol/L (23-31); Chloride 107 mmol/L (98-107); Estimated GFR 97; Globulin 1.7 g/dL (2.4-3.5); Glucose 136 mg/dL (80-115); Potassium 3.4 mmol/L (3.5-5.1); Protein, Total 4.8 g/dL (5.8-8.1); Sodium 140 mmol/L (136-145)
[2023-12-01] MEDS: Torsemide 20 MG TAB PO SCH (08:38)
[2023-12-01] MEDS: Potassium Bicarbonate/Cit Ac 20 MEQ TAB PER TUBE SCH (10:15)
[2023-12-01 12:28] VITALS: BP 159/91; TEMP 98.4
[2023-12-01] MEDS ORDERED: Atorvastatin Calcium 40 MG TAB PO SCH (21:00)
[2023-12-02] MEDS ORDERED: Levothyroxine Sodium 75 MCG TAB PO SCH (06:00)
== END 2023-12-01 13:24 | disposition home health service (06) | DRG 207 ==
LOC: ERS 18:13 → CCU 21:07 → T4-A 11-27 10:24
PROVIDERS: ADMIT Internal Medicine; ATTEND Family Medicine
PROC: 0BH17EZ Insertion of Endotracheal Airway into Trachea, Via Natural or Artificial Opening (ICD-10-PCS; principal; 2023-11-18)
PROC: 5A1955Z Respiratory Ventilation, Greater than 96 Consecutive Hours (ICD-10-PCS; 2023-11-18)
PROC: 5A09357 Assistance with Respiratory Ventilation, Less than 24 Consecutive Hours, Continuous Positive Airway Pressure (ICD-10-PCS; 2023-11-27)
DX: J96.22 Acute and chronic respiratory failure with hypercapnia (principal); G93.41 Metabolic encephalopathy; J69.0 Pneumonitis due to inhalation of food and vomit; I50.33 Acute on chronic diastolic (congestive) heart failure; N17.9 Acute kidney failure, unspecified; G82.20 Paraplegia, unspecified; J96.01 Acute respiratory failure with hypoxia; I48.91 Unspecified atrial fibrillation; J44.9 Chronic obstructive pulmonary disease, unspecified; G47.33 Obstructive sleep apnea (adult) (pediatric); I25.10 Atherosclerotic heart disease of native coronary artery without angina pectoris; I73.9 Peripheral vascular disease, unspecified; F41.9 Anxiety disorder, unspecified; F32.A Depression, unspecified; R13.10 Dysphagia, unspecified; D53.9 Nutritional anemia, unspecified; E03.9 Hypothyroidism, unspecified; L89.629 Pressure ulcer of left heel, unspecified stage; L89.619 Pressure ulcer of right heel, unspecified stage; F10.10 Alcohol abuse, uncomplicated; N18.2 Chronic kidney disease, stage 2 (mild); E88.09 Other disorders of plasma-protein metabolism, not elsewhere classified; N20.0 Calculus of kidney; R31.9 Hematuria, unspecified; Z85.46 Personal history of malignant neoplasm of prostate; Z79.01 Long term (current) use of anticoagulants; Z88.1 Allergy status to other antibiotic agents; Z88.8 Allergy status to other drugs, medicaments and biological substances; Z79.51 Long term (current) use of inhaled steroids; Z79.899 Other long term (current) drug therapy
CPT/HCPCS: 31500; 36415; 36416; 36600; 70450; 71045; 71250; 74176; 74230; 80048; 80053; 80306; 81001; 82607; 82805; 83605; 83690; 83735; 83880; 84484; 85025; 86140; 87040; 87077; 87086; 87186; 93005; 93306; 94002; 94003; 94640; 94660; 96365; 96375; 96376; 97139; J0360; J1815; J1940; J1956; J2060; J2272; J2704; J2920; J2930; J3010; J3411; J3475; J3490; J7030; J7050; J7120; J7512; J7620; S0028

== ENCOUNTER 2025-07-02 12:30 | Outpatient (CLI) | payer OTHER | END 2025-07-02 12:31 | disposition home or self-care (01) | LOC: PET 12:30 | PROVIDERS: ATTEND Urology | DX: C61 Malignant neoplasm of prostate (principal); C77.0 Secondary and unspecified malignant neoplasm of lymph nodes of head, face and neck; C77.2 Secondary and unspecified malignant neoplasm of intra-abdominal lymph nodes; C77.5 Secondary and unspecified malignant neoplasm of intrapelvic lymph nodes; C77.1 Secondary and unspecified malignant neoplasm of intrathoracic lymph nodes | CPT/HCPCS: 78815; A9595-JZ ==

== ENCOUNTER 2025-09-13 09:20 | Emergency (ER) | payer OTHER ==
[2025-09-13 10:45] LABS: #Basophils 0.05 10x3/uL (0.0-0.2); #Eosinophils 0.20 10x3/uL (0.0-0.7); #Monocytes 0.65 10x3/uL (0.11-0.59); #Neutrophils 8.08 10x3/uL (1.40-6.50); %Basophils 0.5 % (0.0-1.0); %Eosinophils 1.9 % (0.0-10.0); %Lymphocytes 13.3 % (21.0-51.0); %Monocytes 6.2 % (0.0-10.0); %Neutrophils 77.1 % (42.0-75.0); Hematocrit 34.5 % (42.0-52.0); Hemoglobin 10.3 g/dL (14.0-18.0); Mean Corpuscular Hemoglobin 26.3 pg (27.0-31.0); Mean Corpuscular Volume 88.0 fL (78.0-98.0); Platelet Count 710 10x3/uL (130-400); Red Blood Cell (RBC) Count 3.92 mill/uL (4.70-6.10); White Blood Cell (WBC) Count 10.48 10x3/uL (4.8-10.8)
[2025-09-13 10:51] LABS: Bacteria/HPF None Seen HPF (None Seen); CAUTI Indications for Culture Pelvic or flank pain; Glucose, Urine (Dipstick) 100 mg/dL (Negative); Leukocyte 250 Leu/uL (Negative); Protein, Urine (Dipstick) Negative (Neg-Trace); RBC/HPF None Seen HPF (0-3); Specific Gravity, Urine 1.007 (1.002-1.036); WBC/HPF 0-3 HPF (0-3)
[2025-09-13 10:56] LABS: Urine Culture Reflex No No
[2025-09-13 11:09] LABS: ALT (SGPT) 61 U/L (Less than 45); AST (SGOT) 69 U/L (11-34); Albumin 2.0 g/dL (3.1-4.5); Alkaline Phosphatase 323 U/L (40-110); Anion Gap 16 mmol/L (10-20); BUN (Urea Nitrogen) 28 mg/dL (8.4-25.7); Bilirubin, Total 0.2 mg/dL (0.3-1.2); Calc. Creatinine Clearance 0 mL/min (70-130); Calcium 10.0 mg/dL (7.8-10.44); Carbon Dioxide 25 mmol/L (23-31); Chloride 96 mmol/L (98-107); Globulin 4.6 g/dL (2.4-3.5); Glucose 200 mg/dL (80-115); Potassium 4.8 mmol/L (3.5-5.1); Sodium 132 mmol/L (136-145)
[2025-09-13] MEDS ORDERED: Vancomycin 1.5 GM / NS 500ML VIAL-2-BAG IVPB SCH (13:00)
[2025-09-13] MEDS ORDERED: LevoFLOXacin 750 mg/D5W 150 ml Premix Bag ONE (13:32)
[2025-09-13] MEDS ORDERED: Clindamycin/D5W 900 MG in Premix 1 BAG IVPB SCH (14:45)
== END 2025-09-13 18:08 | disposition home or self-care (01) ==
LOC: ERS 09:20
DX: L03.317 Cellulitis of buttock (principal); R79.82 Elevated C-reactive protein (CRP); E87.1 Hypo-osmolality and hyponatremia; E87.8 Other disorders of electrolyte and fluid balance, not elsewhere classified; R79.89 Other specified abnormal findings of blood chemistry; I50.9 Heart failure, unspecified; I48.91 Unspecified atrial fibrillation; J44.9 Chronic obstructive pulmonary disease, unspecified; Z87.891 Personal history of nicotine dependence; Z79.899 Other long term (current) drug therapy; Z79.01 Long term (current) use of anticoagulants
CPT/HCPCS: 36415; 74177; 80053; 81001; 83605; 85025; 86141; 87040; 96365; 96366; 96367; 96375; J1956; J3010; J3490; J7030